=== PATIENT | female | born 1955 | race Caucasian/White ===

== ENCOUNTER 2021-04-03 06:38 | Outpatient (REF) | payer MEDICARE, MEDICAID, SELFPAY ==
[2021-04-03 08:09] LABS: Alanine Aminotransferase 9 U/L (0-31); Albumin Level 4.1 g/dL (3.5-5.0); Alkaline Phosphatase 78 U/L (39-117); Anion Gap 11 (12-20); Aspartate Amino Transferase 13 U/L (5-31); Bilirubin Total 0.3 mg/dL (0.0-1.0); Blood Urea Nitrogen 20 mg/dL (9-16); Calcium 9.3 mg/dL (8.4-10.2); Carbon Dioxide 26 mmol/L (22-29); Chloride 110 mmol/L (96-108); Estimated Glomerular Filt Rate > 60; Glucose Fasting 136 mg/dL (60-99); Potassium 4.3 mmol/L (3.3-5.1); Sodium 143 mmol/L (135-145); Total Protein 6.6 g/dL (6.5-8.0)
== END 2021-04-03 06:39 | disposition home or self-care (01) ==
LOC: HO.LAB 06:38
PROVIDERS: Absent Provider Nurse Practitioner Family; PCP Internal Medicine; Visit Provider Internal Medicine
DX: Z13.1 Encounter for screening for diabetes mellitus (principal)
CPT/HCPCS: 36415; 80053

== ENCOUNTER 2021-06-02 12:05 | Outpatient (REF) | payer MEDICARE, MEDICAID, SELFPAY ==
--- NOTE | ~2021-06-02 | MM_ITS ---
EXAMINATION: BONE DENSITOMETRY CLINICAL INDICATION: Asymptomatic menopausal state. COMPARISON: Previous BD dated 07/20/2011 and baseline BD dated 09/11/2005. TECHNIQUE: Using a [employer] DXA System (software version: 13.1) manufactured by [employer], dual-energy x-ray absorptiometry was performed of the lumbar spine and left hip. The images are of good technical quality. Summary results are attached. FINDINGS: AP SPINE L1-L4: Current: BMD 1.004 g/cm2, Z-score 0.7, T-score -1.5, osteopenia, 1.6% increase from previous, 3.2% increase from baseline (<5% change is not significant). Prior: BMD 0.988 g/cm2. Baseline: BMD 0.973 g/cm2. LEFT FEMUR, NECK: Current: BMD 0.757 g/cm2, Z-score -0.2, T-score -2.0, osteopenia. Prior: BMD 0.850 g/cm2. Baseline: BMD 0.898 g/cm2. LEFT FEMUR, TOTAL: Current: BMD 0.903 g/cm2, Z-score 0.8, T-score -0.8, normal, 10.1% decrease from previous, 12.2% decrease from baseline (<5% change is not significant). Prior: BMD 1.004 g/cm2. Baseline: BMD 1.029 g/cm2. IDENTIFIED RISK FACTORS: Menopause, tobacco use (current smoker). HISTORY OF FRACTURE: None listed. MEDICATIONS: None listed. MM/XR DEXA axial skeleton IMPRESSION: 1. DIAGNOSIS: Osteopenia based on the lowest T-score value of -2.0 in the femoral neck applying World Health Organization criteria. 2. 10-YEAR FRACTURE RISK PREDICTION, FRAX: Major osteoporotic fracture (clinical spine, forearm, hip or shoulder) 9.9%. Hip fracture 2.7%. 3. Treatment Recommendations: NOF guidelines recommend consideration for treatment in postmenopausal women and men age 50 and older presenting with the following: -A hip or vertebral (clinical or morphometric) fracture. -T-score less than or equal to -2.5 at the femoral neck or spine after appropriate evaluation to exclude secondary causes. -Low bone mass at the hip or spine and a 10-year fracture probability by FRAX of greater than or equal to 3% for hip fracture or greater than or equal to 20% for major osteoporotic fracture based on the [place] adapted WHO algorithm. 4. Other Recommendations: All treatment decisions require clinical judgment and consideration of individual patient factors, including patient preferences, comorbidities, previous drug use, risk factors not captured in the FRAX model (e.g. frailty, falls, vitamin D deficiency, increased bone turnover, interval significant decline in bone density) and possible under or overestimation of fracture risk by FRAX. Additional medical evaluation for secondary cause of low bone mineral density may be appropriate. FUTURE SCAN RECOMMENDATION: People with diagnosed cases of osteoporosis or at high risk for fracture should have regular bone mineral density tests. For patients eligible for Medicare, routine testing is allowed once every 2 years. The testing frequency can be increased to one year for patients who have rapidly progressing disease, those who are receiving or discontinuing medical therapy to restore bone mass, or have additional risk factors.
--- NOTE | ~2021-06-02 | MM_ITS ---
EXAMINATION: MM SCREENING DIGITAL BREAST TOMOSYNTHESIS, BILATERAL CLINICAL INFORMATION: Screening. Asymptomatic. The lifetime risk of breast cancer based on the Tyrer-Cuzick Model is 5%. COMPARISON: Mammography: 05/02/2020, 04/24/2019, 04/22/2018 TECHNIQUE: Digital breast tomosynthesis is performed in both the craniocaudal and mediolateral oblique views along with computer-aided detection (CAD). Synthesized 2D images are generated from the tomosynthesis. FINDINGS: The breasts are heterogeneously dense, which may obscure small masses (ACR BI-RADS breast composition Category c). There are no significant masses, abnormal calcifications, or other abnormalities. Breast tissue composition borders on average fibroglandular. Parenchymal pattern similar to prior studies. No developing density. MM/MM tomosynthesis screening BI IMPRESSION: No mammographic evidence of malignancy. ASSESSMENT: BI-RADS 1: Negative RECOMMENDATION: Routine annual mammography screening. This patient's information was entered into a reminder system with a target due date for their next mammogram.
== END 2021-06-02 12:06 | disposition home or self-care (01) ==
LOC: HO.MAMMO 12:05
PROVIDERS: PCP Internal Medicine; Visit Provider Nurse Practitioner Family
DX: Z12.31 Encounter for screening mammogram for malignant neoplasm of breast (principal); Z13.820 Encounter for screening for osteoporosis; M85.80 Other specified disorders of bone density and structure, unspecified site; Z78.0 Asymptomatic menopausal state
CPT/HCPCS: 77063; 77067; 77080

== ENCOUNTER 2022-01-08 06:13 | Outpatient (REF) | payer MEDICARE, MEDICAID, SELFPAY ==
[2022-01-08 06:43] LABS: MANUAL DIFF FLAG NO
[2022-01-08 07:28] LABS: Basophils Absolute Auto 0.1 X10*3/uL (0.0-0.2); Basophils Percent Auto 0.5 % (0-2); Eosinophils Absolute Auto 0.3 X10*3/uL (0.0-0.4); Eosinophils Percent Auto 2.7 % (0-4); Hemoglobin 15.4 g/dl (12.0-16.0); Imm Gran Abs Auto 0.03 X10*3/uL (0.00-0.03); Imm Gran Pct Auto 0.3 % (0.0-0.4); Lymphocytes Absolute Auto 2.3 X10*3/uL (1.2-4.9); Lymphocytes Percent Auto 23.7 % (20-40); Mean Corpuscular HGB Conc 32.8 g/dl (31.0-35.0); Mean Corpuscular Hemoglobin 29.9 pg (27.0-33.0); Mean Corpuscular Volume 91.3 fL (80.0-98.0); Mean Platelet Volume 9.1 fL (9.4-12.3); Monocytes Absolute Auto 0.8 X10*3/uL (0.1-1.2); Monocytes Percent Auto 8.6 % (2-11); Neutrophils Absolute Auto 6.2 x10*3/uL (2.0-8.3); Neutrophils Percent Auto 64.2 % (45-73); Platelet Count 236 X10*3/uL (160-400); Red Blood Count 5.15 X10*6/uL (4.20-5.50); Red Cell Distribution Width 12.7 % (11.0-16.0); White Blood Count 9.7 X10*3/uL (4.8-10.8)
[2022-01-08 08:09] LABS: Alanine Aminotransferase 14 U/L (0-31); Albumin Level 4.1 g/dL (3.5-5.0); Alkaline Phosphatase 84 U/L (39-117); Anion Gap 14 (12-20); Aspartate Amino Transferase 19 U/L (5-31); Bilirubin Total 0.5 mg/dL (0.0-1.0); Blood Urea Nitrogen 13 mg/dL (9-16); Calcium 9.4 mg/dL (8.4-10.2); Carbon Dioxide 28 mmol/L (22-29); Chloride 104 mmol/L (96-108); Cholesterol 219 mg/dL; Estimated Glomerular Filt Rate > 60; Glucose Fasting 146 mg/dL (60-99); HDL Cholesterol 49 mg/dL; LDL Cholesterol Calculated 142 mg/dl; Potassium 5.5 mmol/L (3.3-5.1); Sodium 140 mmol/L (135-145); Total Protein 6.7 g/dL (6.5-8.0); Triglycerides 141 mg/dL
[2022-01-08 08:15] LABS: Thyroid Stimulating Hormone 2.55 uIU/mL (0.32-4.0)
== END 2022-01-08 06:14 | disposition home or self-care (01) ==
LOC: HO.LAB 06:13
PROVIDERS: PCP Internal Medicine; Visit Provider Internal Medicine
DX: Z00.00 Encounter for general adult medical examination without abnormal findings (principal); E78.5 Hyperlipidemia, unspecified
CPT/HCPCS: 36415; 80053; 80061; 84443; 85025

== ENCOUNTER 2022-06-14 10:47 | Outpatient (REF) | payer MEDICARE, MEDICAID, SELFPAY ==
--- NOTE | ~2022-06-14 | MM_ITS ---
EXAMINATION: MM SCREENING DIGITAL BREAST TOMOSYNTHESIS, BILATERAL CLINICAL INFORMATION: Screening. Asymptomatic. COMPARISON: Mammography: June 02, 2021 and studies dating back to February 10, 2016 TECHNIQUE: Digital breast tomosynthesis is performed in both the craniocaudal and mediolateral oblique views along with computer-aided detection (CAD). Synthesized 2D images are generated from the tomosynthesis. FINDINGS: The breasts are heterogeneously dense, which may obscure small masses (ACR BI-RADS breast composition Category c). There are no significant masses, abnormal calcifications, or other abnormalities. MM/MM tomosynthesis screening BI IMPRESSION: No significant changes from prior exam. ASSESSMENT: BI-RADS 1: Negative RECOMMENDATION: Routine annual mammography screening. This patient's information was entered into a reminder system with a target due date for their next mammogram.
== END 2022-06-14 10:48 | disposition home or self-care (01) ==
LOC: HO.MAMMO 10:47
PROVIDERS: Visit Provider Internal Medicine
DX: Z12.31 Encounter for screening mammogram for malignant neoplasm of breast (principal)
CPT/HCPCS: 77063; 77067

== ENCOUNTER 2023-03-29 10:24 | Outpatient (AMB) | payer MEDICARE, MEDICAID, SELFPAY ==
--- NOTE | 2023-03-29 10:31 | AM.OFFVISMDC ---
Intake Vital Signs 03/29/23 10:38 03/29/23 11:09 Height 5 ft 1 in Weight 134 lb 6 oz BMI 25.4 BP 162/90 H 152/90 H Blood Pressure Location Lt brachial Lt brachial Position Sitting Sitting Pulse 77 Pulse Source Pulse Oximeter Pulse Oximetry (%) 95 Oxygen Delivery Method Room Air Intake Visit Reasons: [facility] Intake Note: Patient is here for an Annual Wellness Visit. Internet Developer Required: No Accompanied by: Self / Same As Patient Allergies Sulfa (Sulfonamide Antibiotics) [Sulfa (Sulfonamides)] Allergy (Mild, Verified 03/29/23 11:02) UNKNOWN Medication List - Last Reconciled 03/29/23 by HOA Ramsey albuterol sulfate 90 mcg/actuation (Ventolin HFA) 2 puffs inhalation Q4-6H PRN lorazepam 1 mg PO BID PRN naproxen (Naprosyn) 500 mg PO BID PRN HPI [facility] HPI Details Patient is a 68-year-old female who presents today for subsequent wellness visit.? Patient of Dr. Pierre. Patient had a negative Cologuard 04/2021.? Bone density screen 05/2021 which showed osteopenia.? Mammogram negative 06/2022. Up-to-date with immunizations. [place] of care was reviewed with the patient and she was provided with a screening schedule.? Patient has a healthcare proxy in place and she will provide office with a copy, patient was provided with a MOLST form. Patient reports normal blood pressures at home 120s/70s. ? PFSH Medical History Hypertension Post-menopausal Screening for breast cancer Screening for diabetes mellitus Surgical History History of tonsillectomy History of tubal ligation Family History Father Medical history unknown Mother Diabetes Social History Housing: Apartment Alcohol intake: former Year quit: 2019 Patient Tobacco Use Status: Current someday Tobacco user Tobacco use type: Cigarette Cigarettes Per Day: 8 e-Cigarette/Vaping Use: Never Used service: No Current occupational status: disabled Cognitive needs: No Hearing needs: No Vision needs: No Questionnaire Medicare Wellness Checkup [age] 65-70 What gender do you identify with?: female During the past 4 weeks, how much have you been bothered by emotional problems such as feeling anxious, depressed, irritable, sad or downhearted, and blue?: not at all During the past 4 weeks, has your physical & emotional health limited your social activities with family, friends, neighbors, or groups?: not at all During the past 4 weeks, how much bodily pain have you generally had?: very mild pain During the past 4 weeks, was someone available to help you if you needed & wanted help?: yes, as much as I wanted During the past 4 weeks, what was the hardest physical activity you could do for at least 2 minutes?: very light Can you get to places out of walking distance without help? (For eg., can you travel alone on buses, taxis or drive your car?): Yes Can you go shopping for groceries or clothes without someone's help?: Yes Can you prepare your own meals?: Yes Can you do your housework without help?: Yes Because of any health problems, do you need the help of another person with your personal care needs such as eating, bathing, dressing or getting around the house?: No Can you handle your own money without help?: Yes During the past 4 weeks, how would you rate your health in general?: excellent During the past 4 weeks how have things been going for you?: very well; could hardly better Are you having difficulties driving your car?: not applicable, I don't use a car Do you always fasten your seat belt when you are in a car?: yes, usually During past 4 weeks, have you been bothered by the following: never: Falling or dizzy when standing up, Sexual problems?, Trouble eating well?, Teeth or denture problems? and Problems using the telephone? and seldom: Tiredness or fatigue? Have you fallen 2 or more times in the past year?: No Are you afraid of falling?: No Are you a smoker?: yes, and I might quit During the past 4 weeks, how many drinks of wine, beer, or other alcoholic beverages did you have?: no alcohol at all Do you exercise for about 20 minutes 3 or more times a week?: yes, all the time Have you been given information to help with the following?: no: Hazards in your house that might hurt you? and no: Keeping track of your medications? How often do you have trouble taking medicines the way you have been told to take them?: I always take medicine as prescribed How confident are you that you can control & manage most of your health problems?: very confident What is your race?: White Mini Mental State Exam (MMSE) Orientation What is the (year) (season) (date) (day) (month)?: year, season, date, day and month Score Score: 5 Activity of Daily Living Bathing - sponge bath, tub bath or shower: receives no assistance (gets in/out by self, if usual bathing means Dressing - getting clothes from closets & drawers, including inner/outer garments & fasteners.: gets clothes & gets completely dressed without help Toileting - going to the 'toilet room' for urine/bowel elimination & cleaning self/arranging clothes: goes to toilet room, cleans self, arranges clothes without help Transfer: moves in & out of bed and chair without help (may use support object) Continence: controls urination/bowel movements completely by self Feeding: feeds self without help Total Score: 0 Information obtained from: patient Using telephone: independent Traveling: dependent Shopping: independent Preparing meals: independent Housework: independent Taking medicine: independent Managing money: independent PHQ-9 Over the last 2 weeks, how often have you been bothered by any of the following problems? 1. Little interest or pleasure in doing things: not at all 2. Feeling down, depressed, or hopeless: not at all 3. Trouble falling or staying asleep, or sleeping too much: not at all 4. Feeling tired or having little energy: not at all 5. Poor appetite or overeating: not at all 6. Feeling bad about yourself - or that you are a failure or have let yourself or your family down: not at all 7. Trouble concentrating on things, such as reading the newspaper or watching television: not at all 8. Moving or speaking so slowly that other people could have noticed. Or the opposite - being so fidgety or restless that you have been moving around a lot more than usual: not at all 9. Thoughts that you would be better off or of hurting yourself in some way: not at all Total score: 0 Depression Screening Interpretation: Negative 93536 - PHQ-9 Billing: Yes Source: Developed by Drs. Colby Johnson, Adrianna Becerra, Jorge Roper and colleagues, with an educational pilo from [employer]. Physical Exam Vital Signs: Last Vital Signs Pulse 77 03/29/23 10:38 BP 162/90 H 03/29/23 10:38 Pulse Ox 95 03/29/23 10:38 Oxygen Delivery Method Room Air 03/29/23 10:38 BMI result Body Mass Index 25.4 Const General: cooperative and no acute distress Orientation/consciousness: patient oriented x3 HEENT Other: Whisper test: pass Neuro Other: Balance: Normal Get up and walk: able to Romberg: negative Tandem gait: unable to General: patient oriented x3 Results AMB Hemoglobin A1c AMB Hemoglobin A1c 5.8 % Last Edit by VIKA Whitmore on 03/29/23 10:56 Results Reviewed Results Reviewed: Laboratory Last Values Hgb A1c (Clinic) 5.8 % (4.0-6.0) 03/29/23 10:46 Assessment & Plan Assessment & Plan (1) Adult general medical exam: Code(s): Z00.00 - Encounter for general adult medical examination without abnormal findings (2) Insomnia disorder: Code(s): G47.00 - Insomnia, unspecified Plan: Patient is on lorazepam 1 mg b.i.d. as needed (3) Cerebral palsy: Code(s): G80.9 - Cerebral palsy, unspecified Plan: Patient is able to perform activities of daily living. Patient is noted to have speech impairment which is related to her cerebral palsy per patient. She does not see a specialist. (4) Hypertension: Code(s): I10 - Essential (primary) hypertension Plan: Reinforced low-sodium diet and exercise as tolerated. Goal BP equal or less than 140/90 Patient reports normal blood pressures at home (5) Screening for diabetes mellitus: Code(s): Z13.1 - Encounter for screening for diabetes mellitus Plan: A1c 5.8 today Plan Keep appointment with PCP as scheduled or follow-up sooner as needed Orders: Orders AMB Hemoglobin A1c Today Z13.1 - Encounter for screening for diabetes mellitus Quality Reporting (2019) Depression/Bipolar (159/160/161/177) PHQ-9: Total score: 0 Coding Level of Care Code Medicare Subsequent (G0439) Diagnoses Adult general medical exam Z00.00 Insomnia disorder G47.00 Cerebral palsy G80.9 Hypertension I10 Screening for diabetes mellitus Z13.1 CPT Codes Advance Care Planning - Time spent: 1-15 minutes, not on file ([id number]) Advance Care Planning Advance Care Planning discussion: Exists, not on file Date of discussion: 03/29/23 Who was present: pt and clerical assigner Forms completed: None Time spent: 1-15 minutes, not on file Actual minutes spent: 2 Did not discuss due to Cultural/Spiritual beliefs: No
[2023-03-29 10:38] VITALS: BP 162/90; PULSE 77; O2SAT 95; BMI 25.4
[2023-03-29 11:09] VITALS: BP 152/90
== END 2023-03-29 11:12 | disposition home or self-care (01) ==
PROVIDERS: Visit Provider Nurse Practitioner Family
DX: Z00.00 Encounter for general adult medical examination without abnormal findings (principal); G47.00 Insomnia, unspecified; G80.9 Cerebral palsy, unspecified; I10 Essential (primary) hypertension; Z13.1 Encounter for screening for diabetes mellitus
CPT/HCPCS: 1124F; 83036; G0439

== ENCOUNTER 2023-05-24 08:46 | Outpatient (AMB) | payer MEDICARE, MEDICAID, SELFPAY ==
--- NOTE | 2023-05-24 09:49 | MHC.OFFWIV ---
Intake Vital Signs 05/24/23 09:51 Height 5 ft 1 in Weight 138 lb BMI 26.1 BP 150/80 H Blood Pressure Location Lt brachial Position Sitting Pulse 80 Pulse Source Pulse Oximeter Temp 97.9 F Temp Source Temporal Artery Scan Pulse Oximetry (%) 96 Oxygen Delivery Method Room Air Intake Visit Reasons: EP Cold symptoms [id number] Intake Note: pt is here for c/o wheezing, possible bronchitis Patient Tobacco Use Status: Current someday Tobacco user Allergies Sulfa (Sulfonamide Antibiotics) [Sulfa (Sulfonamides)] Allergy (Mild, Verified 05/24/23 10:40) UNKNOWN Medication List - Last Reconciled 05/24/23 by Linden Bowles MD albuterol sulfate 90 mcg/actuation (Ventolin HFA) 2 puffs inhalation Q4-6H PRN lorazepam 1 mg PO BID PRN naproxen (Naprosyn) 500 mg PO BID PRN Do you need a note to return to daycare/school/sports/work: Yes HPI EP Cold symptoms [id number] HPI Details Patient presents for a sick visit. Reporting symptoms of sinus congestion, sore throat and difficulty swallowing. Low-grade fever. No family member is sick. No recent travel. Patient reports symptoms of malaise and fatigue.. Patient tested for COVID at home and was negative. [facility] Medical History Hypertension Post-menopausal Screening for breast cancer Screening for diabetes mellitus Surgical History History of tonsillectomy History of tubal ligation Family History Father Medical history unknown Mother Diabetes Social History Housing: Apartment Alcohol intake: former Year quit: 2019 Patient Tobacco Use Status: Current someday Tobacco user Tobacco use type: Cigarette Cigarettes Per Day: 8 e-Cigarette/Vaping Use: Never Used service: No Current occupational status: disabled Cognitive needs: No Hearing needs: No Vision needs: No Physical Exam Vital Signs: Last Vital Signs Temp 97.9 F 05/24/23 09:51 Pulse 80 05/24/23 09:51 BP 150/80 H 05/24/23 09:51 Pulse Ox 96 05/24/23 09:51 Oxygen Delivery Method Room Air 05/24/23 09:51 BMI result Body Mass Index 26.1 Const General: cooperative and healthy appearing Nutritional Appearance: well nourished Orientation/consciousness: patient oriented x3 Limitations: no limitations HEENT Head: Yes normal to inspection Eyes General: appearance normal, both eyes and all related structures Neck Neck: Yes normal visual inspection Chest Chest palpation & inspection: normal palpation of entire chest wall Resp Effort & Inspection: normal respiratory effort Neuro General: patient oriented x3 Assessment & Plan Assessment & Plan (1) Upper respiratory tract infection: Code(s): J06.9 - Acute upper respiratory infection, unspecified Plan: Antibiotics ordered. Increase fluid intake. Tylenol for aches and pains. If symptoms worsen, follow-up here for a recheck. Coding Level of Care Code Est Pt Level 3 (53667) Diagnoses Upper respiratory tract infection J06.9
[2023-05-24 09:51] VITALS: BP 150/80; PULSE 80; TEMP 36.6; O2SAT 96; BMI 26.1
== END 2023-05-24 10:56 | disposition home or self-care (01) ==
PROVIDERS: PCP Internal Medicine; Visit Provider Internal Medicine
DX: J06.9 Acute upper respiratory infection, unspecified (principal)
CPT/HCPCS: 99213

== ENCOUNTER 2023-07-09 10:20 | Outpatient (AMB) | payer MEDICARE, MEDICAID, SELFPAY ==
[2023-07-09 10:22] VITALS: BP 140/82; PULSE 82; O2SAT 98; BMI 25.3
--- NOTE | 2023-07-09 10:22 | A.OFFPC_ITS ---
Vital Signs 07/09/23 10:22 Height 5 ft 1 in Weight 134 lb BMI 25.3 BP 140/82 H Blood Pressure Location Lt brachial Position Sitting Pulse 82 Pulse Source Pulse Oximeter Pulse Oximetry (%) 98 Oxygen Delivery Method Room Air Intake Visit Reasons: 1 year F/u Headline Writer Required: No Prior Authorization Nurse: Not Required per policy Accompanied by: Self / Same As Patient Allergies Sulfa (Sulfonamide Antibiotics) [Sulfa (Sulfonamides)] Allergy (Mild, Verified 05/24/23 10:40) UNKNOWN Medication List - Last Reconciled 07/09/23 by Kody Pierre MD albuterol sulfate 90 mcg/actuation (Ventolin HFA) 2 puffs inhalation Q4-6H PRN lorazepam 1 mg PO BID PRN naproxen (Naprosyn) 500 mg PO BID PRN Tobacco use date assessed: 07/09/22 Fall risk assessment: No Falls in past year Last assessed Fall Risk: 07/09/23 Dental Screening Dental Screen Date: 07/09/23 Did you have a dental visit in the last 12 months?: No Did you have a dental problem in the last 6 months where you did not have access to dental care?: No Was dental information given to patient?: Patient has dentist HPI 1 year F/u HPI Details asthma anxiety and osteoarthritis; doing well and stable on rx PFSH Medical History Post-menopausal Screening for breast cancer Screening for diabetes mellitus Hypertension Surgical History History of tubal ligation History of tonsillectomy Family History Father Medical history unknown Mother Diabetes Social History Housing: Apartment Alcohol intake: former Year quit: 2019 Patient Tobacco Use Status: Current someday Tobacco user Tobacco use type: Cigarette Cigarettes Per Day: 8 e-Cigarette/Vaping Use: Never Used service: No Current occupational status: disabled Cognitive needs: No Hearing needs: No Vision needs: Yes Questionnaire PHQ-9 Over the last 2 weeks, how often have you been bothered by any of the following problems? 1. Little interest or pleasure in doing things: not at all 2. Feeling down, depressed, or hopeless: not at all 3. Trouble falling or staying asleep, or sleeping too much: not at all 4. Feeling tired or having little energy: not at all 5. Poor appetite or overeating: not at all 6. Feeling bad about yourself - or that you are a failure or have let yourself or your family down: not at all 7. Trouble concentrating on things, such as reading the newspaper or watching television: not at all 8. Moving or speaking so slowly that other people could have noticed. Or the opposite - being so fidgety or restless that you have been moving around a lot more than usual: not at all 9. Thoughts that you would be better off or of hurting yourself in some way: not at all Total score: 0 Depression Screening Interpretation: Negative Depression Screening Done: Yes 98688 - PHQ-9 Billing: Yes Source: Developed by Drs. Colby Johnson, Adrianna Becerra, Jorge Roper and colleagues, with an educational pilo from [employer]. Thrive Questionnaire Date Thrive assessed: 07/09/23 I am a: Patient What is your living situation today?: I have a steady place to live Within the past 12 months, did the food you bought not last and you didn't have the money to get more?: Never true Within the past 12 months, did you worry whether your food would run out before you got money to buy more?: Never true Do you have trouble paying for medicines?: No Do you have trouble getting transportation to medical appointments?: No Do you have trouble paying your heating and electricity bill?: No Do you have trouble taking care of your child, family member or friend?: No Do you have trouble with day-to-day activities such as bathing, preparing meals, shopping, managing finances, etc.?: No Are you currently unemployed and looking for a job?: No Are you interested in more education?: No Please select the resources that you would like help with: None AUDIT C Alcohol Use Questionnaire (AUDIT-C) 1. How often do you have a drink containing alcohol?: Never 3. How often do you have six or more drinks on one occasion?: Never Total Score: 0 Score Reviewed/Action Taken: Yes TUYET-7 AMB Questionnaire TUYET-7 Date TUYET - 7 assessed: 07/09/23 Feeling nervous, anxious, or on edge: 0 = Not at all Not being able to stop or control worryin = Not at all Worrying too much about different things: 0 = Not at all Trouble relaxin = Not at all Being so restless that it is hard to sit still: 0 = Not at all Becoming easily annoyed or irritable: 0 = Not at all Feeling afraid as if something awful might happen: 0 = Not at all Total TUYET-7 score (0-4 normal; 5-9 mild; 10-14 moderate; 15-21 severe): 0 Source: Developed by Drs. Colby Johnson, Adrianna Becerra, Jorge Roper and colleagues, with an educational pilo from [employer]. TUYET-7 Assessment Billing TUYET-7 Assessment Tool: TUYET-7 Assessment 94797 Review of Systems Const Denies chills, Denies headache(s) and Denies weight loss ENT Denies headache(s) Card Denies chest pain, Denies syncope, Denies irregular heart rhythm and Denies dyspnea Resp Denies chest congestion, Denies cough and Denies dyspnea GI Denies abdominal pain, Denies change in stool character, Denies nausea and Denies vomiting Musc Denies deformity and Denies joint swelling Neuro Denies syncope and Denies headache(s) Physical exam (Primary Care) Vital Signs: Last Vital Signs Pulse 82 07/09/23 10:22 BP 140/82 H 07/09/23 10:22 Pulse Ox 98 07/09/23 10:22 Oxygen Delivery Method Room Air 07/09/23 10:22 BMI result Body Mass Index 25.3 Tobacco/Smoking Status: Tobacco use Status Tobacco use date assessed 07/09/22 07/09/23 10:23 Patient Tobacco Use Status Current someday Tobacco 07/09/23 10:23 Tobacco use type Cigarette 07/09/23 10:23 e-Cigarette/Vaping Use Never Used 07/09/23 10:23 PHQ-9: PHQ-9 Score PHQ-9: Total score 0 07/09/23 10:35 Depression Screening Interpretation: Negative Thrive Assessment: Date of Thrive Assessment Date Thrive assessed 07/09/23 07/09/23 10:23 Const General: cooperative, comfortable, no acute distress and alert Neck Neck: Yes no lymphadenopathy Thyroid: Thyroid normal Resp Effort & Inspection: normal respiratory effort Auscultation: clear to auscultation bilaterally Percussion: percussion normal Cardio Jugular venous distension: no JVD Palpation: normal PMI Rate: regular rate Rhythm: regular rhythm Heart sounds: S1 normal heart sound present and S2 normal heart sound present GI Inspection: Yes normal to inspection Palpation (GI): No hepatosplenomegaly present Skin General skin exam: no rashes or lesions noted Extrem General: Yes no clubbing, cyanosis or edema Assessment and Plan Assessment & Plan (1) Anxiety: Code(s): F41.9 - Anxiety disorder, unspecified Plan: stable; same rx (2) Asthma: Code(s): J45.909 - Unspecified asthma, uncomplicated Plan: stable; same rx (3) Osteoarthritis: Code(s): M19.90 - Unspecified osteoarthritis, unspecified site Plan: stable; same rx Orders: Orders Thyroid Stimulating Hormone Today E03.9 - Hypothyroidism, unspecified Complete Blood Count Auto Diff Today D64.9 - Anemia, unspecified Lipid Panel Today E78.5 - Hyperlipidemia, unspecified Comprehensive [place]. Panel Fast Today N28.9 - Disorder of kidney and ureter, unspecified Coding Level of Care Code Est Pt Level 4 (75736) Diagnoses Anxiety F41.9 Asthma J45.909 Osteoarthritis M19.90 Additional Codes TUYET-7 Assessment Billing - TUYET-7 Assessment Tool: TUYET-7 Assessment 63636 ([id number])
== END 2023-07-09 10:51 | disposition home or self-care (01) ==
PROVIDERS: Visit Provider Internal Medicine
DX: F41.9 Anxiety disorder, unspecified (principal); J45.909 Unspecified asthma, uncomplicated; M19.90 Unspecified osteoarthritis, unspecified site
CPT/HCPCS: 99214

== ENCOUNTER 2023-07-18 14:43 | Outpatient (REF) | payer MEDICARE, MEDICAID, SELFPAY | END 2023-07-18 14:44 | disposition home or self-care (01) | LOC: HO.MAMMO 14:43 | PROVIDERS: PCP Internal Medicine; Visit Provider Internal Medicine | DX: Z12.31 Encounter for screening mammogram for malignant neoplasm of breast (principal) | CPT/HCPCS: 77063; 77067 ==

== ENCOUNTER → 2023-07-18 15:15 | Outpatient (BNV) | payer MEDICARE, MEDICAID, SELFPAY | PROVIDERS: PCP Internal Medicine; Visit Provider Radiology Diagnostic Radiology | DX: Z12.31 Encounter for screening mammogram for malignant neoplasm of breast (principal) | CPT/HCPCS: 77063; 77067 ==

== ENCOUNTER 2023-09-16 06:13 | Outpatient (REF) | payer OTHER, SELFPAY ==
[2023-09-16 06:35] LABS: MANUAL DIFF FLAG NO
[2023-09-16 08:03] LABS: Basophils Absolute Auto 0.1 X10*3/uL (0.0-0.2); Basophils Percent Auto 0.8 % (0-2); Eosinophils Absolute Auto 0.7 X10*3/uL (0.0-0.4); Eosinophils Percent Auto 8.2 % (0-4); Hematocrit 45.1 % (37.0-47.0); Hemoglobin 14.9 g/dl (12.0-16.0); Imm Gran Abs Auto 0.02 X10*3/uL (0.00-0.03); Imm Gran Pct Auto 0.2 % (0.0-0.4); Lymphocytes Absolute Auto 2.9 X10*3/uL (1.2-4.9); Mean Corpuscular Volume 90.7 fL (80.0-98.0); Mean Platelet Volume 9.5 fL (9.4-12.3); Monocytes Absolute Auto 0.8 X10*3/uL (0.1-1.2); Monocytes Percent Auto 8.4 % (2-11); Neutrophils Absolute Auto 4.6 x10*3/uL (2.0-8.3); Neutrophils Percent Auto 50.4 % (45-73); Platelet Count 231 X10*3/uL (160-400); Red Blood Count 4.97 X10*6/uL (4.20-5.50); Red Cell Distribution Width 12.6 % (11.0-16.0); White Blood Count 9.1 X10*3/uL (4.8-10.8)
[2023-09-16 08:10] LABS: Estimated Average Glucose 131 mg/dL; Hemoglobin A1c % 6.2 % (<6.0)
[2023-09-16 08:42] LABS: Alanine Aminotransferase 12 U/L (0-31); Albumin Level 3.8 g/dL (3.5-5.0); Alkaline Phosphatase 74 U/L (39-117); Anion Gap 14 (12-20); Aspartate Amino Transferase 18 U/L (5-31); Bilirubin Total 0.4 mg/dL (0.0-1.0); Blood Urea Nitrogen 18 mg/dL (9-16); Calcium 9.3 mg/dL (8.4-10.2); Carbon Dioxide 25 mmol/L (22-29); Chloride 107 mmol/L (96-108); Cholesterol 201 mg/dL (<200); Estimated Glomerular Filt Rate > 60; Glucose Fasting 122 mg/dL (60-99); HDL Cholesterol 54 mg/dL (>40); LDL Cholesterol Calculated 127 mg/dL (<100); Potassium 4.2 mmol/L (3.3-5.1); Sodium 142 mmol/L (135-145); Total Protein 6.5 g/dL (6.5-8.0); Triglycerides 104 mg/dL (<150)
[2023-09-16 08:59] LABS: Thyroid Stimulating Hormone 3.53 uIU/mL (0.32-4.0)
== END 2023-09-16 06:14 | disposition home or self-care (01) ==
LOC: HO.LAB 06:13
PROVIDERS: PCP Internal Medicine; Visit Provider Internal Medicine
DX: E03.9 Hypothyroidism, unspecified (principal); D64.9 Anemia, unspecified; R73.9 Hyperglycemia, unspecified; E78.5 Hyperlipidemia, unspecified; N28.9 Disorder of kidney and ureter, unspecified
CPT/HCPCS: 36415; 80053; 80061; 83036; 84443; 85025

== ENCOUNTER 2023-09-24 10:28 | Outpatient (AMB) | payer OTHER, SELFPAY ==
[2023-09-24 10:31] VITALS: BP 142/88; PULSE 72; O2SAT 97; BMI 25.5
--- NOTE | 2023-09-24 10:31 | MHC.PC.OV ---
Vital Signs 09/24/23 10:31 Height 5 ft 1 in Weight 135 lb BMI 25.5 BP 142/88 H Blood Pressure Location Lt brachial Position Sitting Pulse 72 Pulse Source Pulse Oximeter Pulse Oximetry (%) 97 Oxygen Delivery Method Room Air Intake Visit Reasons: Follow up Labs Oncology Registrar Required: No Blocker And Polisher Gold Wheel: Not Required per policy Accompanied by: Self / Same As Patient Allergies Sulfa (Sulfonamide Antibiotics) [Sulfa (Sulfonamides)] Allergy (Mild, Verified 09/24/23 10:31) UNKNOWN Medication List - Last Reconciled 09/24/23 by Kody Pierre MD albuterol sulfate 90 mcg/actuation (Ventolin HFA) 2 puffs inhalation Q4-6H PRN hydroxyzine pamoate 25 mg PO QID PRN lorazepam 1 mg PO BID PRN naproxen (Naprosyn) 500 mg PO BID PRN Tobacco use date assessed: 09/24/23 Fall risk assessment: No Falls in past year Last assessed Fall Risk: 09/24/23 Dental Screening Dental Screen Date: 09/24/23 Did you have a dental visit in the last 12 months?: Yes Did you have a dental problem in the last 6 months where you did not have access to dental care?: No Was dental information given to patient?: Patient has dentist HPI Follow up Labs HPI Details asthma on rx; doing well and compliant [facility] Medical History Post-menopausal Screening for breast cancer Screening for diabetes mellitus Hypertension Surgical History History of tubal ligation History of tonsillectomy Family History Father Medical history unknown Mother Diabetes Social History Housing: Apartment Alcohol intake: former Year quit: 2019 Patient Tobacco Use Status: Current someday Tobacco user Tobacco use type: Cigarette Cigarettes Per Day: 8 e-Cigarette/Vaping Use: Never Used service: No Current occupational status: disabled Cognitive needs: No Hearing needs: No Vision needs: Yes Questionnaire PHQ-9 Over the last 2 weeks, how often have you been bothered by any of the following problems? 1. Little interest or pleasure in doing things: not at all 2. Feeling down, depressed, or hopeless: not at all 3. Trouble falling or staying asleep, or sleeping too much: not at all 4. Feeling tired or having little energy: not at all 5. Poor appetite or overeating: not at all 6. Feeling bad about yourself - or that you are a failure or have let yourself or your family down: not at all 7. Trouble concentrating on things, such as reading the newspaper or watching television: not at all 8. Moving or speaking so slowly that other people could have noticed. Or the opposite - being so fidgety or restless that you have been moving around a lot more than usual: not at all 9. Thoughts that you would be better off or of hurting yourself in some way: not at all Total score: 0 Depression Screening Interpretation: Negative Depression Screening Done: Yes 65507 - PHQ-9 Billing: Yes Source: Developed by Drs. Colby Johnson, Adrianna Becerra, Jorge Roper and colleagues, with an educational pilo from [employer]. Thrive Questionnaire Date Thrive assessed: 08/07/23 I am a: Patient What is your living situation today?: I have a steady place to live Within the past 12 months, did the food you bought not last and you didn't have the money to get more?: Never true Within the past 12 months, did you worry whether your food would run out before you got money to buy more?: Never true Do you have trouble paying for medicines?: No Do you have trouble getting transportation to medical appointments?: No Do you have trouble paying your heating and electricity bill?: No Do you have trouble taking care of your child, family member or friend?: No Do you have trouble with day-to-day activities such as bathing, preparing meals, shopping, managing finances, etc.?: No Are you currently unemployed and looking for a job?: No Are you interested in more education?: No Please select the resources that you would like help with: None THRIVE Score: 0 AUDIT C Alcohol Use Questionnaire (AUDIT-C) 1. How often do you have a drink containing alcohol?: Never 3. How often do you have six or more drinks on one occasion?: Never Total Score: 0 Score Reviewed/Action Taken: Yes TUYET-7 AMB Questionnaire TUYET-7 Date TUYET - 7 assessed: 09/24/23 Feeling nervous, anxious, or on edge: 2 = More than half the days Not being able to stop or control worryin = Several days Worrying too much about different things: 2 = More than half the days Trouble relaxin = Several days Being so restless that it is hard to sit still: 0 = Not at all Becoming easily annoyed or irritable: 0 = Not at all Feeling afraid as if something awful might happen: 0 = Not at all Total TUYET-7 score (0-4 normal; 5-9 mild; 10-14 moderate; 15-21 severe): 6 Source: Developed by Drs. Colby Johnson, Adrianna Becerra, Jorge Roper and colleagues, with an educational pilo from [employer]. TUYET-7 Assessment Billing TUYET-7 Assessment Tool: TUYET-7 Assessment 60762 Review of Systems Const Denies chills, Denies headache(s) and Denies weight loss ENT Denies headache(s) Card Denies chest pain, Denies syncope, Denies irregular heart rhythm and Denies dyspnea Resp Denies chest congestion, Denies cough and Denies dyspnea GI Denies abdominal pain, Denies change in stool character, Denies nausea and Denies vomiting Musc Denies deformity and Denies joint swelling Neuro Denies syncope and Denies headache(s) Physical exam (Primary Care) Vital Signs: Last Vital Signs Pulse 72 09/24/23 10:31 BP 142/88 H 09/24/23 10:31 Pulse Ox 97 09/24/23 10:31 Oxygen Delivery Method Room Air 09/24/23 10:31 BMI result Body Mass Index 25.5 Tobacco/Smoking Status: Tobacco use Status Tobacco use date assessed 09/24/23 09/24/23 10:32 Patient Tobacco Use Status Current someday Tobacco 09/24/23 10:32 Tobacco use type Cigarette 09/24/23 10:32 e-Cigarette/Vaping Use Never Used 09/24/23 10:32 PHQ-9: PHQ-9 Score PHQ-9: Total score 0 09/24/23 10:32 Depression Screening Interpretation: Negative Thrive Assessment: Date of Thrive Assessment Date Thrive assessed 08/07/23 09/24/23 10:32 Const General: cooperative, comfortable, no acute distress and alert Neck Neck: Yes no lymphadenopathy Thyroid: Thyroid normal Resp Effort & Inspection: normal respiratory effort Auscultation: clear to auscultation bilaterally Percussion: percussion normal Cardio Jugular venous distension: no JVD Palpation: normal PMI Rate: regular rate Rhythm: regular rhythm Heart sounds: S1 normal heart sound present and S2 normal heart sound present GI Inspection: Yes normal to inspection Palpation (GI): No hepatosplenomegaly present Skin General skin exam: no rashes or lesions noted Extrem General: Yes no clubbing, cyanosis or edema Assessment and Plan Assessment & Plan (1) Asthma: Code(s): J45.909 - Unspecified asthma, uncomplicated Plan: stable; same rx Medications: New zolpidem (Ambien) 5 mg PO BEDTIME PRN 30 tabs 3RF insomnia Coding Level of Care Code Est Pt Level 3 (93234) Diagnoses Asthma J45.909 Additional Codes TUYET-7 Assessment Billing - TUYET-7 Assessment Tool: TUYET-7 Assessment 20357 ([id number])
== END 2023-09-24 10:56 | disposition home or self-care (01) ==
PROVIDERS: PCP Internal Medicine; Visit Provider Internal Medicine
DX: J45.909 Unspecified asthma, uncomplicated (principal)
CPT/HCPCS: 99213

== ENCOUNTER 2023-11-25 09:21 | Outpatient (AMB) | payer OTHER, SELFPAY ==
[2023-11-25 09:39] VITALS: BP 140/72; PULSE 50; O2SAT 98; BMI 26.3
--- NOTE | 2023-11-25 09:39 | A.OFFPC_ITS ---
Vital Signs 11/25/23 09:39 Height 5 ft 1 in Weight 139 lb BMI 26.3 BP 140/72 H Blood Pressure Location Lt brachial Position Sitting Pulse 50 Pulse Source Pulse Oximeter Pulse Oximetry (%) 98 Oxygen Delivery Method Room Air Intake Visit Reasons: stomach issues Tree Trimmer Helper Required: No Learning And Development Specialist: Not Required per policy Accompanied by: Self / Same As Patient Allergies Sulfa (Sulfonamide Antibiotics) [Sulfa (Sulfonamides)] Allergy (Mild, Verified 11/25/23 09:39) UNKNOWN Medication List - Last Reconciled 11/25/23 by Kody Pierre MD albuterol sulfate 90 mcg/actuation (Ventolin HFA) 2 puffs inhalation Q4-6H PRN hydroxyzine pamoate 25 mg PO QID PRN lorazepam 1 mg PO BID PRN naproxen (Naprosyn) 500 mg PO BID PRN zolpidem (Ambien) 5 mg PO BEDTIME PRN Tobacco use date assessed: 09/24/23 Fall risk assessment: No Falls in past year Last assessed Fall Risk: 11/25/23 Dental Screening Dental Screen Date: 09/24/23 HPI stomach issues HPI Details epigastric pain for a week; no nausea or vomiting PFSH Medical History Post-menopausal Screening for breast cancer Screening for diabetes mellitus Hypertension Surgical History History of tubal ligation History of tonsillectomy Family History Father Medical history unknown Mother Diabetes Social History Housing: Apartment Alcohol intake: former Year quit: 2019 Patient Tobacco Use Status: Current someday Tobacco user Tobacco use type: Cigarette Cigarettes Per Day: 8 e-Cigarette/Vaping Use: Never Used service: No Current occupational status: disabled Cognitive needs: No Hearing needs: No Vision needs: Yes Questionnaire Thrive Questionnaire Date Thrive assessed: 08/07/23 TUYET-7 AMB Questionnaire TUYET-7 Date TUYET - 7 assessed: 09/24/23 Source: Developed by Drs. Colby Johnson, Adrianna Becerra, Jorge Roper and colleagues, with an educational pilo from [employer]. Review of Systems Const Denies chills, Denies headache(s) and Denies weight loss ENT Denies headache(s) Card Denies chest pain, Denies syncope, Denies irregular heart rhythm and Denies dyspnea Resp Denies chest congestion, Denies cough and Denies dyspnea GI Denies change in stool character, Denies nausea and Denies vomiting Musc Denies deformity and Denies joint swelling Neuro Denies syncope and Denies headache(s) Physical exam (Primary Care) Vital Signs: Last Vital Signs Pulse 50 11/25/23 09:39 BP 140/72 H 11/25/23 09:39 Pulse Ox 98 11/25/23 09:39 Oxygen Delivery Method Room Air 11/25/23 09:39 BMI result Body Mass Index 26.3 Tobacco/Smoking Status: Tobacco use Status Tobacco use date assessed 09/24/23 11/25/23 09:45 Patient Tobacco Use Status Current someday Tobacco 11/25/23 09:45 Tobacco use type Cigarette 11/25/23 09:45 e-Cigarette/Vaping Use Never Used 11/25/23 09:45 Thrive Assessment: Date of Thrive Assessment Date Thrive assessed 08/07/23 11/25/23 09:45 Const General: cooperative, comfortable, no acute distress and alert Neck Neck: Yes no lymphadenopathy Thyroid: Thyroid normal Resp Effort & Inspection: normal respiratory effort Auscultation: clear to auscultation bilaterally Percussion: percussion normal Cardio Jugular venous distension: no JVD Palpation: normal PMI Rate: regular rate Rhythm: regular rhythm Heart sounds: S1 normal heart sound present and S2 normal heart sound present GI Inspection: Yes normal to inspection Palpation (GI): No hepatosplenomegaly present Skin General skin exam: no rashes or lesions noted Extrem General: Yes no clubbing, cyanosis or edema Assessment and Plan Assessment & Plan (1) Epigastric pain: Code(s): R10.13 - Epigastric pain Plan: US ordered Orders: Orders US abdomen complete Today R10.9 - Unspecified abdominal pain Coding Level of Care Code Est Pt Level 3 (56243) Diagnoses Epigastric pain R10.13
== END 2023-11-25 10:28 | disposition home or self-care (01) ==
PROVIDERS: PCP Internal Medicine; Visit Provider Internal Medicine
DX: R10.13 Epigastric pain (principal)
CPT/HCPCS: 99213

== ENCOUNTER 2023-12-02 08:41 | Outpatient (REF) | payer OTHER, SELFPAY ==
--- NOTE | ~2023-12-02 | US_ITS ---
EXAMINATION: US ABDOMEN COMPLETE CLINICAL INFORMATION: Unspecified abdominal pain COMPARISON: CT scan abdomen and pelvis 12/29/2006 TECHNIQUE: Real-time imaging of the abdominal viscera. FINDINGS: PANCREAS: Normal. ABDOMINAL AORTA: The proximal, mid, and distal segments are normal in caliber. Mild atherosclerotic plaque is seen in the mid and distal abdominal aorta INFERIOR VENA CAVA: Visualized portions are normal. LIVER: The liver is normal in size. The liver contour is normal. There is mild diffuse increased liver parenchymal echogenicity, consistent with mild hepatic steatosis. No focal hepatic lesion. There is no intrahepatic biliary duct dilatation seen. GALLBLADDER: Normal. The gallbladder is physiologically distended without evidence of stones, sludge, polyps, wall thickening or pericholecystic fluid. No sonographic Meek's sign. COMMON BILE DUCT: Normal in caliber measuring 0.4 cm in diameter. RIGHT KIDNEY: Normal. No hydronephrosis. No renal calculi or focal parenchymal lesions. The kidney measures 10.1 cm in maximum dimension. LEFT KIDNEY: Normal. No hydronephrosis. No renal calculi or focal parenchymal lesions. The kidney measures 10.9 cm in maximum dimension. SPLEEN: Normal. The spleen measures 8.8 cm in maximum dimension. FREE FLUID: None. US/US abdomen complete IMPRESSION: 1. Mild hepatic steatosis. 2. Mild atherosclerotic plaque is seen in the mid and distal abdominal aorta.
== END 2023-12-02 08:42 | disposition home or self-care (01) ==
LOC: HO.US 08:41
PROVIDERS: PCP Internal Medicine; Visit Provider Internal Medicine
DX: R10.9 Unspecified abdominal pain (principal)
CPT/HCPCS: 76700

== ENCOUNTER 2024-01-20 13:15 | Outpatient (AMB) | payer OTHER, SELFPAY ==
[2024-01-20 13:18] VITALS: BP 156/86; PULSE 81; O2SAT 96; BMI 26.1
--- NOTE | 2024-01-20 13:18 | A.OFFPC_ITS ---
Vital Signs 01/20/24 13:18 Height 5 ft 1 in Weight 138 lb BMI 26.1 BP 156/86 H Blood Pressure Location Lt brachial Position Sitting Pulse 81 Pulse Source Pulse Oximeter Pulse Oximetry (%) 96 Oxygen Delivery Method Room Air Intake Visit Reasons: In regaurds to my Lorazenpam percription Content Analyst: Not Required per policy Accompanied by: Self / Same As Patient Allergies Sulfa (Sulfonamide Antibiotics) [Sulfa (Sulfonamides)] Allergy (Mild, Verified 01/20/24 13:18) UNKNOWN Medication List - Last Reconciled 01/21/24 by Kody Pierre MD albuterol sulfate 90 mcg/actuation (Ventolin HFA) 2 puffs inhalation Q4-6H PRN hydroxyzine pamoate 25 mg PO QID PRN lorazepam 1 mg PO BID PRN naproxen (Naprosyn) 500 mg PO BID PRN zolpidem (Ambien) 5 mg PO BEDTIME PRN Tobacco use date assessed: 09/24/23 Fall risk assessment: No Falls in past year Last assessed Fall Risk: 01/20/24 Dental Screening Dental Screen Date: 09/24/23 HPI In regaurds to my Lorazenpam percription HPI Details f/u anxiety; doing well and compliant on regimen PFSH Medical History Post-menopausal Screening for breast cancer Screening for diabetes mellitus Hypertension Surgical History History of tubal ligation History of tonsillectomy Family History Father Medical history unknown Mother Diabetes Social History Housing: Apartment Alcohol intake: former Year quit: 2019 Patient Tobacco Use Status: Current someday Tobacco user Tobacco use type: Cigarette Cigarettes Per Day: 8 e-Cigarette/Vaping Use: Never Used service: No Current occupational status: disabled Cognitive needs: No Hearing needs: No Vision needs: Yes (glasses) Questionnaire Thrive Questionnaire Date Thrive assessed: 08/07/23 TUYET-7 AMB Questionnaire TUYET-7 Date TUYET - 7 assessed: 09/24/23 Source: Developed by Drs. Colby Johnson, Adrianna Becerra, Jorge Roper and colleagues, with an educational pilo from [employer]. Review of Systems Const Denies chills, Denies headache(s) and Denies weight loss ENT Denies headache(s) Card Denies chest pain, Denies syncope, Denies irregular heart rhythm and Denies dyspnea Resp Denies chest congestion, Denies cough and Denies dyspnea GI Denies abdominal pain, Denies change in stool character, Denies nausea and Denies vomiting Musc Denies deformity and Denies joint swelling Neuro Denies syncope and Denies headache(s) Physical exam (Primary Care) Vital Signs: Last Vital Signs Pulse 81 01/20/24 13:18 BP 156/86 H 01/20/24 13:18 Pulse Ox 96 01/20/24 13:18 Oxygen Delivery Method Room Air 01/20/24 13:18 BMI result Body Mass Index 26.1 Tobacco/Smoking Status: Tobacco use Status Tobacco use date assessed 09/24/23 01/20/24 13:19 Patient Tobacco Use Status Current someday Tobacco 01/20/24 13:19 Tobacco use type Cigarette 01/20/24 13:19 e-Cigarette/Vaping Use Never Used 01/20/24 13:19 Thrive Assessment: Date of Thrive Assessment Date Thrive assessed 08/07/23 01/20/24 13:19 Const General: cooperative, comfortable, no acute distress and alert Neck Neck: Yes no lymphadenopathy Thyroid: Thyroid normal Resp Effort & Inspection: normal respiratory effort Auscultation: clear to auscultation bilaterally Percussion: percussion normal Cardio Jugular venous distension: no JVD Palpation: normal PMI Rate: regular rate Rhythm: regular rhythm Heart sounds: S1 normal heart sound present and S2 normal heart sound present GI Inspection: Yes normal to inspection Palpation (GI): No hepatosplenomegaly present Skin General skin exam: no rashes or lesions noted Extrem General: Yes no clubbing, cyanosis or edema Assessment and Plan Assessment & Plan (1) Anxiety: Code(s): F41.9 - Anxiety disorder, unspecified Plan: stable; same rx Orders: Orders T Spot TB 01/20/24 Z11.1 - Encounter for screening for respiratory tuberculosis Coding Level of Care Code Est Pt Level 3 (00891) Diagnoses Anxiety F41.9
== END 2024-01-20 13:38 | disposition home or self-care (01) ==
PROVIDERS: PCP Internal Medicine; Visit Provider Internal Medicine
DX: F41.9 Anxiety disorder, unspecified (principal)
CPT/HCPCS: 99213

== ENCOUNTER 2024-01-20 13:49 | Outpatient (REF) | payer OTHER, SELFPAY ==
[2024-01-23 01:53] LABS: TS Negative Control Passed; TS Panel A 0; TS Panel B 0; TS Positive Control Passed; TSpotTB Negative (Negative)
== END 2024-01-20 13:50 | disposition home or self-care (01) ==
LOC: HO.LAB 13:49
PROVIDERS: PCP Internal Medicine; Visit Provider Internal Medicine
DX: Z11.1 Encounter for screening for respiratory tuberculosis (principal)
CPT/HCPCS: 36415; 86481

== ENCOUNTER 2024-07-10 12:37 | Outpatient (AMB) | payer OTHER, SELFPAY ==
--- NOTE | 2024-07-10 12:39 | A.OFFPC_ITS ---
Vital Signs 07/10/24 12:41 Height 51 ft Weight 139 lb 6 oz BMI 0.3 BP 150/80 H Blood Pressure Location Lt brachial Position Sitting Pulse 82 Pulse Source Pulse Oximeter Pulse Oximetry (%) 97 Oxygen Delivery Method Room Air Intake Visit Reasons: 1 Year F/U Intake Note: Patient is here to follow up on Asthma, OA, HTN. 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 Dental Service Chief: Present Accompanied by: Nephew or Niece Allergies Sulfa (Sulfonamide Antibiotics) [Sulfa (Sulfonamides)] Allergy (Mild, Verified 07/10/24 12:40) UNKNOWN Medication List - Last Reconciled 07/13/24 by Kody Pierre MD albuterol sulfate 90 mcg/actuation (Ventolin HFA) 2 puffs inhalation Q4-6H PRN lorazepam 1 mg PO BID PRN naproxen (Naprosyn) 500 mg PO BID PRN Tobacco use date assessed: 07/10/24 Fall risk assessment: No Falls in past year Last assessed Fall Risk: 07/10/24 Dental Screening Dental Screen Date: 09/24/23 HPI 1 Year F/U HPI Details anxiety on rx; doing well and complint PFSH Medical History Post-menopausal Screening for breast cancer Screening for diabetes mellitus Hypertension Surgical History History of tubal ligation History of tonsillectomy Family History (Updated 07/10/24 @ 12:39 by ELISE Mon) Father Medical history unknown Mother Diabetes Social History Housing: Apartment Alcohol intake: former Year quit: 2019 Patient Tobacco Use Status: Current someday Tobacco user Tobacco use type: Cigarette Cigarette Packs Per Day: 0.5 Cigarettes Per Day: 8 e-Cigarette/Vaping Use: Never Used Second Hand Smoke Exposure: Yes service: No Current occupational status: disabled Cognitive needs: No Hearing needs: No Vision needs: Yes (glasses) Questionnaire Thrive Questionnaire Date Thrive assessed: 08/07/23 AUDIT C Alcohol Use Questionnaire (AUDIT-C) 2. How many drinks containing alcohol do you have on a typical day when you are drinking?: 1 or 2 3. How often do you have six or more drinks on one occasion?: Never Total Score: 0 TUYET-7 AMB Questionnaire TUYET-7 Date TUYET - 7 assessed: 09/24/23 Source: Developed by Drs. Colby Johnson, Adrianna Becerra, Jorge Roper and colleagues, with an educational pilo from [employer]. Review of Systems Const Denies chills, Denies headache(s) and Denies weight loss ENT Denies headache(s) Card Denies chest pain, Denies syncope, Denies irregular heart rhythm and Denies dyspnea Resp Denies chest congestion, Denies cough and Denies dyspnea GI Denies abdominal pain, Denies change in stool character, Denies nausea and Denies vomiting Musc Denies deformity and Denies joint swelling Neuro Denies syncope and Denies headache(s) Physical exam (Primary Care) Vital Signs: Last Vital Signs Pulse 82 07/10/24 12:41 BP 150/80 H 07/10/24 12:41 Pulse Ox 97 07/10/24 12:41 Oxygen Delivery Method Room Air 07/10/24 12:41 BMI result Body Mass Index 0.3 Tobacco/Smoking Status: Tobacco use Status Tobacco use date assessed 07/10/24 07/10/24 12:46 Patient Tobacco Use Status Current someday Tobacco 07/10/24 12:39 Tobacco use type Cigarette 07/10/24 12:39 e-Cigarette/Vaping Use Never Used 07/10/24 12:39 Thrive Assessment: Date of Thrive Assessment Date Thrive assessed 08/07/23 07/10/24 12:39 Const General: cooperative, comfortable, no acute distress and alert Neck Neck: Yes no lymphadenopathy Thyroid: Thyroid normal Resp Effort & Inspection: normal respiratory effort Auscultation: clear to auscultation bilaterally Percussion: percussion normal Cardio Jugular venous distension: no JVD Palpation: normal PMI Rate: regular rate Rhythm: regular rhythm Heart sounds: S1 normal heart sound present and S2 normal heart sound present GI Inspection: Yes normal to inspection Palpation (GI): No hepatosplenomegaly present Skin General skin exam: no rashes or lesions noted Extrem General: Yes no clubbing, cyanosis or edema Coding Level of Care Code Est Pt Level 3 (54554) Diagnoses Anxiety F41.9 Assessment & Plan Assessment & Plan (1) Anxiety: Code(s): F41.9 - Anxiety disorder, unspecified Category: Medical Plan: stable; same rx Orders: Orders Comprehensive [place]. Panel Fast 07/10/24 Z13.9 - Encounter for screening, unspecified Complete Blood Count Auto Diff 07/10/24 Z13.0 - Encounter for screening for diseases of the blood and blood-forming organs and certain disorders involving the immune mechanism Lipid Panel 07/10/24 Z13.220 - Encounter for screening for lipoid disorders Thyroid Stimulating Hormone 07/10/24 Z13.29 - Encounter for screening for other suspected endocrine disorder
[2024-07-10 12:41] VITALS: BP 150/80; PULSE 82; O2SAT 97
== END 2024-07-10 13:02 | disposition home or self-care (01) ==
PROVIDERS: PCP Internal Medicine; Visit Provider Internal Medicine
DX: F41.9 Anxiety disorder, unspecified (principal)

== ENCOUNTER → 2024-07-10 12:37 | Outpatient (BNVA) | payer OTHER, SELFPAY | PROVIDERS: PCP Internal Medicine; Visit Provider Internal Medicine | DX: F41.9 Anxiety disorder, unspecified (principal) | CPT/HCPCS: 99212 ==

== ENCOUNTER 2024-08-14 07:41 | Outpatient (REF) | payer OTHER, SELFPAY ==
[2024-08-14 07:52] LABS: MANUAL DIFF FLAG NO
[2024-08-14 08:33] LABS: Basophils Absolute Auto 0.1 X10*3/uL (0.0-0.2); Basophils Percent Auto 0.8 % (0-2); Eosinophils Absolute Auto 0.4 X10*3/uL (0.0-0.4); Eosinophils Percent Auto 4.7 % (0-4); Imm Gran Abs Auto 0.02 X10*3/uL (0.00-0.03); Imm Gran Pct Auto 0.2 % (0.0-0.4); Lymphocytes Absolute Auto 2.4 X10*3/uL (1.2-4.9); Lymphocytes Percent Auto 29.2 % (20-40); Mean Corpuscular Hemoglobin 30.4 pg (27.0-33.0); Mean Corpuscular Volume 89.4 fL (80.0-98.0); Mean Platelet Volume 9.2 fL (9.4-12.3); Monocytes Absolute Auto 0.7 X10*3/uL (0.1-1.2); Monocytes Percent Auto 8.4 % (2-11); Neutrophils Absolute Auto 4.7 x10*3/uL (2.0-8.3); Neutrophils Percent Auto 56.7 % (45-73); Platelet Count 253 X10*3/uL (160-400); Red Blood Count 5.26 X10*6/uL (4.20-5.50); Red Cell Distribution Width 12.6 % (11.0-16.0); White Blood Count 8.3 X10*3/uL (4.8-10.8)
[2024-08-14 09:35] LABS: Alanine Aminotransferase 15 U/L (0-31); Albumin Level 3.9 g/dL (3.5-5.0); Alkaline Phosphatase 82 U/L (39-117); Anion Gap 13 (12-20); Aspartate Amino Transferase 24 U/L (5-31); Bilirubin Total 0.3 mg/dL (0.0-1.0); Blood Urea Nitrogen 26 mg/dL (9-16); Calcium 9.3 mg/dL (8.4-10.2); Carbon Dioxide 28 mmol/L (22-29); Chloride 108 mmol/L (96-108); Cholesterol 241 mg/dL (<200); Estimated Glomerular Filt Rate > 60; Glucose Fasting 143 mg/dL (60-99); HDL Cholesterol 55 mg/dL (>40); LDL Cholesterol Calculated 161 mg/dL (<100); Potassium 4.6 mmol/L (3.3-5.1); Sodium 144 mmol/L (135-145); Total Protein 6.9 g/dL (6.5-8.0); Triglycerides 128 mg/dL (<150)
[2024-08-14 09:52] LABS: Thyroid Stimulating Hormone 3.29 uIU/mL (0.32-4.0)
== END 2024-08-14 07:42 | disposition home or self-care (01) ==
LOC: HO.LAB 07:41
PROVIDERS: PCP Internal Medicine; Visit Provider Internal Medicine
DX: Z13.29 Encounter for screening for other suspected endocrine disorder (principal); Z13.9 Encounter for screening, unspecified; Z13.0 Encounter for screening for diseases of the blood and blood-forming organs and certain disorders involving the immune mechanism; Z13.220 Encounter for screening for lipoid disorders
CPT/HCPCS: 36415; 80053; 80061; 84443; 85025

== ENCOUNTER 2024-08-16 10:40 | Emergency (ER) | payer OTHER, SELFPAY ==
--- NOTE | ~2024-08-16 | XR_ITS ---
CLINICAL HISTORY: pain 3 views lumbar spine Comparison: None Findings: Normal alignment. No acute fractures or dislocation. There is multiple level degenerative disc and facet change. There is aortic calcification. IMPRESSION: No acute findings. This document has been electronically signed by: El Moser MD on 08/16/2024 11:55:35
[2024-08-16 10:51] VITALS: BP 140/72; PULSE 73; RESP 18; TEMP 36; O2SAT 94; BMI 25.8
--- NOTE | 2024-08-16 11:11 | ED_ITS ---
HPI - Back Pain/Injury General Chief Complaint: Back Pain/Injury Stated Complaint: Back pain Time Seen by Provider: 08/16/24 14:10 Related Data Previous Rx's ?Medication ?Instructions ?Recorded albuterol sulfate 90 mcg/actuation 2 puff inhalation Q4-6H PRN 05/22/23 aerosol inhaler (Ventolin HFA) bronchospasm #8.5 grams naproxen 500 mg tablet (Naprosyn) 500 mg PO BID PRN pain #60 tabs 03/02/24 lorazepam 1 mg tablet 1 mg PO BID PRN anxiety #60 tabs 06/26/24 oxycodone 5 mg tablet 5 mg PO Q6H PRN pain #15 tabs 08/16/24 Allergies Allergy/AdvReac Type Severity Reaction Status Date / Time Sulfa (Sulfonamide Allergy Mild UNKNOWN Verified 08/16/24 10:54 Antibiotics) [Sulfa (Sulfonamides)] [facility] Past Medical History Medical History Post-menopausal Screening for breast cancer Screening for diabetes mellitus Hypertension Surgical History History of tubal ligation History of tonsillectomy Family History Family History (Updated 07/10/24 @ 12:39 by ELISE Mon) Father Medical history unknown Mother Diabetes Social History Social History Housing: Apartment Alcohol intake: former Year quit: 2019 Patient Tobacco Use Status: Current someday Tobacco user Tobacco use type: Cigarette Cigarette Packs Per Day: 0.5 Cigarettes Per Day: 8 Smoked in Last 30 Days: Yes e-Cigarette/Vaping Use: Never Used Second Hand Smoke Exposure: Yes Advance Directives: No Advance Directives Information Provided: No Do you have a plan to hurt others: No Plan service: No Current occupational status: disabled Cognitive needs: No Hearing needs: No Vision needs: Yes (glasses) Physical Exam Vital Signs: Vital Signs: Last Vital Signs Temp 97.5 F 08/16/24 14:39 Pulse 79 08/16/24 14:39 Resp 20 08/16/24 14:39 BP 130/87 08/16/24 14:39 Pulse Ox 94 08/16/24 14:39 O2 Del Method Room Air 08/16/24 14:39 BMI result Body Mass Index 25.8 Course Course Course Narrative: This is an RME performed by Josué Campbell CNP: Additional HPI, ROS, PE not included below will be deferred to primary provider. Patient is a 69-year-old female who presents emergency department for evaluation was cleaning at home when she felt sudden onset of pain and pulling to the lower back unrelieved by Motrin Plan: XR, offered acetaminophen but declined Reevaluation(s) Reevaluation #1: See additional note dated 08/16/2024 Discharge Plan Discharge Clinical Impression: Acute lumbar myofascial strain Qualifiers: Encounter type: initial encounter Qualified Code(s): S39.012A - Strain of muscle, fascia and tendon of lower back, initial encounter Patient Disposition: Home, Self-Care Instructions: Acute Low Back Pain (ED) Additional Instructions: Follow-up with your primary care physician return to the emergency room if you worse any concern Prescriptions: New oxycodone 5 mg tablet 5 mg PO Q6H PRN (Reason: pain) Qty: 15 0RF Rx Instructions: partial filing upon pt request; Partial Fill upon patient request. No Action albuterol sulfate [Ventolin HFA] 90 mcg/actuation HFA aerosol inhaler 2 puff inhalation Q4-6H PRN (Reason: bronchospasm) Qty: 8.5 8RF naproxen [Naprosyn] 500 mg tablet 500 mg PO BID PRN (Reason: pain) Qty: 60 5RF lorazepam 1 mg tablet 1 mg PO BID PRN (Reason: anxiety) Qty: 60 4RF Referrals: Kody Pierre MD [Primary Care Provider] - 2 days Interventions: ED Discharge Assessment Last Done: 08/16/24 14:39 Discharge Date/Time: 08/16/24 14:47 Print Language: Indonesian
--- NOTE | 2024-08-16 14:16 | ED_ITS ---
HPI - Back Pain/Injury General Chief Complaint: Back Pain/Injury Stated Complaint: Back pain Time Seen by Provider: 08/16/24 14:10 Source: patient Mode of arrival: ambulatory Limitations: no limitations History of Present Illness HPI Narrative: This is a 69 years old the patient with a history of cerebral palsy presented ambulatory to the emergency department complaining of lower back pain. She states she was cleaning a ceiling fan reaching up and felt pain in the lower back. She did not know fall. She took 800 mg of Motrin a she is not better. Patient is not anticoagulated she has also history of diabetes and hypertension and anxiety. She has no pain in the upper or lower extremity. MD elicited complaint: back pain Onset (ago): hour(s) (2) Timing: constant Severity: mild Quality: burning and sharp Location: lumbar spine Exacerbating factors: movement Relieving factors: none Context: other (While reaching up cleaning the ceiling fan) Associated symptoms: denies other symptoms Related Data Previous Rx's ?Medication ?Instructions ?Recorded albuterol sulfate 90 mcg/actuation 2 puff inhalation Q4-6H PRN 05/22/23 aerosol inhaler (Ventolin HFA) bronchospasm #8.5 grams naproxen 500 mg tablet (Naprosyn) 500 mg PO BID PRN pain #60 tabs 03/02/24 lorazepam 1 mg tablet 1 mg PO BID PRN anxiety #60 tabs 06/26/24 oxycodone 5 mg tablet 5 mg PO Q6H PRN pain #15 tabs 08/16/24 Allergies Allergy/AdvReac Type Severity Reaction Status Date / Time Sulfa (Sulfonamide Allergy Mild UNKNOWN Verified 08/16/24 10:54 Antibiotics) [Sulfa (Sulfonamides)] Review of Systems Constitutional: Constitutional: Reports no additional constitutional complaints Cardiovascular: Cardiovascular: Reports no additional cardiovascular complaints [facility] Past Medical History Medical History Post-menopausal Screening for breast cancer Screening for diabetes mellitus Hypertension Surgical History History of tubal ligation History of tonsillectomy Family History Family History (Updated 07/10/24 @ 12:39 by ELISE Mon) Father Medical history unknown Mother Diabetes Social History Social History Housing: Apartment Alcohol intake: former Year quit: 2019 Patient Tobacco Use Status: Current someday Tobacco user Tobacco use type: Cigarette Cigarette Packs Per Day: 0.5 Cigarettes Per Day: 8 Smoked in Last 30 Days: Yes e-Cigarette/Vaping Use: Never Used Second Hand Smoke Exposure: Yes Advance Directives: No Advance Directives Information Provided: No Do you have a plan to hurt others: No Plan service: No Current occupational status: disabled Cognitive needs: No Hearing needs: No Vision needs: Yes (glasses) Physical Exam Vital Signs: Vital Signs: Last Vital Signs Temp 97.5 F 08/16/24 14:39 Pulse 79 08/16/24 14:39 Resp 20 08/16/24 14:39 BP 130/87 08/16/24 14:39 Pulse Ox 94 08/16/24 14:39 O2 Del Method Room Air 08/16/24 14:39 BMI result Body Mass Index 25.8 She looks well she is not toxic she looks comfortable sitting in the stretcher Const: General: cooperative, comfortable and no acute distress Nutritional Appearance: average body habitus Orientation/consciousness: patient oriented x3 HEENT: Head: Yes normal to inspection Face and sinus: Yes normal facial exam Neck: Neck: Yes normal visual inspection and Yes full ROM Chest: Chest palpation & inspection: normal inspection of the chest Resp: Effort & Inspection: normal respiratory effort Auscultation: clear to auscultation bilaterally Cardio: Jugular venous distension: no JVD Rate: regular rate Rhythm: regular rhythm GI: Inspection: Yes normal to inspection Palpation (GI): Soft to palpation, not firm and nontender Back/Spine/Pelvis: Other: Tenderness in the lower back. Normal strength in the lower extremity no sensation deficits no sensation deficits Neuro: General: patient oriented x3 Medical Decision Making Medical Decision Making MDM Narrative: Patient presented with lower back pain after she was reaching out clearing of the ceiling fan. Most likely muscle strain. I do not think we need to do a CT scan, I do not think she needs any blood work either. I will discharge her home on oxycodone Differential Diagnosis Differential Diagnoses: The differential diagnosis associated with the presentation includes Muscular strain /lumbarl spine fracture Admission/Observation Consideration of admission/observation: Escalation of care including admission/observation considered Independent Interpretation I performed an independent interpretation of an: Plain X-Ray Interpretation: X-ray was reviewed by me interpreted by me as no acute fracture Radiology Impression Discussion of test interpretation with radiology: I have reviewed the radi ologist's reading. Radiologist Impression: I have reviewed the radiology reading Independent Historian Clinical information obtained from an independent historian. History obtained from or confirmed by: Spouse Chronic Conditions cerebral palsy Discharge Plan Discharge Clinical Impression: Acute lumbar myofascial strain Qualifiers: Encounter type: initial encounter Qualified Code(s): S39.012A - Strain of muscle, fascia and tendon of lower back, initial encounter Patient Disposition: Home, Self-Care Instructions: Acute Low Back Pain (ED) Additional Instructions: Follow-up with your primary care physician return to the emergency room if you worse any concern Prescriptions: New oxycodone 5 mg tablet 5 mg PO Q6H PRN (Reason: pain) Qty: 15 0RF Rx Instructions: partial filing upon pt request; Partial Fill upon patient request. No Action albuterol sulfate [Ventolin HFA] 90 mcg/actuation HFA aerosol inhaler 2 puff inhalation Q4-6H PRN (Reason: bronchospasm) Qty: 8.5 8RF naproxen [Naprosyn] 500 mg tablet 500 mg PO BID PRN (Reason: pain) Qty: 60 5RF lorazepam 1 mg tablet 1 mg PO BID PRN (Reason: anxiety) Qty: 60 4RF Referrals: Kody Pierre MD [Primary Care Provider] - 2 days Interventions: ED Discharge Assessment Last Done: 08/16/24 14:39 Discharge Date/Time: 08/16/24 14:47 Print Language: Hungarian
[2024-08-16 14:37] VITALS: BP 130/87; PULSE 79; RESP 20; TEMP 36.4; O2SAT 94
[2024-08-16 14:39] VITALS: BP 130/87; PULSE 79; RESP 20; TEMP 36.4; O2SAT 94
== END 2024-08-16 14:47 | disposition home or self-care (01) ==
PROVIDERS: Emergency Provider Emergency Medicine; PCP Internal Medicine
DX: S39.012A Strain of muscle, fascia and tendon of lower back, initial encounter (principal); X50.1XXA Overexertion from prolonged static or awkward postures, initial encounter; Y93.9 Activity, unspecified; Y92.098 Other place in other non-institutional residence as the place of occurrence of the external cause; Y99.8 Other external cause status; F17.210 Nicotine dependence, cigarettes, uncomplicated
CPT/HCPCS: 72100; 99284

== ENCOUNTER → 2024-08-16 11:11 | Outpatient (BNV) | payer OTHER, SELFPAY | PROVIDERS: PCP Internal Medicine; Visit Provider Specialist | DX: R52 Pain, unspecified (principal) | CPT/HCPCS: 72100 ==

== ENCOUNTER 2024-08-21 08:31 | Outpatient (REF) | payer OTHER, SELFPAY ==
[2024-08-21 09:06] LABS: Estimated Average Glucose 148 mg/dL; Hemoglobin A1C 213.0804 umol/L; Hemoglobin A1c % 6.8 % (<6.0); Total Hemoglobin (HGBA1C) 4172.7535 umol/L
[2024-08-21 09:40] LABS: Magnesium 1.9 mg/dL (1.6-2.6)
[2024-08-21 10:00] LABS: Vitamin D 25-OH Total 26.3 ng/mL (>30)
[2024-08-21 10:06] LABS: Folate 12.4 ng/mL (> or = 4.0); Vitamin B12 463 pg/mL (200-900)
== END 2024-08-21 08:32 | disposition home or self-care (01) ==
LOC: HO.LAB 08:31
PROVIDERS: PCP Internal Medicine; Visit Provider Physician Assistant Medical
DX: Z09 Encounter for follow-up examination after completed treatment for conditions other than malignant neoplasm (principal); R73.09 Other abnormal glucose
CPT/HCPCS: 36415; 82306; 82607; 82746; 83036; 83735

== ENCOUNTER 2024-08-26 11:07 | Outpatient (REF) | payer OTHER, SELFPAY ==
--- OUTSIDE RECORDS SUMMARY | 2024-08-26 12:43 | XMS_ITS | Clinical Summary ---
Author Organization [facility] Address [address] [place] [address] Care Team Providers Care Foam Machine Operator Name Role Phone Kody Pierre MD Primary Care Provider [phone] Allergies Active Allergy Reactions Criticality Noted Date Comments Sulfa (Sulfonamide Antibiotics) 05/24/2020 No reaction documented. Medications Medication Sig Dispensed Refills Start Date End Date Status naproxen (NAPROSYN) 500 mg tablet TAKE ONE TABLET BY MOUTH TWICE A DAY NEEDED FOR PAIN 09/04/2022 Active LORazepam (ATIVAN) 1 mg tablet TAKE ONE TABLET BY MOUTH TWICE A DAY NEEDED FOR ANXIETY 07/06/2021 Active eszopiclone (LUNESTA) 2 mg tablet TAKE ONE TABLET BY MOUTH AT BEDTIME 06/07/2021 Active albuterol 2.5 mg /3 mL (0.083 %) nebulizer solution Take 1 Vial by nebulization every 4 hours as needed. Active traZODone (DESYREL) 50 mg tablet Take 50 mg by mouth at bedtime. Active albuterol HFA (PROAIR HFA ; PROVENTIL HFA ; VENTOLIN HFA) 90 mcg/actuation inhaler Inhale 2 Puffs into the lungs every 4 hours as needed. Active zolpidem (AMBIEN) 5 mg tablet Take by mouth at bedtime as needed. Active urea 45 % gel Apply 1 Applicator topically 2 times daily. Apply to nails twice a day 05/24/2020 Active ciclopirox (PENLAC) 8 % solution Apply to nail once a day 05/24/2020 Active Active Problems Problem Noted Date Diagnosed Date Anxiety and depression 07/21/2020 Cerebral palsy 07/21/2020 Overview (08/04/2024): infantile HTN (hypertension) 07/21/2020 Hyperlipidemia 07/21/2020 Insomnia 07/21/2020 Type 2 diabetes mellitus 07/21/2020 Immunizations Name Administration Dates Next Due Influenza trivalent, with pr eservative (Fluzone; Afluria) 6mo and older 04/17/2019 Pneumococcal polysaccharide 23 valent (Pneumovax 23) 2yo and older 07/16/2012 Tdap Tetanus diptheria acell ular pertussis (Boostrix; Adacel) 7yo and older 06/13/2011,01/26/2009 Zoster Live 07/10/2016 Surgical History Surgery Date Site/Laterality Comments TONSILLECTOMY PROCEDURE: HISTORICAL TONSILLECTOMY TUBAL LIGATION PROCEDURE: HISTORICAL TUBAL LIGATION Medical History Medical History Date Comments Diabetes ([facility]) DX:Diabetes ( [facility]) Type 2 diabetes mellitus ([facility]) 07/21/2020 DX:Type 2 diabetes mellitus ([facility]) Cerebral palsy ([facility]) 07/21/2020 DX:Cere bral palsy ([facility]); COMMENT: infantile Insomnia 07/21/2020 DX:Insomnia Anxiety and depression 07/21/2020 DX:Anxiet y and depression HTN (hypertension) 07/21/2020 DX:HTN (hyper tension) Hypercholesterolemia 07/21/2020 DX:Hypercho lesterolemia Tobacco use 07/21/2020 DX:Tobacco use Hyperlipidemia 07/21/2020 DX:Hyperlipidemi a Family History Medical History Relation Name Comments Diabetes Mother at 83 Lung cancer Other sibling, not sp ecified. Relation Name Status Comments Mother Other Social History Tobacco Use Types Packs/Day Years Used Date Smoking Tobacco: Every Day Smokeless Tobacco: Never Alcohol Use Standard Drinks/Week Comments No 0 (1 standard drink = 0.6 oz pur e alcohol) Sex and Gender Information Value Date Recorded Sex Assigned at Not on file Gender Identity Not on file Sexual Orientation Not on file Obstetrics History Last Filed Vital Signs Vital Sign Reading Time Taken Comments Blood Pressure - - Pulse - - Temperature - - Respiratory Rate - - Oxygen Saturation - - Inhaled Oxygen Concentration - - Weight 65.3 kg (144 lb) 03/11/2023 1:43 PM EDT Height 154.9 cm (5' 1 ) 11/13/2022 1:29 PM EDT Body Mass Index 27.21 11/13/2022 1:29 PM EDT Plan of Treatment Upcoming Encounters Date Type Department Care Team ([facility] st Contact Info) Description 09/22/2024 2:45 PM EST Office Visit Orthopedic Surgery - [place] [address] [facility] [address] [place] [id number] Helder Coulter, DPM [address] [place] [address] Health Maintenance Due Date Last Done Comments Breast Cancer Screening 1955 Diabetes: Annual GFR (Glomerular Filtration Rate) 1956 Diabetes: Annual Foot Exam 02/25/1966 Diabetes: Annual Retina Eye Exam 02/25/1966 Pneumococcal Vaccine: 65+ Years (2 of 2 - PCV) 07/16/2013 07/16/2012 Zoster Vaccines (2 of 3) 09/04/2016 07/10/2016 DTaP,Tdap,and Td Vaccines (3 - Td or Tdap) 06/13/2021 06/13/2011, 01/26/2009 Cholesterol Screening (Lipid Panel) 07/14/2022 Colorectal Cancer Screening: Colonoscopy 07/14/2022 Depression Screening 07/14/2022 Falls Risk Assessment 07/14/2022 Hepatitis C Screening 07/14/2022 Osteoporosis Screening (Bone Density Screening) 07/14/2022 Social Influencers of Health Screening 07/14/2022 Diabetes: Annual Urine Albumin-Creatinine Ratio (uACR) 07/15/2022 Diabetes: Blood Sugar Contro l Test (HGBA1C) 07/15/2022 Hypertension/CHF/CAD Annual BMP Blood Test 07/21/2022 COVID-19 Vaccine (2023-2 5 season) 2024 Influenza Vaccine (#1) 2024 04/17/2019 RSV Immunization Patients 60 + Years Old (1 - 1-dose 75+ series) 02/25/2031 HIB Vaccines Aged Out No longer eligi ble based on patient's age to complete this topic HPV Vaccines Aged Out No longer eligi ble based on patient's age to complete this topic Hepatitis A Vaccines Aged Out No long er eligible based on patient's age to complete this topic Hepatitis B Vaccines Aged Out No long er eligible based on patient's age to complete this topic IPV Vaccines Aged Out No longer eligi ble based on patient's age to complete this topic MMR Vaccines Aged Out No longer eligi ble based on patient's age to complete this topic Meningococcal ACWY Vaccine Aged Out N o longer eligible based on patient's age to complete this topic RSV Immunization Patients Under 20 months Aged Out No longer eligible b ased on patient's age to complete this topic Varicella Vaccines Aged Out No longer eligible based on patient's age to complete this topic Care Teams Foam Machine Operator Relationship Specialty Start Date End Date Kody Pierre MD [address] [place] [address] [address] [place] [address] PCP - General Internal Medicine 05/05/20
--- OUTSIDE RECORDS SUMMARY | 2024-08-26 12:44 | XMS_ITS | Clinical Summary ---
Author Organization [employer] Address [address] [place] [address] Care Team Providers Care Factory Focus Technician Name Role Phone Unavailable Primary Care Provider Unavailabl e Immunizations Name Administration Dates Next Due Pfizer Covid-19 Vaccine 12+ 05/02/2023 Social History Tobacco Use Types Packs/Day Years Used Date Smoking Tobacco: Never Assessed Comments Unknown Sex and Gender Information Value Date Recorded Sex Assigned at Female 05/02/2023 10:09 AM EDT Legal Sex Female 10:07 AM EDT Gender Identity Female 05/02/2023 10:09 AM EDT Sexual Orientation Straight 05/02/2023 10 :09 AM EDT Plan of Treatment Health Maintenance Due Date Last Done Comments CT Colonography 1955 Colonoscopy 1956 Dental Oral Exam 1956 Dental Prophylaxis 1955 Dental X-Ray: Bitewings 1956 Dental X-Ray: Full Mouth 1956 Depression Screening 1956 FIT 1956 FOBT 1955 SDOH Screening 1955 Sigmoidoscopy 1956 Alcohol/Substance Use Screening 1968 Tobacco Screening 1968 Hepatitis C Screening 02/25/1974 Mammogram 1996 Zoster Vaccines (2 of 3) 09/04/2016 07/10/2016 Pneumococcal Vaccine: 65+ Years (3 of 3 - PPSV23 or PCV20) 08/15/2021 08/15/2016, 07/16/2012 COVID-19 Vaccine ( season) 2024 05/02/2023, 06/17/2022, 03/30/2022, Additional history exists Influenza Vaccine (#1) 2024 , 04/24/2022, 04/17/2021, Additional history exists Colorectal Cancer Screening 04/21/2024 FIT DNA/Cologuard 04/21/2024 04/21/2021 RSV Patients and Patients Aged 60 years or older (1 - 1-dose 75+ series) 02/25/2031 DTaP/Tdap/Td Vaccines (4 - Td or Tdap) 04/24/2032 04/24/2022, 06/13/2011, 01/26/2009 HIB Vaccines Aged Out No longer eligi [...] patient's age to complete this topic Meningococcal Vaccine Aged Out No natalie diana eligible based on patient's age to complete this topic RSV under 20 months Aged Out No longe r eligible based on patient's age to complete this topic Rotavirus Vaccines Aged Out No longer eligible based on patient's age to complete [place] [id number] [facility]
== END 2024-08-26 11:08 | disposition home or self-care (01) ==
LOC: HO.MAMMO 11:07
PROVIDERS: PCP Internal Medicine; Visit Provider Internal Medicine
DX: Z12.31 Encounter for screening mammogram for malignant neoplasm of breast (principal)
CPT/HCPCS: 77063; 77067

== ENCOUNTER → 2024-08-26 11:30 | Outpatient (BNV) | payer OTHER, SELFPAY | PROVIDERS: PCP Internal Medicine; Visit Provider Internal Medicine | DX: Z12.31 Encounter for screening mammogram for malignant neoplasm of breast (principal) | CPT/HCPCS: 77063; 77067 ==

== ENCOUNTER 2024-10-15 11:00 | Outpatient (AMB) | payer OTHER, SELFPAY ==
--- NOTE | 2024-10-15 11:19 | MHC.PC.OV ---
Vital Signs 10/15/24 11:22 Height 5 ft 2 in Weight 133 lb BMI 24.3 BP 110/66 Blood Pressure Location Lt brachial Position Sitting Pulse 82 Pulse Source Pulse Oximeter Temp 97.1 F Temp Source Temporal Artery Scan Pulse Oximetry (%) 97 Oxygen Delivery Method Room Air Intake Visit Reasons: Discuss sugars Intake Note: Patient is here to follow up on DM. Medical Insurance Claims Specialist Required: No Fur Dressing Supervisor: Present Accompanied by: Great Niece Is last menstrual period known: No Allergies Sulfa (Sulfonamide Antibiotics) [Sulfa (Sulfonamides)] Allergy (Mild, Verified 10/15/24 12:38) UNKNOWN Medication List - Last Reconciled 10/15/24 by Adry Ann PA-C albuterol sulfate 90 mcg/actuation (Ventolin HFA) 2 puffs inhalation Q4-6H PRN atorvastatin 10 mg PO BEDTIME blood-glucose meter,continuous (FreeStyle Rah 3 Alma) As directed blood-glucose sensor (FreeStyle Rah 3 Plus Sensor device) As directed cholecalciferol (vitamin D3) 1,250 mcg PO QWEEK 3 months docusate sodium (Colace) 100 mg PO BID lorazepam 1 mg PO BID PRN metformin 500 mg PO BID naproxen (Naprosyn) 500 mg PO BID PRN polyethylene glycol 3350 (Miralax) 17 grams PO BID Tobacco use date assessed: 10/15/24 Fall risk assessment: No Falls in past year Last assessed Fall Risk: 10/15/24 Dental Screening Dental Screen Date: 10/15/24 Did you have a dental visit in the last 12 months?: No Did you have a dental problem in the last 6 months where you did not have access to dental care?: No Was dental information given to patient?: No [facility] Medical History (Updated 10/15/24 @ 13:04 by Adry Ann PA-C) Hyperlipidemia Mild hypercholesterolemia Exposure to hepatitis C Post-menopausal Screening for breast cancer Screening for diabetes mellitus Hypertension Surgical History History of tubal ligation History of tonsillectomy Family History Father Medical history unknown Mother Diabetes Social History Housing: Apartment Alcohol intake: former Year quit: 2019 Patient Tobacco Use Status: Current someday Tobacco user Tobacco use type: Cigarette Cigarette Packs Per Day: 0.5 Cigarettes Per Day: 10 e-Cigarette/Vaping Use: Never Used Second Hand Smoke Exposure: Yes service: No Current occupational status: disabled Cognitive needs: No Hearing needs: No Vision needs: Yes (glasses) Questionnaire PHQ-9 Over the last 2 weeks, how often have you been bothered by any of the following problems? 1. Little interest or pleasure in doing things: not at all 2. Feeling down, depressed, or hopeless: not at all 3. Trouble falling or staying asleep, or sleeping too much: not at all 4. Feeling tired or having little energy: not at all 5. Poor appetite or overeating: not at all 6. Feeling bad about yourself - or that you are a failure or have let yourself or your family down: not at all 7. Trouble concentrating on things, such as reading the newspaper or watching television: not at all 8. Moving or speaking so slowly that other people could have noticed. Or the opposite - being so fidgety or restless that you have been moving around a lot more than usual: not at all 9. Thoughts that you would be better off or of hurting yourself in some way: not at all Total score: 0 Depression Screening Interpretation: Negative Depression Screening Done: Yes 21012 - PHQ-9 Billing: Yes Source: Developed by Drs. Colby Johnson, Adrianna Becerra, Jorge Roper and colleagues, with an educational pilo from [employer]. Thrive Questionnaire Date Thrive assessed: 10/15/24 I am a: Patient What is your living situation today?: I have a steady place to live Within the past 12 months, did the food you bought not last and you didn't have the money to get more?: Never true Within the past 12 months, did you worry whether your food would run out before you got money to buy more?: Never true Do you have trouble paying for medicines?: No Do you have trouble getting transportation to medical appointments?: No Do you have trouble paying your heating and electricity bill?: No Do you have trouble taking care of your child, family member or friend?: No Do you have trouble with day-to-day activities such as bathing, preparing meals, shopping, managing finances, etc.?: No Are you currently unemployed and looking for a job?: No Are you interested in more education?: No Please select the resources that you would like help with: None Currently or been in a relationship where the following occur: No concerns reported THRIVE Score: 0 AUDIT C Alcohol Use Questionnaire (AUDIT-C) 2. How many drinks containing alcohol do you have on a typical day when you are drinking?: 1 or 2 3. How often do you have six or more drinks on one occasion?: Never Total Score: 0 Score Reviewed/Action Taken: No TUYET-7 AMB Questionnaire TUYET-7 Date TUYET - 7 assessed: 10/15/24 Feeling nervous, anxious, or on edge: 0 = Not at all Not being able to stop or control worryin = Not at all Worrying too much about different things: 0 = Not at all Trouble relaxin = Not at all Being so restless that it is hard to sit still: 0 = Not at all Becoming easily annoyed or irritable: 0 = Not at all Feeling afraid as if something awful might happen: 0 = Not at all Total TUYET-7 score (0-4 normal; 5-9 mild; 10-14 moderate; 15-21 severe): 0 Source: Developed by Drs. Colby Johnson, Adrianna Becerra, Jorge Roper and colleagues, with an educational pilo from [employer]. TUYET-7 Assessment Billing TUYET-7 Assessment Tool: TUYET-7 Assessment 76064 Physical exam (Primary Care) Vital Signs: Last Vital Signs Temp 97.1 F 10/15/24 11:22 Pulse 82 10/15/24 11:22 BP 110/66 10/15/24 11:22 Pulse Ox 97 10/15/24 11:22 Oxygen Delivery Method Room Air 10/15/24 11:22 Care Plan Goal for BP management: <130/80 at goal BMI result Body Mass Index 24.3 Normal BMI Tobacco/Smoking Status: Tobacco use Status Tobacco use date assessed 10/15/24 10/15/24 11:28 Patient Tobacco Use Status Current someday Tobacco 10/15/24 11:19 Tobacco use type Cigarette 10/15/24 11:19 e-Cigarette/Vaping Use Never Used 10/15/24 11:19 PHQ-9: PHQ-9 Score PHQ-9: Total score 0 10/15/24 11:21 Depression Screening Interpretation: Negative Thrive Assessment: Date of Thrive Assessment Date Thrive assessed 10/15/24 10/15/24 11:21 Currently or been in a relationship where the following occur: No concerns reported Coding Level of Care Code Est Pt Level 4 (14048) Complex EM visit Add On G2211 Diagnoses Diabetes type 2 E11.9 Anxiety F41.9 Hypertension I10 Mild hypercholesterolemia E78.00 Hyperlipidemia E78.5 Additional Codes PHQ-9 - 27721 - PHQ-9 Billing: Yes ([id number]) TUYET-7 Assessment Billing - TUYET-7 Assessment Tool: TUYET-7 Assessment 24346 ([id number]) Assessment & Plan Assessment & Plan (1) Diabetes type 2: Code(s): E11.9 - Type 2 diabetes mellitus without complications Category: Medical Plan: A1c level 6.8. Patient currently on metformin 500 mg b.i.d.. Average glucose level over the past month with her glucometer reveals 130. A1c level go less than 7.0. Will continue current regimen. Patient to continue monitoring her glucose levels and to return in 3 months for ongoing evaluation and management. Condition is chronic and stable continue to monitor. (2) Anxiety: Code(s): F41.9 - Anxiety disorder, unspecified Category: Medical Plan: Patient currently on lorazepam 1 mg p.o. b.i.d. p.r.n.. Condition is chronic And stable will continue to monitor. (3) Hypertension: Code(s): I10 - Essential (primary) hypertension Category: Medical Plan: Blood pressure goal less than 130/70. Blood pressure at goal. patient blood pressure at goal without any antihypertensives will continue at this time and monitor. Condition is chronic and stable continue to monitor. (4) Mild hypercholesterolemia: Code(s): E78.00 - Pure hypercholesterolemia, unspecified Category: Medical Plan: Total cholesterol 241. Goal is less than 200. Total LDL 161 goal for LDL is less than 70. patient was started on atorvastatin 10 mg in August. Will continue to monitor condition is chronic and stable. (5) Hyperlipidemia: Code(s): E78.5 - Hyperlipidemia, unspecified Category: Medical Plan: Total cholesterol 241. Goal is less than 200. Total LDL 161 goal for LDL is less than 70. patient was started on atorvastatin 10 mg in August. Will continue to monitor condition is chronic and stable. Plan Plan Patient was informed and verbally consented to the use of an ambient scribe for clinic note documentation during this visit. - Type 2 Diabetes Mellitus Without Complications: - Hyperlipidemia: The patient has an ongoing diagnosis of hyperlipidemia. She is on atorvastatin therapy to manage her cholesterol levels. I have advised a re-evaluation of lipid levels in three months to assess the effectiveness of atorvastatin therapy. Additionally, a referral for a dietitian has been made to assist the patient with meal planning that takes into consideration both her diabetes management and hyperlipidemia. - Anxiety: The patient is experiencing episodes of anxiety, possibly exacerbated by concerns over fluctuating blood glucose levels. She utilizes lorazepam for symptomatic management. The medication is prescribed at a dosage of 1 mg twice daily as needed, which the patient reports as helping with her sleep and providing a calming effect. Scribe Plan - Not visible on output: History of Present Illness The patient is a 69-year-old female presenting for a follow-up on recent diagnoses and ongoing health management. She was diagnosed with type 2 diabetes mellitus in August 2022 after her hemoglobin A1c level constantin from 6.2% in September 2023, classifying her then as prediabetic, to 6.8%. As her hemoglobin A1c exceeded the 6.5% threshold, type 2 diabetes mellitus was confirmed. Before the diagnosis, the patient's blood glucose levels had notably fluctuated, reaching 253 mg/dL and dropping to 90 mg/dL without metformin administration. The patient is actively checking her blood glucose levels pre- and post-meals, experiences lower readings at night, likely due to a late night cereal snack consumed at 9:00 PM, which possibly spikes her morning glucose levels. Additionally, the patient reports high cholesterol levels and has been prescribed atorvastatin for hyperlipidemia. A referral for a human performance consultant has been made to address her dietary concerns due to her diabetes and cholesterol management. The patient is anxious about her recent health changes and experiences anxiety fluctuations tied to her blood sugar levels. She is currently prescribed lorazepam to manage her anxiety symptoms. There have been no reported issues with stomach upset, diarrhea, or constipation since increasing vegetable intake and using Colace and MiraLax as needed. The patient is also taking a weekly vitamin D supplement. Her current blood pressure is well-controlled at 110/66 mm Hg, and her recent fingerstick blood glucose average over the past seven days has been 130 mg/dL. Social History - The patient is a 69-year-old female residing independently. - Expresses concern over dietary choices, specifically in managing cholesterol and diabetes. - Actively avoids red meat and monitors sugar intake. - Experiences anxiety related to health conditions. - Engages in increased vegetable consumption and basic dietary management for weight and cholesterol control, leading to weight loss. Review of Systems - Episodes of anxiety related to blood sugar fluctuations. - Reports of high (253 mg/dL) and low (90 mg/dL) blood glucose levels. - Anxiety causes worrying when blood sugar spikes. - No reported issues with upset stomach, diarrhea, or constipation. - Difficulty in understanding appropriate dietary choices for diabetes and hyperlipidemia management. Physical Exam Appearance: Alert. Oriented X3. No acute distress. Head: Normal external exam. Normocephalic. Atraumatic. Eyes: Pupils are equal, round, and reactive to light. Extraocular movements intact. Conjunctiva and sclera normal. Eyelids normal. Ears: External auditory canal normal. Tympanic membranes normal. Throat: Pharynx normal. Uvula midline. Moist mucous membranes. Neck: Normal inspection. Neck supple. Full range of motion. No adenopathy. Thyroid Normal. No meningeal signs. No neck mass noted. Cardiovascular: Normal heart rate and rhythm. Heart sound normal. No murmurs noted. Pulses normal throughout. Respiratory: No respiratory distress. Painless inspiration. Breath sounds normal. No wheezes/rales/rhonchi noted. Chest nontender. No accessory muscle usage noted or decreased air movement noted. Abdomen: Soft and nontender. Bowel sounds normal in all 4 quadrants. No distention noted. No organomegaly noted. No visible injury noted. Back: No costovertebral angle tenderness. Full range of motion noted. Skin: Skin warm and dry. Normal skin color. Normal skin turgor. No rashes/lesions/lacerations noted. Extremities: No lower extremity edema. Extremities exhibit normal range of motion. Extremities nontender. Neuro: Oriented X 3. No motor deficit. No sensory deficit. Reflexes normal. Blood pressure is 110/66. Results - Hemoglobin A1c: September 2023 - 6.2%, August 2023 - 6.8% (indicating diabetes mellitus) - Serum cholesterol: Elevated - Average blood glucose over the past seven days: 130 mg/dL Discussion Notes I discussed several aspects of the patient's care, primarily focusing on the management of her recently diagnosed type 2 diabetes mellitus, hyperlipidemia, and anxiety. It was explained that her current treatment with metformin, initiated in August at 500 mg twice daily, is appropriate for managing her A1c level of 6.8%. We are aiming to maintain her blood glucose levels between 60 and 120 mg/dL. I reassured her that metformin should not cause severe hypoglycemia, as it acts gradually over approximately 12 hours instead of acutely reducing blood glucose. The importance of consistent medication adherence, specifically the regular intake of metformin with meals, was emphasized to stabilize her blood glucose levels. I addressed her concern regarding low readings at night, assuring her that metformin is not likely to cause hypoglycemia if her blood sugar drops to 60 mg/dL; she was advised not to take the medication in such circumstances as this could lead to dangerously low blood glucose levels. I advised her on lifestyle modifications to aid in controlling her diabetes and managing her cholesterol levels, suggesting increased vegetable intake and moderate consumption of high glycemic foods like pasta, bread, and sugary snacks. These changes are aimed at weight management and improving overall blood glucose and cholesterol levels. Furthermore, I clarified that her current medications, including atorvastatin for hyperlipidemia, metformin for diabetes, and lorazepam for anxiety, do not interact negatively and can be taken together. I also scheduled a follow-up appointment in three months for the reevaluation of her condition, in particular, to reassess her A1c and lipid levels. A reminder for necessary blood work has been noted, and appropriate referrals for dietary counseling have been made to assist with her nutrition concerns related to diabetes and hyperlipidemia. We also discussed monitoring her blood glucose levels, aiming for values between 80 to 120 mg/dL. If her glucose levels exceed 250 mg/dL, she is advised to contact our office, at which point an adjustment of her metformin regimen will be considered. The education on dietary modifications was provided, including avoiding high-sugar drinks and maintaining a balanced diet focusing on controlled portions and food quality. Patient is advised to continue the current medications including atorvastatin, metformin, and lorazepam. As for further testing, the patient was reminded of the pending referral to a dietitian and advised to contact our office if the appointment is not coordinated within a suitable period. We also discussed the need for blood work to monitor hyperglycemia and hepatitis exposure, with an A1c check scheduled for her next visit in January. Patient voiced concerns over potential food interactions with current medications. Reassured that the anxiety medication does not interact with either her cholesterol or diabetes medication, while confirming her current medication regimen does not cause drowsiness other than the standard effects attributed to lorazepam. I recommended hydration and metformin adherence if her blood sugar steps outside the targeted range, with specific emphasis on avoiding unnecessary concern over short-term fluctuations that fall within 80 to 120 mg/dL. Patient demonstrated understanding and was receptive to following up with a dietitian for further guidance. Referrals have been placed appropriately, and blood work for assessment of hepatitis exposure was noted for immediate processing without fasting requirements. The necessity of maintaining diet modifications and following up for reevaluation in three months was stressed as part of her ongoing management plan. Patient has an additional appointment scheduled in January to reassess her A1c levels, during which necessary adjustments to her therapies will be discussed. I reiterated the instructions for her current medications: to continue metformin oral tablets, 500 mg twice daily, to manage type 2 diabetes mellitus, along with atorvastatin for hyperlipidemia, and lorazepam for anxiety management. The patient should contact the office if glucose levels exceed 300 mg/dL or if any adverse symptoms arise, to evaluate the necessity for adjusting her current regimen.
[2024-10-15 11:22] VITALS: BP 110/66; PULSE 82; TEMP 36.2; O2SAT 97; BMI 24.3
--- OUTSIDE RECORDS SUMMARY | 2024-10-15 14:10 | XMS_ITS | Encounter Summary ---
Author Organization [facility] Address [address] [place] [address] Care Team Providers Care Rink Rat Name Role Phone Kody Pierre MD Primary Care Provider [phone] Reason for Visit * Reason Comments DM Foot Care Encounter Details Date Type Department Care Team (Late st Contact Info) Description 09/22/2024 2:45 PM EST Office Visit Orthopedic Surgery - [place] [id number] [phone] Helder Coulter DPM [address] [id number] Dermatophytosis of nail (Primary Dx); Tinea pedis of both feet; Pain in toe of right foot; Pain in toe of left foot; Diabetic mononeuropathy simplex (CMS/HCC) Social History Tobacco Use Types Packs/Day Years Used Date Smoking Tobacco: Every Day Smokeless Tobacco: Never Alcohol Use Standard Drinks/Week Comments No 0 (1 standard drink = 0.6 oz pur e alcohol) Comments Unknown Sex and Gender Information Value Date Recorded Sex Assigned at Not on file Legal Sex Female 3:28 PM EST Gender Identity Not on file Sexual Orientation Not on file documented as of this encounter Ordered Prescriptions Prescription Sig Dispense Quantity Refills Last Filled Start Date End Date clotrimazole (LOTRIMIN) 1 % cream Apply topically 2 (two) times a day. 30 g 3 09/22/2024 documented in this encounter Progress Notes * Helder Coulter DPM - 09/22/2024 2:45 PM EST S Patient presents today she was last seen over 2 years ago reports that she has elongated painful thickened nails are growing her skin she states she she has some reoccurrence of ingrown nails been bothering her she has some difficulty in care of notes that she is a type II diabetic has had some occasional numbness burning tingling she would like to have her feet evaluated ROS: GENERAL: Pt denies nausea, fever, vomiting, chills, or shortness of breath. Pt in NAD. CARDIOLOGY: pt denies chest pain, palpitations LUNGS: pt denies shortness of breath MUSCULOSKELETAL: See HPI, otherwise no joint pain or swelling, back pain, or muscle pain. SKIN: see HPI, otherwise no lesions, rash or itching NEURO: No persistent headache, weakness or numbness The remainder of the review of systems is noncontributory PAST MEDICAL HISTORY: Patient Active Problem List Diagnosis Anxiety and depression Cerebral palsy (CMS/HCC) HTN (hypertension) Hyperlipidemia Insomnia Type 2 diabetes mellitus (CMS/HCC) SOCIAL HISTORY: Social History Tobacco Use Smoking status: Every Day Smokeless tobacco: Never Substance Use Topics Alcohol use: No ACTIVE MEDICATIONS: No outpatient medications have been marked as taking for the 09/22/24 encounter (Office Visit) with Helder Coulter DPM. ALLERGIES: Allergies Allergen Reactions Sulfa (Sulfonamide Antibiotics) No reaction documented. PHYSICAL EXAM: Visit Vitals Smoking Status Every Day PODIATRIC EXAMINATION: GENERAL: Patient appears well nourished, with NAD. VASCULAR: Dorsalis pedis pulses are 2/4 bilaterally and Posterior tibial pulses are 1/4 bilaterally. Capillary filling time within normal limits the digits. No pallor on elevation or rubor on dependency. Deminished hair growth. Present varicosities +2 pitting edema. Feet cool to touch. Denies rest pain or claudication pain. NEUROLOGICAL: Sharp/dull sensation intact, protective sensation intact 10/10 with 5.07 semmes lester bilaterally, vibratory sensation with tuning fork intact to the tibial tuberosity. ORTHOPEDIC: Good muscle strength 5/5 of all flexors and extensors. Dorsi flexion of ankle ,10 degrees, plantar flexion WNL. No muscle atrophy. DERMATOLOGICAL:. Abnormal curvature of the right and left fifth digit ingrown medial lateral nail fold irritation ofthe skin bilaterally Toenails are thick elongated painful with yellow discoloration He has skin both great toenails normal scar formation Toenails: Left Toenail(s) 1-5: Crumbling upon debridement, subungual debris, discoloration, dystrophy, elongation, mycotic appearance, onychomycosis, pain and thickening. Right Toenail(s) 1-5: Crumbling upon debridement, subungual debris, discoloration, dystrophy, elongation, mycotic appearance, onychomycosis, pain and thickening. Annular scaling bilateral feet moccasin distribution Skin thinning texture shiny appearance diffuse hyperpigmentation bilaterally pedal hair decreased BIOMECHANICS: STJ ROM wnl, MTJ ROM wnl, 1st MPJ ROM wnl. On weight bearing, wnl SHOES:sneakers IMAGING: IMPRESSION: 1. Dermatophytosis of nail 2. Tinea pedis of both feet 3. Pain in toe of right foot 4. Pain in toe of left foot 5. Diabetic mononeuropathy simplex (CMS/HCC) PLAN: Discussed worsening dermatophytosis of nails with patient Discussed with patient resolving her nails both great toenails -Clotrimazole prescribed -Discussed oral antifungals patient states like to hold off on at this time revisited oral antifungals Discussed worsening ingrowi adsfng nail of the fifth digit bilaterally recommend potential permanent nail avulsion of the right and left fifth toenail she states she like to think about it Discussed with patient regarding proper glucose control, exercise, and diet. Explained to patient proper shoe gear, and importance of daily foot checks. I reviewed neuropathy and why it occurs in diabetics. I educated the patient on proper blood sugar control and the importance of an HgBA1c of less than 7.0%. I reviewed the signs and symptoms of neuropathy with the patient Pt to return for another evaluation in 3 months. Debridement of mycotic toenails 6-10: Verbal informed consent was obtained from the patient. Greater than 6 nails were aseptically debrided in thickness and length with nail nippers Helder Coulter DPM documented in this encounter Plan of Treatment Upcoming Encounters Date Type Department Care Team (Late st Contact Info) Description 12/21/2024 10:15 AM EDT Office Visit Orthopedic Surgery - [place] [address] [phone] Helder Coulter DPM [address] [id number] documented as of this encounter Visit Diagnoses Diagnosis Dermatophytosis of nail- Primary Tinea pedis of both feet Pain in toe of right foot Pain in soft tissues of limb Pain in toe of left foot Pain in soft tissues of limb Diabetic mononeuropathy simplex (CMS/HCC) Type II or unspecified type diabetes mellitus with neurological manifestations, not stated as uncontrolled documented in this encounter Care Teams Rink Rat Relationship Specialty Start Date End Date Kody Pierre MD [address] [place] [address] [address] [place] [address] PCP - General Internal Medicine 05/05/20 documented as of this encounter
--- OUTSIDE RECORDS SUMMARY | 2024-10-15 14:10 | XMS_ITS | Clinical Summary ---
Author Organization 175 [facility] Address 175 [place] [address] Phone Care Team Providers Care Desk Assistant Name Role Phone Kody Pierre MD Primary Care Provider [phone] Allergies Active Allergy Reactions Criticality Noted Date Comments Sulfa (Sulfonamide Antibiotics) 05/24/2020 No reaction documented. Medications naproxen (NAPROSYN) 500 mg tablet TAKE ONE TABLET BY MOUTH TWICE A DAY NEEDED FOR PAIN 3 Active LORazepam (ATIVAN) 1 mg tablet TAKE ONE TABLET BY MOUTH TWICE A DAY NEEDED FOR ANXIETY 1 Active eszopiclone (LUNESTA) 2 mg tablet TAKE ONE TABLET BY MOUTH AT BEDTIME 1 Active albuterol 2.5 mg /3 mL (0.083 [...] daily. Apply to nails twice a day 0 Active ciclopirox (PENLAC) 8 % solution Apply to nail once a day 0 Active clotrimazole (LOTRIMIN) 1 % cream Apply topically 2 (two) times a day. 30 g 3 5 10/23/19 25 Active Active Problems Problem Noted Date Diagnosed Date Anxiety and depression 07/21/2020 Cerebral palsy 07/21/2020 Overview (08/04/2024): infantile HTN (hypertension) 07/21/2020 Hyperlipidemia 07/21/2020 Insomnia 07/21/2020 Type 2 diabetes mellitus 07/21/2020 Encounters Date Type Department Care Team Description 09/22/2024 2:45 PM EST Office Visit Orthopedic Surgery - [place] [address] [place] [phone] Helder Coulter, DPM Dermatophytosis of nail (Primary Dx); Tinea pedis of both feet; Pain in toe of right foot; Pain in toe of left foot; Diabetic mononeuropathy simplex (CMS/HCC) from Last 3 Months Immunizations Name Administration Dates Next Due Influenza [...] Medical History Medical History Date Comments Diabetes (CMS/HCC) DX:Diabetes ( HCC) Type 2 diabetes mellitus (CMS/HCC) 07/21/2020 DX:Type 2 diabetes mellitus (HCC) Cerebral palsy (CMS/HCC) 07/21/2020 DX:Cere bral palsy ([facility]); COMMENT: infantile Insomnia 07/21/2020 DX:Insomnia Anxiety and [...] AM EDT Office Visit Orthopedic Surgery - [place] [address] [phone] Helder Coulter, DPM [address] [address] Health Maintenance Due Date Last Done Comments Breast Cancer Screening 1955 Diabetes: Annual GFR (Glomerular Filtration Rate) 1956 Diabetes: Annual Foot Exam 02/25/1966 Diabetes: Annual Retina Eye Exam 02/25/1966 Cholesterol Screening (Lipid Panel) 07/14/2022 Depression Screening 07/14/2022 Falls Risk Assessment 07/14/2022 Hepatitis C Screening 07/14/2022 Medicare Annual Wellness Visit 07/14/2022 Osteoporosis Screening (Bone Density Screening) 07/14/2022 Social Influencers of Health Screening 07/14/2022 Diabetes: Annual Urine Albumin-Creatinine Ratio (uACR) 07/15/2022 Diabetes: Blood Sugar Control Test (HGBA1C) 07/15/2022 Hypertension/CHF/CAD Annual BMP Blood Test 07/21/2022 Colorectal Cancer Screening: FIT-DNA (Cologuard) 04/21/2024 04/21/2021, 04/21/2021 DTaP,Tdap,and Td Vaccines (4 - Td or Tdap) 04/24/2032 04/24/2022, 06/13/2011, 01/26/2009 RSV Immunization Patients 60+ Years Old Completed 06/22/2023 Pneumococcal Vaccine: 50+ Years Completed 03/08/2024, 08/15/2016, 07/16/2012 COVID-19 Vaccine Completed 04/08/2024, , 06/17/2022, Additional history exists Influenza Vaccine Completed 04/08/2024, , 04/24/2022, Additional history exists Zoster Vaccines Completed 06/29/2024, 04/06, 07/10/2016 HIB Vaccines Aged Out No longer eligi [...] patient's age to complete this topic Meningococcal B Vacine Aged Out No lo nger eligible based on patient's age to complete this topic RSV Immunization Patients Under 20 months Aged Out No longer eligible based on patient's age to complete this topic Varicella Vaccines Aged Out No longer eligible based on patient's age to complete this topic Insurance [address] [place] [address] MED[place]ID - [place] [facility] MED[employer] [employer]AGE Care Teams Desk Assistant Relationship Specialty Start Date End Date Kody Pierre MD [address] [place] [address] PCP - General Internal Medicine 05/05/20
--- OUTSIDE RECORDS SUMMARY | 2024-10-15 14:10 | XMS_ITS | Clinical Summary ---
Author Organization [employer] Address [address] [facility] 7 [place] [address] Care Team Providers Care Decorating Inspector Name Role Phone Unavailable Primary Care Provider [...] (2 of 3) 09/04/2016 07/10/2016 Pneumococcal Vaccine: 50+ Years (3 of 3 - PCV20 or PCV21) 08/15/2021 08/15/2016, 07/16/2012 COVID-19 Vaccine (2023- season) 2024 05/02/2023, 06/17/2022, 03/30/2022, Additional history [...] age to complete this topic Insurance MEDICARE [facility] Member Subscriber Plan / Payer (Ef fective 2023-Present) Name:Estefania Chu Relation to Subscriber:Self Name:Estefania Chu Payer ID:Not on file Group ID:Not on file Type:Not on file Address: [place] [id number]
== END 2024-10-15 12:01 | disposition home or self-care (01) ==
LOC: HO.HMCH 11:01
PROVIDERS: PCP Internal Medicine; Visit Provider Physician Assistant Medical
DX: E11.9 Type 2 diabetes mellitus without complications (principal); F41.9 Anxiety disorder, unspecified; I10 Essential (primary) hypertension; E78.00 Pure hypercholesterolemia, unspecified; E78.5 Hyperlipidemia, unspecified

== ENCOUNTER → 2024-10-15 11:00 | Outpatient (BNVA) | payer OTHER, SELFPAY | PROVIDERS: PCP Internal Medicine; Visit Provider Physician Assistant Medical | DX: E11.9 Type 2 diabetes mellitus without complications (principal); F41.9 Anxiety disorder, unspecified; I10 Essential (primary) hypertension; E78.00 Pure hypercholesterolemia, unspecified; E78.5 Hyperlipidemia, unspecified | CPT/HCPCS: 96127; 99212 ==

== ENCOUNTER 2024-10-16 10:24 | Outpatient (REF) | payer OTHER, SELFPAY ==
--- OUTSIDE RECORDS SUMMARY | 2024-10-16 11:46 | XMS_ITS | Encounter Summary ---
Author Organization [facility] Address [address] [place] [address] Care Team Providers Care Portfolio Architect Name Role Phone Kody Pierre MD Primary Care Provider [phone] Reason for Visit * Reason Comments DM Foot Care Encounter Details Date Type Department Care Team (Late st Contact Info) Description 09/22/2024 2:45 PM EST Office Visit Orthopedic Surgery - [place] [address] [phone] Helder Coulter DPM [address] [phone] Dermatophytosis of nail (Primary Dx); Tinea pedis [...] AM EDT Office Visit Orthopedic Surgery - [place] [address] [phone] Helder Coulter DPM [address] [address] documented as of this encounter Visit Diagnoses [...] uncontrolled documented in this encounter Care Teams Portfolio Architect Relationship Specialty Start Date End Date Kody Pierre MD [address] [place] [address] [address] [place] [address] PCP - General Internal Medicine 05/05/20 documented as of this encounter
--- OUTSIDE RECORDS SUMMARY | 2024-10-16 11:46 | XMS_ITS | Clinical Summary ---
Author Organization [employer] Address [address] [facility] 7 [place] [address] Care Team Providers Care Bomb Loader Name Role Phone Unavailable Primary Care Provider [...] age to complete this topic Insurance MEDICARE [facility] Member Subscriber Plan / Payer (Ef fective 2023-Present) Name:Estefania Chu Relation to Subscriber:Self Name:Estefania Chu Payer ID:Not on file Group ID:Not on file Type:Not on file Address: [place] [id number]
--- OUTSIDE RECORDS SUMMARY | 2024-10-16 11:46 | XMS_ITS | Clinical Summary ---
Author Organization 175 [facility] Address 175 [place] [address] Phone Care Team Providers Care Design Specialist Name Role Phone Kody Pierre MD Primary Care Provider [phone] Allergies Active Allergy Reactions Criticality Noted Date [...] PM EST Office Visit Orthopedic Surgery - [place] [address] [place] [phone] Helder Coulter, DPM Dermatophytosis of nail [...] Cerebral palsy (CMS/HCC) 07/21/2020 DX:Cere bral palsy ([facility]); COMMENT: infantile Insomnia 07/21/2020 DX:Insomnia Anxiety and [...] AM EDT Office Visit Orthopedic Surgery - [place] [address] [phone] Helder Coulter, DPM [address] [address] Health Maintenance Due Date Last Done Comments [...] patient's age to complete this topic Insurance [place] - [place] [facility] MED[place]AGE Care Teams Design Specialist Relationship Specialty Start Date End Date Kody Pierre MD [address] [place] [address] PCP - General Internal Medicine 05/05/20
[2024-10-16 12:44] LABS: HBS Num1 0.07 mIU/mL (0-7.99); HBc Num1 0.07 S/CO (0.00-0.79); HBsAGNum1 0.26 S/CO (0.00-0.99); Hepatitis B Core Antibody Nonreactive (Nonreactive); Hepatitis B Surface Antigen Negative (Negative); ~HepC Num1 0.13 S/CO (0.00-0.79); ~Hepatitis B Surface Antibody NONREACTIVE (Nonreactive); ~Hepatitis C Antibody Nonreactive (Nonreactive)
[2024-10-19 14:58] LABS: HCV Log PCR <1.18 NOT DETECTED Log IU/mL (NOT DETECTED); HepC Viral Load <15 NOT DETECTED IU/mL (NOT DETECTED)
== END 2024-10-16 10:25 | disposition home or self-care (01) ==
LOC: HO.LAB 10:24
PROVIDERS: Visit Provider Physician Assistant Medical
DX: Z20.5 Contact with and (suspected) exposure to viral hepatitis (principal)
CPT/HCPCS: 36415; 86704; 86706; 86709; 86803; 87340; 87522

== ENCOUNTER 2024-11-11 10:54 | Outpatient (AMB) | payer OTHER, SELFPAY ==
--- NOTE | 2024-11-11 11:16 | A.OFFVIS_ITS ---
VS Expanded 11/11/24 11:17 11/12/24 09:19 Height 5 ft 2 in 5 ft 2 in Weight 130 lb 4.691 oz 130 lb BMI 23.8 23.8 Intake Visit Reasons: T2DM Allergies Sulfa (Sulfonamide Antibiotics) [Sulfa (Sulfonamides)] Allergy (Mild, Verified 10/15/24 12:38) UNKNOWN Nutrition Presentation Details: Pt presents for MNT for T2DM food frequency fruits: 0-1/d Ve-3 x/wk dairy : 2-3 x/d starches > 24/d pastries and similar: 2+ in evening mostly fried foods 2x/wk fish 0-1/wk etoh: denies smoking --- Physical activity ADL BS Monitoring Most Recent Diabetes Results: Cholesterol 241 mg/dL (<200) H 08/14/24 HDL Cholesterol 55 mg/dL (>40) 08/14/24 Triglycerides 128 mg/dL (<150) 08/14/24 Creatinine 0.84 mg/dL (0.5-1.4) 08/14/24 Blood Urea Nitrogen 26 mg/dL (9-16) H 08/14/24 Sodium 144 mmol/L (135-145) 08/14/24 Potassium 4.6 mmol/L (3.3-5.1) 08/14/24 Chloride 108 mmol/L (96-108) 08/14/24 Carbon Dioxide 28 mmol/L (22-29) 08/14/24 Calcium 9.3 mg/dL (8.4-10.2) 08/14/24 AST 24 U/L (5-31) 08/14/24 ALT 15 U/L (0-31) 08/14/24 Total Protein 6.9 g/dL (6.5-8.0) 08/14/24 Albumin 3.9 g/dL (3.5-5.0) 08/14/24 NHG-Titwzsp-Zf.Jeor Equation Height: 5 ft 2 in Weight: 130 lb Resting Metabolic Rate: 1077.77 Calculated Activity Level: Mild Activity Calories Needed to Maintain Weight: 1481.93 Diagnosis Nutrition problem #1: food nutri know defi As related to (etiology) #1: diagnosis As evidenced by (sign/symptom) #1: knowledge deficit of diet [facility] Medical History (Updated 10/15/24 @ 13:04 by Adry Ann PA-C) Hyperlipidemia Mild hypercholesterolemia Exposure to hepatitis C Post-menopausal Screening for breast cancer Screening for diabetes mellitus Hypertension Surgical History History of tubal ligation History of tonsillectomy Family History Father Medical history unknown Mother Diabetes Social History Housing: Apartment Alcohol intake: former Year quit: 2019 Patient Tobacco Use Status: Current someday Tobacco user Tobacco use type: Cigarette Cigarette Packs Per Day: 0.5 Cigarettes Per Day: 10 e-Cigarette/Vaping Use: Never Used Second Hand Smoke Exposure: Yes service: No Current occupational status: disabled Cognitive needs: No Hearing needs: No Vision needs: Yes (glasses) Assessment & Plan Assessment & Plan (1) Diabetes type 2: Code(s): E11.9 - Type 2 diabetes mellitus without complications Category: Medical Plan: Wt: 59 Kg ( 11/27 ) Est kcal needs as per MSJ: 1500 (40% carb, 30% protein/fat) Est fluid needs as per 25-30 ml/d: 1800 Est prot per day as per 1 g/kg bw: 60g/d Recommend fiber intake : 8-10 g per day and gradually increase to 25-28 g per day for women and 35-38 g for men or as tolerated Recommend sodium intake per day : less than 1500 mg less than 2000 mg Educated patient on: ( R = reviewed V = verbalizes understanding N/R = needs review N/A = not applicable * Food sources of carbohydrate, adequate serving sizes and its role in various health conditions: R V N/R * Differences between complex carbohydrates a simple carbohydrates, role of fiber in diet: R * Lean protein sources of foods: R * Differences between types of fats and role in diet (mono on saturated fat fatty acids, saturated fatty acids, trans fats): R V N/R * Food sources of sodium in salt and healthy modifications for heart health in kidney health: R V R/V * Vitamins and minerals: R V N/R * Healthy plate method concept: R * Physical activity: Benefits a precaution: R V N/R * Hypoglycemia protocol (rule of 15): R V N/R * Dietary prevention of Hyperglycemia: R Patient Instructions: Follow healthy plate method at dinner and choose nutrient dense snack in the evening see meal ideas consisting of 45-60 g carb at meal with at least 3 oz protein and snack 20 g carb with 1-2 oz protein Coding Level of Care Code Nutr Indiv Intake (70128) Diagnoses Diabetes type 2 E11.9 Time Spent (min) 30
[2024-11-11 11:17] VITALS: BMI 23.8
--- OUTSIDE RECORDS SUMMARY | 2024-11-11 12:48 | XMS_ITS | Clinical Summary ---
Author Organization 175 [facility] Address 175 [place] [address] Phone Care Team Providers Care License Registration Examiner Name Role Phone Kody Pierre MD Primary Care Provider [phone] Allergies Active Allergy Reactions Criticality Noted Date [...] 30 g 3 5 10/23/19 25 Active Problems Problem Noted Date Diagnosed Date Anxiety and depression 07/21/2020 Cerebral palsy 07/21/2020 Overview (08/04/2024): infantile HTN (hypertension) 07/21/2020 Hyperlipidemia 07/21/2020 Insomnia 07/21/2020 Type 2 diabetes mellitus 07/21/2020 Encounters Date Type Department Care Team Description 09/22/2024 2:45 PM EST Office Visit Orthopedic Surgery - [place] [address] [place] [phone] Helder Coulter, DPM Dermatophytosis of nail [...] DX:Diabetes ( HCC) Type 2 diabetes mellitus 07/21/2020 DX:Type 2 diabetes mellitus (HCC) Cerebral palsy 07/21/2020 DX:Cerebral pals y (HCC); COMMENT: infantile Insomnia 07/21/2020 DX:Insomnia Anxiety and [...] AM EDT Office Visit Orthopedic Surgery - [place] [address] [phone] Helder Coulter, JENNA [address] [address] Health Maintenance Due Date Last Done Comments [...] Tdap) 04/24/2032 04/24/2022, 06/13/2011, 01/26/2009 RSV Immunization Adult Patients Completed 06/22/2023 Pneumococcal Vaccine: 50+ Years Completed [...] age to complete this topic Meningococcal B Vaccine Aged Out No l onger eligible based on patient's age to complete this topic RSV Immunization Patients Under 20 months Aged Out No longer eligible based on patient's age to complete this topic Varicella Vaccines Aged Out No longer eligible based on patient's age to complete this topic Insurance [address] [place] [address] [place] - [place] [facility] [place]VANTAGE Care Teams License Registration Examiner Relationship Specialty Start Date End Date Kody Pierre MD [address] [place] [address] PCP - General Internal Medicine 05/05/20
[2024-11-12 09:19] VITALS: BMI 23.8
== END 2024-11-11 12:05 | disposition home or self-care (01) ==
LOC: HO.ENCR 10:55
PROVIDERS: PCP Internal Medicine; Visit Provider Dietitian, Registered
DX: E11.9 Type 2 diabetes mellitus without complications (principal)

== ENCOUNTER → 2024-11-11 10:54 | Outpatient (BNVA) | payer OTHER, SELFPAY | PROVIDERS: PCP Internal Medicine; Visit Provider Dietitian, Registered | DX: E11.9 Type 2 diabetes mellitus without complications (principal) | CPT/HCPCS: 97802 ==

== ENCOUNTER 2024-12-03 08:27 | Outpatient (REF) | payer OTHER, SELFPAY ==
--- OUTSIDE RECORDS SUMMARY | 2024-12-03 08:44 | XMS_ITS | Clinical Summary ---
Author Organization 175 [facility] Address 175 [place] [address] Phone Care Team Providers Care Bottle Dealer Name Role Phone Kody Pierre MD Primary Care Provider [phone] Allergies Active Allergy Reactions Criticality Noted Date [...] to nail once a day 0 Active Active Problems Problem Noted Date Diagnosed Date Anxiety and depression 07/21/2020 Cerebral palsy (CMS/HCC V24, CMS/HCC V28) 2019 Overview (08/04/2024): infantile HTN (hypertension) 07/21/2020 Hyperlipidemia 07/21/2020 Insomnia 07/21/2020 Type 2 diabetes mellitus ([facility] V24, [facility] V 28) 07/21/2020 Encounters Date Type Department Care Team Description 09/22/2024 2:45 PM EST Office Visit Orthopedic Surgery - [place] [address] [place] [phone] Helder Coulter, DPM Dermatophytosis of nail (Primary Dx); Tinea pedis of both feet; Pain in toe of right foot; Pain in toe of left foot; Diabetic mononeuropathy simplex ([facility] V24, [facility] V28) from Last 3 Months Immunizations Name Administration [...] Medical History Medical History Date Comments Diabetes ([facility] V24, [facility] V28) DX:Diabetes (HCC) Type 2 diabetes mellitus ([facility] V24, [facility] V28) 07/21/2020 DX:Type 2 diabetes mellitus (HCC) Cerebral palsy ([facility] V24, [facility] V28) 2019 DX:Cerebral palsy (HCC); COMMENT: infantile Insomnia 07/21/2020 DX:Insomnia Anxiety [...] 10:15 AM EDT Office Visit Orthopedic Surgery [place] [address] [phone] Helder Coulter, DPM [address] [address] Health Maintenance Due Date Last Done Comments [...] Cancer Screening: FIT-DNA (Cologuard) 04/21/2024 04/21/2021, 04/21/2021 COVID-19 Vaccine ( season) 2024 04/08/2024, 05/02/2023, 06/17/2022, Additional history exists DTaP,Tdap,and Td Vaccines (4 - Td or Tdap) 04/24/2032 04/24/2022, 06/13/2011, 01/26/2009 RSV Immunization Adult Patients Completed 06/22/2023 Pneumococcal Vaccine: 50+ Years Completed 03/08/2024, 08/15/2016, 07/16/2012 Influenza Vaccine Completed 04/08/2024, , 04/24/2022, Additional [...] [place] [facility] [employer] [place] Care Teams Bottle Dealer Relationship Specialty Start Date End Date Kody Pierre MD [address] [place] [address] Drive [address] [place] [address] PCP - General Internal Medicine 05/05/20
--- OUTSIDE RECORDS SUMMARY | 2024-12-03 08:44 | XMS_ITS | Clinical Summary ---
Author Organization [facility] Address [address] [facility] 7 [place] [address] Care Team Providers Care Tobacco Stripper Name Role Phone Unavailable Primary Care Provider Unavailabl e Allergies Active Allergy Reactions Criticality Noted Date Comments Sulfa Antibiotics 05/24/2020 No reaction documented. Medications LORazepam (Ativan) 1 MG tablet Take 1 mg by mouth if needed in the morning and at bedtime for anxiety. Active atorvastatin (Lipitor) 10 MG tablet Take 10 mg by mouth at bedtime. 5 Active D3-50 1.25 MG (91665 UT) capsule TAKE 1 CAPSULE BY MOUTH EVERY WEEK FOR 3 MONTHS FOR VITAMIN DAILY DEFICIENCY 5 Active metFORMIN (Glucophage) 500 MG tablet TAKE ONE TABLET BY MOUTH EVERY DAY FOR DIABETES 5 Active docusate sodium (Colace) 100 MG capsule Take 1 capsule by mouth 2 times daily. 5 Active naproxen (Naprosyn) 500 MG tablet Take 500 mg by mouth if needed in the morning and at bedtime. Active polyethylene glycol, PEG, 3350 (Glycolax) 17 GM/SCOOP powder TAKE 17 GRAMS BY MOUTH TWO TIMES A DAY 5 Active albuterol 108 (90 Base) MCG/ACT inhaler Inhale 2 puffs every 4 (four) hours if needed. 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) from Last 3 Months Immunizations Name Administration Dates Next Due Pfizer Covid-19 Vaccine 12+ 05/02/2023 Social History Tobacco Use Types Packs/Day Years Used Date Smoking Tobacco: Every Day Cigarettes Smokeless Tobacco: Never Tobacco Cessation:Ready to Q uit: Not Asked; Counseling Given: Not Answered Alcohol Use Standard Drinks/Week Comments Never 0 (1 standard drink = 0.6 oz pur e alcohol) Comments Unknown Sex and Gender Information Value Date Recorded Sex Assigned at Female 05/02/2023 10:09 AM EDT Legal Sex Female 10:07 AM EDT Gender Identity Female 05/02/2023 10:09 AM EDT Sexual Orientation Straight 05/02/2023 10 :09 AM EDT Last Filed Vital Signs Vital Sign Reading Time Taken Comments Blood Pressure 130/76 10/26/2024 8:40 AM EDT Pulse - - Temperature - - Respiratory Rate - - Oxygen Saturation - - Inhaled Oxygen Concentration - - Weight - - Height - - Body Mass Index - - Plan of Treatment Health Maintenance Due Date Last Done Comments CT Colonography 1956 Colonoscopy 1956 Dental Oral Exam 1956 Dental Prophylaxis 1956 Dental X-Ray: Bitewings 1956 Dental X-Ray: Full Mouth 1956 Depression Screening 1956 Diabetes: Hemoglobin A1C 1956 FIT 1956 FOBT 1956 Lipid Panel 1956 SDOH Screening 1956 Sigmoidoscopy 1956 Diabetes: Foot Exam 02/25/1966 Eye Exam 02/25/1966 Alcohol/Substance Use Screening 1968 Hepatitis C Screening 02/25/1974 Diabetes: Urine Protein Screening 02/25/1975 Mammogram 1996 Colorectal Cancer Screening 04/21/2024 FIT DNA/Cologuard 04/21/2024 04/21/2021 Tobacco Screening 10/26/2025 10/26/2024 RSV Patients and Patients Aged 60 years or older (1 - 1-dose 75+ series) 02/25/2031 DTaP/Tdap/Td Vaccines (4 - Td or Tdap) 04/24/2032 04/24/2022, 06/13/2011, 01/26/2009 Pneumococcal Vaccine: 50+ Years Completed 03/08/2024, 08/15/2016, [...] on patient's age to complete this topic Procedures Procedure Name Priority Date/Time Associated Diagnosis Comments CASE PRESENTATION, DETAILED AND EXTENSIVE TREATMENT PLANNING Routine 10/26/2024 8:30 AM EDT CONSULTATION - DIAGNOSTIC SERVICE PROVIDED BY DENTIST OR PHYSICIAN OTHER THAN REQUESTING DENTIST OR PHYSICIAN Routine 10/26/2024 8:30 AM EDT Max COMPLETE DENTURE Routine 10/26/2024 12:00 AM EDT 32 EXTRACTION Routine 10/26/2024 12:00 AM EDT 31 EXTRACTION Routine 10/26/2024 12:00 AM EDT 30 EXTRACTION Routine 10/26/2024 12:00 AM EDT 29 EXTRACTION Routine 10/26/2024 12:00 AM EDT 28 EXTRACTION Routine 10/26/2024 12:00 AM EDT 27 EXTRACTION Routine 10/26/2024 12:00 AM EDT 26 EXTRACTION Routine 10/26/2024 12:00 AM EDT 25 EXTRACTION Routine 10/26/2024 12:00 AM EDT 24 EXTRACTION Routine 10/26/2024 12:00 AM EDT 23 EXTRACTION Routine 10/26/2024 12:00 AM EDT 22 EXTRACTION Routine 10/26/2024 12:00 AM EDT 21 EXTRACTION Routine 10/26/2024 12:00 AM EDT 20 EXTRACTION Routine 10/26/2024 12:00 AM EDT 19 EXTRACTION Routine 10/26/2024 12:00 AM EDT 18 EXTRACTION Routine 10/26/2024 12:00 AM EDT 17 EXTRACTION Routine 10/26/2024 12:00 AM EDT 16 EXTRACTION Routine 10/26/2024 12:00 AM EDT 15 EXTRACTION Routine 10/26/2024 12:00 AM EDT 14 EXTRACTION Routine 10/26/2024 12:00 AM EDT 13 EXTRACTION Routine 10/26/2024 12:00 AM EDT 12 EXTRACTION Routine 10/26/2024 12:00 AM EDT 11 EXTRACTION Routine 10/26/2024 12:00 AM EDT 10 EXTRACTION Routine 10/26/2024 12:00 AM EDT 9 EXTRACTION Routine 10/26/2024 12:00 AM EDT 8 EXTRACTION Routine 10/26/2024 12:00 AM EDT 7 EXTRACTION Routine 10/26/2024 12:00 AM EDT 6 EXTRACTION Routine 10/26/2024 12:00 AM EDT 5 EXTRACTION Routine 10/26/2024 12:00 AM EDT 4 EXTRACTION Routine 10/26/2024 12:00 AM EDT 3 EXTRACTION Routine 10/26/2024 12:00 AM EDT 2 EXTRACTION Routine 10/26/2024 12:00 AM EDT 1 EXTRACTION Routine 10/26/2024 12:00 AM EDT from Last 3 [place] [id number] DENTAL - [facility]
[2024-12-03 09:35] LABS: Estimated Average Glucose 131 mg/dL; Hemoglobin A1C 176.0898 umol/L; Hemoglobin A1c % 6.2 % (<6.0); Total Hemoglobin (HGBA1C) 3975.4466 umol/L
[2024-12-03 10:26] LABS: Vitamin D 25-OH Total 112.7 ng/mL (>30)
== END 2024-12-03 08:28 | disposition home or self-care (01) ==
LOC: HO.LAB 08:27
PROVIDERS: PCP Physician Assistant Medical; Visit Provider Physician Assistant Medical
DX: Z00.00 Encounter for general adult medical examination without abnormal findings (principal); E11.9 Type 2 diabetes mellitus without complications
CPT/HCPCS: 36415; 82306; 83036

== ENCOUNTER 2024-12-29 10:20 | Outpatient (AMB) | payer OTHER, SELFPAY ==
[2024-12-29 10:45] VITALS: BMI 22.6
--- NOTE | 2024-12-29 10:45 | A.OFFVIS_ITS ---
VS Expanded 12/29/24 10:45 Height 5 ft 2 in Weight 123 lb 10.869 oz BMI 22.6 Intake Visit Reasons: T2DM Allergies Sulfa (Sulfonamide Antibiotics) [Sulfa (Sulfonamides)] Allergy (Mild, Verified 10/15/24 12:38) UNKNOWN Nutrition Presentation Details: Pt presents for MNT f/u for T2DM Pt reports working on diet modifications but not content with weight loss,has lost 7 lbs since last nutrition visit with this provider, a month ago. Noted A1c at 6.2% on 12/2024 from 6.8% on 08/2024 Pt currently does not have a glucometer to monitor blood glucose. Pt has cerebral palsy and hands shake, reports it will be difficult to self test blood glucose by finger stick due to shakiness. Pt may benefit from glucose sensor was advised to discuss with primary care physician or may need referral from primary care to an revenue enforcement agent. BS Monitoring Most Recent Diabetes Results: No Data to Display [facility] Medical History (Updated 11/13/24 @ 18:25 by Arianna Florian MD) Hyperlipidemia Mild hypercholesterolemia Exposure to hepatitis C Post-menopausal Screening for breast cancer Screening for diabetes mellitus Hypertension Surgical History History of tubal ligation History of tonsillectomy Family History Father Medical history unknown Mother Diabetes Social History Housing: Apartment Alcohol intake: former Year quit: 2019 Patient Tobacco Use Status: Current someday Tobacco user Tobacco use type: Cigarette Cigarette Packs Per Day: 0.5 Cigarettes Per Day: 10 e-Cigarette/Vaping Use: Never Used Second Hand Smoke Exposure: Yes service: No Current occupational status: disabled Cognitive needs: No Hearing needs: No Vision needs: Yes (glasses) Assessment & Plan Assessment & Plan (1) Diabetes type 2: Code(s): E11.9 - Type 2 diabetes mellitus without complications Category: Medical Plan: Wt: 59 Kg ( 11/27 ), 56 kg (12/27) Est kcal needs as per MSJ: 1500 (40% carb, 30% protein/fat) Est fluid needs as per 25-30 ml/d: 1800 Est prot per day as per 1 g/kg bw: 60g/d Recommend fiber intake : 8-10 g per day and gradually increase to 25-28 g per day for women and 35-38 g for men or as tolerated Recommend sodium intake per day : less than 1500 mg less than 2000 mg Educated patient on: ( R = reviewed V = verbalizes understanding N/R = needs review N/A = not applicable * Food sources of carbohydrate, adequate serving sizes and its role in various health conditions: R * Differences between complex carbohydrates a simple carbohydrates, role of fiber in diet: R * Lean protein sources of foods: R * Differences between types of fats and role in diet (mono on saturated fat fatty acids, saturated fatty acids, trans fats): R V N/R * Food sources of sodium in salt and healthy modifications for heart health in kidney health: R V R/V * Vitamins and minerals: R V N/R * Healthy plate method concept: R * Physical activity: Benefits a precaution: R * Hypoglycemia protocol (rule of 15): R V N/R * Dietary prevention of Hyperglycemia: R Patient Instructions: Include a variety of foods in the diet following healthy plate method; example , include fruit or a starch and a cup of milk at lunch vs salad protein /water, see list of meal options Switch to whole milk with meals vs skim milk keep physically active as able Coding Level of Care Code Nutr Indiv Subseq (30476) Diagnoses Diabetes type 2 E11.9 Time Spent (min) 30
--- OUTSIDE RECORDS SUMMARY | 2024-12-29 11:07 | XMS_ITS | Clinical Summary ---
Author Organization [facility] Address [address] [place] [address] Care Team Providers Care Production Scheduler Name Role Phone Unavailable Primary Care Provider Unavailabl e Allergies Active Allergy Reactions Criticality Noted Date Comments Sulfa Antibiotics 05/24/2020 No reaction documented. Medications LORazepam (Ativan) 1 MG tablet Take 1 mg by mouth if needed in the morning and at bedtime for anxiety. Active atorvastatin (Lipitor) 10 MG tablet Take 10 mg by mouth at bedtime. 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
== END 2024-12-29 11:17 | disposition home or self-care (01) ==
LOC: HO.ENCR 10:20
PROVIDERS: PCP Internal Medicine; Visit Provider Dietitian, Registered
DX: E11.9 Type 2 diabetes mellitus without complications (principal)

== ENCOUNTER → 2024-12-29 10:20 | Outpatient (BNVA) | payer OTHER, SELFPAY | PROVIDERS: PCP Internal Medicine; Visit Provider Dietitian, Registered | DX: E11.9 Type 2 diabetes mellitus without complications (principal); Z71.3 Dietary counseling and surveillance | CPT/HCPCS: 97803 ==

== ENCOUNTER 2025-01-14 11:20 | Outpatient (AMB) | payer OTHER, SELFPAY ==
[2025-01-14 11:26] VITALS: BP 128/70; PULSE 78; RESP 20; TEMP 36.2; O2SAT 98; BMI 22.7
--- NOTE | 2025-01-14 11:26 | A.OFFPC_ITS ---
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: Present Accompanied by: Nephew or Niece Allergies Sulfa (Sulfonamide Antibiotics) [Sulfa (Sulfonamides)] Allergy (Mild, Verified 01/14/25 11:30) UNKNOWN Medication List - Last Reconciled 01/14/25 by Arianna Florian MD albuterol sulfate 90 mcg/actuation (Ventolin HFA) 2 puffs inhalation Q4-6H PRN atorvastatin 10 mg PO BEDTIME blood sugar diagnostic (FreeStyle Lite Strips) check glucose TID blood-glucose meter (WipebookStyle Lite Meter kit) check glucose TID blood-glucose sensor (WipebookStyle Rah 3 Plus Sensor device) check glucose TID before meals - 1 sensor every 15 days blood-glucose,sider,cont (FreeStyle Rah 3 [place]) As directed cholecalciferol (vitamin D3) 1,250 mcg PO QWEEK 3 months docusate sodium (Colace) 100 mg PO BID lancets (FreeStyle Lancets) check glucose TID lorazepam 1 mg PO BID PRN metformin 500 mg PO ONCE 90 days naproxen (Naprosyn) 500 mg PO BID PRN polyethylene glycol 3350 (Miralax) 17 grams PO BID Tobacco use date assessed: 01/14/25 Last assessed Fall Risk: 01/14/25 Dental Screening Dental Screen Date: 01/14/25 [facility] Medical History (Updated 01/14/25 @ 11:56 by Arianna Florian MD) Screening for colon cancer Screening for breast cancer Screening for diabetes mellitus Hyperlipidemia Diabetes type 2 Exposure to hepatitis C Post-menopausal Hypertension Surgical History History of tubal ligation History of tonsillectomy Family History Father Medical history unknown Mother Diabetes Social History Housing: Apartment Alcohol intake: former Year quit: 2019 Patient Tobacco Use Status: Current someday Tobacco user Tobacco use type: Cigarette Cigarette Packs Per Day: 0.5 Cigarettes Per Day: 10 e-Cigarette/Vaping Use: Never Used Second Hand Smoke Exposure: Yes service: No Current occupational status: disabled Cognitive needs: No Hearing needs: No Vision needs: Yes (glasses) Questionnaire PHQ-9 Over the last 2 weeks, how often have you been bothered by any of the following problems? 1. Little interest or pleasure in doing things: not at all 2. Feeling down, depressed, or hopeless: not at all 3. Trouble falling or staying asleep, or sleeping too much: not at all 4. Feeling tired or having little energy: not at all 5. Poor appetite or overeating: not at all 6. Feeling bad about yourself - or that you are a failure or have let yourself or your family down: not at all 7. Trouble concentrating on things, such as reading the newspaper or watching television: not at all 8. Moving or speaking so slowly that other people could have noticed. Or the opposite - being so fidgety or restless that you have been moving around a lot more than usual: not at all 9. Thoughts that you would be better off or of hurting yourself in some w ay: not at all Total score: 0 Depression Screening Interpretation: Negative Depression Screening Done: Yes Source: Developed by Drs. Colby Johnson, Adrianna Becerra, Jorge Roper and colleagues, with an educational pilo from [employer]. Thrive Questionnaire Date Thrive assessed: 01/07/25 I am a: Patient What is your living situation today?: I have a steady place to live Within the past 12 months, did the food you bought not last and you didn't have the money to get more?: Never true Within the past 12 months, did you worry whether your food would run out before you got money to buy more?: Never true Do you have trouble paying for medicines?: No Do you have trouble getting transportation to medical appointments?: No Do you have trouble paying your heating and electricity bill?: No Do you have trouble taking care of your child, family member or friend?: No Do you have trouble with day-to-day activities such as bathing, preparing meals, shopping, managing finances, etc.?: I choose not to answer this question Are you currently unemployed and looking for a job?: No Are you interested in more education?: No Please select the resources that you would like help with: None Currently or been in a relationship where the following occur: No concerns reported THRIVE Score: 0 AUDIT C Alcohol Use Questionnaire (AUDIT-C) 1. How often do you have a drink containing alcohol?: Never Total Score: 0 TUYET-7 AMB Questionnaire TUYET-7 Date TUYET - 7 assessed: 01/14/25 Feeling nervous, anxious, or on edge: 1 = Several days Not being able to stop or control worryin = More than half the days Worrying too much about different things: 2 = More than half the days Trouble relaxin = More than half the days Being so restless that it is hard to sit still: 3 = Nearly every day Becoming easily annoyed or irritable: 0 = Not at all Source: Developed by Drs. Colby Johnson, Adrinana Becerra, Jorge Roper and colleagues, with an educational pilo from [employer]. Physical exam (Primary Care) Vital Signs: Last Vital Signs Temp 97.1 F 01/14/25 11:26 Pulse 78 01/14/25 11:26 Resp 20 01/14/25 11:26 BP 128/70 01/14/25 11:26 Pulse Ox 98 01/14/25 11:26 Oxygen Delivery Method Room Air 01/14/25 11:26 BMI result Body Mass Index 22.7 Tobacco/Smoking Status: Tobacco use Status Tobacco use date assessed 01/14/25 01/14/25 11:31 Patient Tobacco Use Status Current someday Tobacco 01/14/25 11:30 Tobacco use type Cigarette 01/14/25 11:30 e-Cigarette/Vaping Use Never Used 01/14/25 11:30 PHQ-9: PHQ-9 Score PHQ-9: Total score 0 01/14/25 11:31 Depression Screening Interpretation: Negative Thrive Assessment: Date of Thrive Assessment Date Thrive assessed 01/07/25 01/14/25 11:30 Currently or been in a relationship where the following occur: No concerns reported Const General: alert; No acute distress Eyes Conjunctivae: conjunctivae normal Resp Auscultation: clear to auscultation bilaterally Cardio Rate: regular rate Rhythm: regular rhythm GI Inspection: Yes normal to inspection Extrem General: Yes normal to inspection and No edema Coding Level of Care Code Est Pt Level 4 (57346) Complex EM visit Add On G2211 Diagnoses Positive colorectal cancer screening using Cologuard test R19.5 Type 2 diabetes mellitus with hyperglycemia E11.65 Mild hypercholesterolemia E78.00 Asthma J45.909 Generalized anxiety disorder F41.1 Hypertension I10 Assessment & Plan Assessment & Plan (1) Positive colorectal cancer screening using Cologuard test: Code(s): R19.5 - Other fecal abnormalities Category: Medical Plan: Patient is reminded about referral to Gastroenterology (2) Type 2 diabetes mellitus with hyperglycemia: Code(s): E11.65 - Type 2 diabetes mellitus with hyperglycemia Category: Medical Plan: Decrease the amount of carbohydrate intake, pasta, bread, rice and potatoes are all sugar and that is aside from all the sweet stuff, remember that fruits are good but they are Sweet also. Hemoglobin A1c goal of less than 7.0. Patient i s on metformin 500 mg once a day (3) Mild hypercholesterolemia: Code(s): E78.00 - Pure hypercholesterolemia, unspecified Category: Medical Plan: Avoid fried foods, chicken skin, eggs, butter margarine, pastries and meat. Be it pork or beef they have a lot of cholesterol patient is on atorvastatin 10 mg at bedtime (4) Asthma: Code(s): J45.909 - Unspecified asthma, uncomplicated Category: Medical Plan: On albuterol inhaler. (5) Generalized anxiety disorder: Code(s): F41.1 - Generalized anxiety disorder Category: Medical Plan: Continue with lorazepam as needed (6) Hypertension: Code(s): I10 - Essential (primary) hypertension Category: Medical Plan: Blood pressure controlled without any medication Plan History of Present Illness The patient is a 69-year-old female presenting for a first-time visit with the physician for management of multiple chronic conditions. The patient has a history of hypertension, which is currently controlled without medication. She also has cerebral palsy, insomnia, generalized anxiety disorder, asthma, type 2 diabetes mellitus, and hypercholesterolemia. The patient's diabetes is managed with metformin 500 mg once daily, and her hemoglobin A1c was 6.2% in December, indicating good control. Her LDL cholesterol was noted to be high at 161 mg/dL in August, and she is on atorvastatin 10 mg at bedtime. The patient reports using an albuterol inhaler as needed for asthma, with episodes of shortness of breath occurring less than twice a week. She has been advised to use a controller inhaler if symptoms increase. The patient has cataracts but is not currently experiencing significant vision problems. She has been advised to follow up with her eye doctor annually. The patient experiences constipation and uses stool softeners, which have been somewhat effective. She maintains a diet high in fiber and drinks adequate water. Preventative care includes a positive stool test for colon cancer screening, with a follow-up appointment scheduled for April. Her last bone density test was in May 2021, and a new test has been requested. Health Maintenance - Colon cancer screening: Positive stool test, follow-up scheduled for April - Bone density test: Last conducted in May 2021, new test requested - Eye care: Annual follow-up with eye doctor recommended - Vaccinations: Up to date with shingles, tetanus, RSV, and pneumonia vaccines Social History - Family Status: Accompanied by niece during the visit - Exercise: Engages in regular walking - Diet: High in fiber, includes green leafy vegetables and adequate water intake Review of Systems - Respiratory: Reports dyspnea less than twice a week - Gastrointestinal: Reports constipation, denies blood in stool - Neurological: Denies significant vision problems despite cataracts Physical Exam General: Cooperative, healthy appearing, comfortable, no acute distress and well developed Orientation: Patient oriented x3 Limitations: No limitations Head: Normal to inspection Ears: Hearing grossly normal bilaterally Nose: Normal external nose present Face and sinus: Normal facial exam Eyes: Appearance normal, both eyes and all related structures; patient has cataracts but not currently causing problems Neck: Normal visual inspection and Yes full ROM Respiratory: Normal respiratory effort and able to speak in complete sentences. Clear to auscultation bilaterally; patient uses albuterol inhaler as needed, reports shortness of breath about once a week Cardiovascular: Regular rate and rhythm. Normal S1 and S2 GI: Normal to inspection. Soft to palpation and nontender; patient reports constipation, uses stool softeners Skin: No rashes or lesions noted Neuro: Patient oriented x3 Extremities: Normal to inspection Results - Labs: Hemoglobin A1c 6.2% in December, LDL cholesterol 161 mg/dL in August - Tests: Positive stool test for colon cancer screening - Imaging: Bone density test last conducted in May 2021 Plan The patient's diabetes management will continue with metformin 500 mg once daily, aiming to maintain hemoglobin A1c below 7%. A follow-up on cholesterol levels is necessary, with the goal of reducing LDL cholesterol below 100 mg/dL, and atorvastatin 10 mg at bedtime will be continued. For asthma, the patient will continue using the albuterol inhaler as needed, with consideration for a controller inhaler if symptoms worsen. The patient is advised to monitor her symptoms and report any increase in frequency or severity. The patient will follow up with her eye doctor annually to monitor cataracts and address any vision changes. A new bone density test has been requested to assess osteoporosis risk. Preventative care includes a follow-up appointment for colon cancer screening in April due to a positive stool test. The patient is encouraged to maintain her current diet and exercise regimen to support overall health. Patient was informed and verbally consented to the use of an ambient scribe for clinic note documentation during this visit. Discussion Notes During the visit, I discussed the importance of maintaining diabetes control with metformin and the need to monitor cholesterol levels, aiming for an LDL below 100 mg/dL. We talked about the use of albuterol for asthma and the potential need for a controller inhaler if symptoms increase. I advised the patient to follow up with her eye doctor annually and to schedule a bone density test to assess osteoporosis risk. We also reviewed the positive stool test for colon cancer screening and the upcoming follow-up appointment in April. Patient Instructions - Continue taking metformin 500 mg once daily. - Monitor cholesterol levels and continue atorvastatin 10 mg at bedtime. - Use albuterol inhaler as needed for asthma, and report any increase in symptoms. - Follow up with eye doctor annually. - Schedule and attend the bone density test. - Attend the follow-up appointment for colon cancer screening in April. - Maintain a diet high in fiber and engage in regular exercise. Orders: Orders Lipid Panel Today E78.00 - Pure hypercholesterolemia, unspecified Thyroid Stimulating Hormone Today E78.00 - Pure hypercholesterolemia, unspecified Free T4 (Free Thyroxine) Today E78.00 - Pure hypercholesterolemia, unspecified XR DEXA axial skeleton Today G80.9 - Cerebral palsy, unspecified, M81.0 - Age- related osteoporosis without current pathological fracture Complete Blood Count Auto Diff Today E78.00 - Pure hypercholesterolemia, unspecified Comprehensive Met. Panel Today E78.00 - Pure hypercholesterolemia, unspecified Vitamin B12 and Folate Today E78.00 - Pure hypercholesterolemia, unspecified
--- OUTSIDE RECORDS SUMMARY | 2025-01-14 13:25 | XMS_ITS | Clinical Summary ---
Author Organization [facility] Address [address] [place] [address] Care Team Providers Care Casino Gaming Worker Name Role Phone Unavailable Primary Care Provider Unavailabl e Allergies Active Allergy Reactions Criticality Noted Date Comments Sulfa Antibiotics 05/24/2020 No reaction documented. Medications LORazepam (Ativan) 1 MG tablet Take 1 mg by mouth if needed in the morning and at bedtime for anxiety. Active atorvastatin (Lipitor) 10 MG tablet Take 10 mg by mouth at bedtime. 5 Active D3-50 1.25 MG (47870 UT) capsule TAKE 1 CAPSULE BY MOUTH [...] Description 10/26/2024 8:30 AM EDT Office Visit [facility] [address] [place] [address] Castle-Gusman, Vivian, DDS Edentulous mandible with bone [...] EDT from Last 3 Months Insurance MEDICARE DENTAL - DQ [facility] SNP
== END 2025-01-14 12:13 | disposition home or self-care (01) ==
LOC: HO.HMCH 11:21
PROVIDERS: PCP Internal Medicine; Visit Provider Internal Medicine
DX: R19.5 Other fecal abnormalities (principal); E11.65 Type 2 diabetes mellitus with hyperglycemia; E78.00 Pure hypercholesterolemia, unspecified; J45.909 Unspecified asthma, uncomplicated; F41.1 Generalized anxiety disorder; I10 Essential (primary) hypertension

== ENCOUNTER → 2025-01-14 11:20 | Outpatient (BNVA) | payer OTHER, SELFPAY | PROVIDERS: PCP Internal Medicine; Visit Provider Internal Medicine ==

== ENCOUNTER 2025-02-09 06:54 | Outpatient (REF) | payer OTHER, SELFPAY ==
[2025-02-09 07:03] LABS: MANUAL DIFF FLAG NO
[2025-02-09 07:34] LABS: Hematocrit 46.0 % (37.0-47.0); Hemoglobin 15.4 g/dl (12.0-16.0); Imm Gran Abs Auto 0.03 X10*3/uL (0.00-0.03); Imm Gran Pct Auto 0.3 % (0.0-0.4); Lymphocytes Absolute Auto 2.8 X10*3/uL (1.2-4.9); Mean Corpuscular HGB Conc 33.5 g/dl (31.0-35.0); Mean Corpuscular Hemoglobin 30.1 pg (27.0-33.0); Mean Corpuscular Volume 89.8 fL (80.0-98.0); NRBC Abs Auto 0.000 X10*3/uL (0.0-0.012); NRBC Pct Auto 0.0 /100WBC (0.0-0.2); Platelet Count 241 X10*3/uL (160-400); Red Blood Count 5.12 X10*6/uL (4.20-5.50); White Blood Count 9.6 X10*3/uL (4.8-10.8)
[2025-02-09 08:04] LABS: Alanine Aminotransferase 15 U/L (0-31); Albumin Level 4.3 g/dL (3.5-5.0); Alkaline Phosphatase 69 U/L (39-117); Anion Gap 11 (12-20); Aspartate Amino Transferase 23 U/L (5-31); Blood Urea Nitrogen 22 mg/dL (9-16); Calcium 9.2 mg/dL (8.4-10.2); Carbon Dioxide 26 mmol/L (22-29); Chloride 107 mmol/L (96-108); Cholesterol 182 mg/dL (<200); Estimated Glomerular Filt Rate > 60; HDL Cholesterol 48 mg/dL (>40); Potassium 4.4 mmol/L (3.3-5.1); Sodium 140 mmol/L (135-145); Total Protein 6.8 g/dL (6.5-8.0); Triglycerides 121 mg/dL (<150)
[2025-02-09 08:11] LABS: Free T4 (Free Thyroxine) 0.95 ng/dL (0.71-1.85); Thyroid Stimulating Hormone 2.94 uIU/mL (0.32-4.0)
[2025-02-09 08:27] LABS: Folate 7.1 ng/mL (> or = 4.0); Vitamin B12 420 pg/mL (200-900)
== END 2025-02-09 06:55 | disposition home or self-care (01) ==
LOC: HO.LAB 06:54
PROVIDERS: PCP Internal Medicine; Visit Provider Internal Medicine
DX: E78.00 Pure hypercholesterolemia, unspecified (principal)
CPT/HCPCS: 36415; 80053; 80061; 82607; 82746; 84439; 84443; 85025

== ENCOUNTER 2025-04-08 08:49 | Outpatient (AMB) | payer OTHER, SELFPAY ==
[2025-04-08 09:01] VITALS: BP 144/72; PULSE 79; O2SAT 99; BMI 22.5
--- NOTE | 2025-04-08 09:01 | A.OFFVIS_ITS ---
Intake Vital Signs 04/08/25 09:01 Height 5 ft 2 in Weight 123 lb BMI 22.5 BP 144/72 H Blood Pressure Location Lt brachial Position Sitting Pulse 79 Pulse Source Pulse Oximeter Pulse Oximetry (%) 99 Oxygen Delivery Method Room Air Intake Visit Reasons: AWV Allergies Sulfa (Sulfonamide Antibiotics) (Sulfa (Sulfonamides)) Allergy (Mild, Verified 01/14/25 11:30) UNKNOWN Medication List - Last Reconciled 04/08/25 by Arianna Florian MD albuterol sulfate 90 mcg/actuation (Ventolin HFA) 2 puffs inhalation Q4-6H PRN atorvastatin 10 mg PO BEDTIME blood sugar diagnostic (Frontier SiliconTouch Ultra Test strips) As directed check the blood sugar once a day blood-glucose meter (SunFunderuch Ultra2 Meter) As directed blood-glucose sensor (burrp!yle Rah 3 Plus Sensor device) check glucose TID before meals - 1 sensor every 15 days blood-glucose,labor representative,cont (FreeStyle Rah 3 [place]) As directed cholecalciferol (vitamin D3) 1,250 mcg PO QWEEK 3 months docusate sodium (Colace) 100 mg PO BID lancets (FreeStyle Lancets) check glucose TID lancets As directed check the blood sugar once a day lorazepam 1 mg PO BID PRN metformin 500 mg PO ONCE 90 days naproxen (Naprosyn) 500 mg PO BID PRN polyethylene glycol 3350 (Miralax) 17 grams PO BID HPI AWV HPI Details BP at [facility] is good [facility] Medical History (Updated 04/08/25 @ 09:33 by Arianna Florian MD) Anxiety Hyperlipidemia Diabetes type 2 Exposure to hepatitis C Post-menopausal Hypertension Surgical History History of tubal ligation History of tonsillectomy Family History Father Medical history unknown Mother Diabetes Social History (Updated 04/08/25 @ 09:33 by Arianna Florian MD) Housing: Apartment Alcohol intake: former Year quit: 2019 Patient Tobacco Use Status: Current someday Tobacco user Tobacco use type: Cigarette Cigarette Packs Per Day: 0.5 Cigarettes Per Day: 10 Years Smoked: 1/2 pack a day, since 17 years old e-Cigarette/Vaping Use: Never Used Second Hand Smoke Exposure: Yes service: No Current occupational status: disabled Cognitive needs: No Hearing needs: No Vision needs: Yes (glasses) Questionnaire Medicare Wellness Checkup What [age] 65-70 What gender do you identify with?: female During the past 4 weeks, how much have you been bothered by emotional problems such as feeling anxious, depressed, irritable, sad or downhearted, and blue?: moderately During the past 4 weeks, has your physical & emotional health limited your social activities with family, friends, neighbors, or groups?: not at all During the past 4 weeks, how much bodily pain have you generally had?: very mild pain During the past 4 weeks, was someone available to help you if you needed & wanted help?: yes, as much as I wanted During the past 4 weeks, what was the hardest physical activity you could do for at least 2 minutes?: moderate Can you get to places out of walking distance without help? (For eg., can you travel alone on buses, taxis or drive your car?): Yes Can you go shopping for groceries or clothes without someone's help?: Yes Can you prepare your own meals?: Yes Can you do your housework without help?: Yes Because of any health problems, do you need the help of another person with your personal care needs such as eating, bathing, dressing or getting around the house?: No Can you handle your own money without help?: Yes During the past 4 weeks, how would you rate your health in general?: good During the past 4 weeks how have things been going for you?: good & bad parts about equal Are you having difficulties driving your car?: not applicable, I don't use a car Do you always fasten your seat belt when you are in a car?: yes, usually During past 4 weeks, have you been bothered by the following: never: Falling or dizzy when standing up, Sexual problems?, Teeth or denture problems? and Problems using the telephone? and seldom: Trouble eating well? and Tiredness or fatigue? Have you fallen 2 or more times in the past year?: No Are you afraid of falling?: No Are you a smoker?: yes, but I'm not ready to quit During the past 4 weeks, how many drinks of wine, beer, or other alcoholic beverages did you have?: no alcohol at all Do you exercise for about 20 minutes 3 or more times a week?: yes, most of the time Have you been given information to help with the following?: yes: Hazards in your house that might hurt you? and yes: Keeping track of your medications? How often do you have trouble taking medicines the way you have been told to take them?: I always take medicine as prescribed How confident are you that you can control & manage most of your health problems?: very confident What is your race?: White PHQ-9 Over the last 2 weeks, how often have you been bothered by any of the following problems? 1. Little interest or pleasure in doing things: not at all 2. Feeling down, depressed, or hopeless: not at all 3. Trouble falling or staying asleep, or sleeping too much: several days 4. Feeling tired or having little energy: several days 5. Poor appetite or overeating: not at all 6. Feeling bad about yourself - or that you are a failure or have let yourself or your family down: not at all 7. Trouble concentrating on things, such as reading the newspaper or watching television: not at all 8. Moving or speaking so slowly that other people could have noticed. Or the opposite - being so fidgety or restless that you have been moving around a lot more than usual: not at all 9. Thoughts that you would be better off or of hurting yourself in some way: not at all Total score: 2 Depression Screening Interpretation: Positive Depression Screening Done: Yes Source: Developed by Drs. Colby Johnson, Adrianna Becerra, Jorge Roper and colleagues, with an educational pilo from [employer]. Review of Systems Const Denies poor appetite and Denies weakness Eyes Denies no additional complaints ENT Reports Normal hearing present, Denies dizziness, Denies nasal congestion, Denies tinnitus and Denies sore throat Card Denies chest pain, Denies syncope, Denies rapid heart rate and Denies dyspnea Resp Denies cough and Denies dyspnea GI Denies change in stool character, Reports constipation, Denies diarrhea, Denies nausea and Denies vomiting Denies urinary frequency, Denies difficulty voiding and Denies dysuria Neuro Reports Normal hearing present, Denies confusion, Denies dizziness, Denies syncope and Denies weakness Psych Denies confusion Physical Exam Vital Signs: Last Vital Signs Pulse 79 04/08/25 09:01 BP 144/72 H 04/08/25 09:01 Pulse Ox 99 04/08/25 09:01 Oxygen Delivery Method Room Air 04/08/25 09:01 BMI result Body Mass Index 22.5 Const General: No confusion Orientation/consciousness: No confusion HEENT Head: Yes normocephalic Ears: external ears normal and TM's normal bilaterally Face and sinus: Yes normal facial exam Mouth: moist mucous membranes Throat: Yes tonsils normal Eyes Conjunctivae: conjunctivae normal Pupils: Equal, round and reactive pupils present and Pupil accommodation reflex normal Direct Ophthalmoscopy: normal light reflex Neck Neck: No lymphadenopathy Thyroid: Thyroid normal Chest Chest palpation & inspection: normal inspection of the chest Resp Effort & Inspection: normal respiratory effort and no audible wheezes Auscultation: clear to auscultation bilaterally, no crackles, no wheezes and lung sounds not diminished Cardio Rate: regular rate Rhythm: regular rhythm Peripheral pulses: radial pulses present and dorsalis pedis present GI Other: pedal pulse and pin prick good Palpation (GI): no masses Auscultation: normal bowel sounds and normoactive bowel sounds Rectal Exam - Female: deferred Skin General skin exam: no rashes or lesions noted Rashes: no rashes Neuro General: No confusion Cranial nerves: Yes Equal, round and reactive pupils present and Yes Normal hearing present Cognition (Neuro): normal cognition Gait exam (Neuro): Normal gait present Motor exam (neuro): 5/5 motor strength present throughout Deep tendon reflexes (DTR's): Right brachioradialis reflex intensity grade: 2+, Left brachioradialis reflex intensity grade: 2+, Right patellar reflex intensity grade: 2+ and Left patellar reflex intensity grade: 2+ Extrem General: No edema Results AMB Hemoglobin A1c AMB Hemoglobin A1c 6.5 % Last Edit by Alanna Lagunas CMA on 04/08/25 09 :25 Results Reviewed Results Reviewed: Laboratory Last Values Hgb A1c (Clinic) 6.5 % (4.0-6.0) H 04/08/25 09:25 Assessment & Plan Assessment & Plan (1) Encounter for subsequent annual wellness visit (AWV) in Medicare patient: Code(s): Z00.00 - Encounter for general adult medical examination without abnormal findings Plan: Patient is advised to eat healthy, keep well hydrated, keep active and have adequate sleep. (2) Type 2 diabetes mellitus with hyperglycemia: Code(s): E11.65 - Type 2 diabetes mellitus with hyperglycemia Plan: Decrease the amount of carbohydrate intake, pasta, bread, rice and potatoes are all sugar and that is aside from all the sweet stuff, remember that fruits are good but they are Sweet also. Hemoglobin A1c goal of less than 7.0. Patient is on metformin 500 mg once a day thank (3) Mild hypercholesterolemia: Code(s): E78.00 - Pure hypercholesterolemia, unspecified Plan: Avoid fried foods, chicken skin, eggs, butter margarine, pastries and meat. Be it pork or beef they have a lot of cholesterol LDL goal of less than 100 and triglyceride of less than 150 on atorvastatin 10 mg at bedtime (4) Hypertension: Code(s): I10 - Essential (primary) hypertension Plan: Continue with blood pressure medication. Decrease salt intake and exercise controlled (5) Positive colorectal cancer screening using Cologuard test: Code(s): R19.5 - Other fecal abnormalities Plan: Patient has a schedule with Gastroenterology in April 2025 (6) Cerebral palsy: Code(s): G80.9 - Cerebral palsy, unspecified (7) Asthma: Code(s): J45.909 - Unspecified asthma, uncomplicated Plan: Continuing with albuterol inhaler as needed. Stop smoking (8) Generalized anxiety disorder: Code(s): F41.1 - Generalized anxiety disorder Plan: Continue with present therapy (9) Tobacco abuse: Code(s): Z72.0 - Tobacco use Plan: decline lung cancer screening, still smoking Plan History of Present Illness The patient is a 70-year-old female presenting for an annual wellness visit. She has a history of hypertension, which is currently managed with medication, and her blood pressure readings at home are in the 140s. She also has a history of cerebral palsy, insomnia, generalized anxiety disorder, asthma, hypercholesterolemia, and diabetes mellitus. The patient was last seen on January 14, 2025, and was Cologuard positive in November, leading to a referral to gastroenterology. She is scheduled to see the medicare nurse in April 2025. Her last mammogram was in August 2024, and a bone density test is due. The patient follows up with orthopedics and podiatry for dermatophytosis of the nail and tinea pedis. Blood work from February 09 showed normal blood count, electrolytes, renal function, and liver function, with a blood sugar of 137 mg/dL and hemoglobin A1c of 6.2%. Her LDL cholesterol was 110 mg/dL, and folic acid and thyroid levels were within normal limits. The patient is on metformin for diabetes, atorvastatin for cholesterol, and uses an albuterol inhaler as needed for asthma. She also takes vitamin D, Colace for constipation, lorazepam as needed, and naproxen for pain, which she uses cautiously due to potential side effects. She has cataracts and has been given the option for surgical removal, but is not currently bothered by them. Health Maintenance - Colon cancer screening with stool test (Christophe) was positive, referral to gastroenterology made - Mammogram last done in August 2024, bone density test is due - Blood work from February 09 showed normal results, with a hemoglobin A1c of 6.2% - LDL cholesterol was 110 mg/dL, folic acid and thyroid levels within normal limits - Scheduled follow-up with gastroenterology in April 2025 - Cataracts present, surgical removal option discussed Social History - Smoking: Patient has been smoking since age 17, currently smokes half a pack per day - Alcohol: Patient does not consume alcohol Review of Systems - Cardiovascular: Denies chest pain, syncope, or palpitations - Respiratory: Denies dyspnea, cough, or wheezing - Gastrointestinal: Denies nausea, vomiting, dysphagia, or changes in bowel habits - Neurological: Denies dizziness, headaches, or balance issues - Musculoskeletal: Denies joint pain or swelling - Ophthalmologic: Reports cataracts, denies vision changes Physical Exam General: Cooperative, healthy appearing, comfortable, no acute distress and well developed Orientation: Patient oriented x3 Limitations: No limitations Head: Normal to inspection Ears: Hearing grossly normal bilaterally, but ear wax present, unable to see eardrum Nose: Normal external nose present Face and sinus: Normal facial exam Eyes: Appearance normal, both eyes and all related structures Neck: Normal visual inspection and Yes full ROM Respiratory: Normal respiratory effort and able to speak in complete sentences. Clear to auscultation bilaterally Cardiovascular: Regular rate and rhythm. Normal S1 and S2, extra beats noted but no complaints of passing out or chest pains GI: Normal to inspection. Soft to palpation and nontender Skin: No rashes or lesions noted Neuro: Patient oriented x3 Extremities: Normal to inspection Results - Labs: Normal blood count, electrolytes, renal function, liver function; blood sugar 137 mg/dL, hemoglobin A1c 6.2%, LDL cholesterol 110 mg/dL, folic acid and thyroid levels within normal limits Plan Patient was informed and verbally consented to the use of an ambient scribe for clinic note documentation during this visit. 1. Hypertension The patient's hypertension is currently managed with medication, and her home blood pressure readings are in the 140s. She is advised to continue monitoring her blood pressure and maintain her current medication regimen. 2. Diabetes Mellitus The patient's diabetes is managed with metformin 500 mg once daily. Her hemoglobin A1c was 6.2% in December, and the goal is to maintain it below 7.0%. 3. Hypercholesterolemia The patient is on atorvastatin 10 mg at bedtime to manage her hypercholesterolemia. Her LDL cholesterol was 110 mg/dL, with a goal of less than 100 mg/dL. 4. Asthma The patient uses an albuterol inhaler as needed for asthma management. She repo rts using it approximately once a week. 5. Cataracts The patient has cataracts and has been given the option for surgical removal. She is not currently bothered by them but reports increased brightness at night. 6. Preventative Care The patient was Cologuard positive in November and has been referred to gastroenterology for further evaluation. She is scheduled for a follow-up in April 2025. Her last mammogram was in August 2024, and a bone density test is due. Discussion Notes During the visit, we discussed the management of hypertension, diabetes, and hypercholesterolemia. The patient was advised to continue her current medication regimen and monitor her blood pressure regularly. We also reviewed the importance of maintaining her hemoglobin A1c below 7.0% and her LDL cholesterol below 100 mg/dL. The patient was informed about the option for cataract surgery and the upcoming gastroenterology appointment for further evaluation following her positive Cologuard test. We emphasized the importance of regular screenings and maintaining a healthy lifestyle, including smoking cessation. Patient Instructions - Continue taking all prescribed medications as directed. - Monitor blood pressure regularly and record readings. - Schedule and attend follow-up appointment with gastroenterology in April 2025. - Consider options for cataract surgery if vision becomes bothersome. - Maintain a healthy lifestyle, including smoking cessation. Orders: Orders AMB Hemoglobin A1c Today Z13.9 - Encounter for screening, unspecified Comprehensive Met. Panel 3 Months E11.65 - Type 2 diabetes mellitus with hyperglycemia XR DEXA axial skeleton Today I10 - Essential (primary) hypertension, M81.0 - Age-related osteoporosis without current pathological fracture Hemoglobin A1c 3 Months E11.65 - Type 2 diabetes mellitus with hyperglycemia Lipid Panel 3 Months E11.65 - Type 2 diabetes mellitus with hyperglycemia, E78.00 - Pure hypercholesterolemia, unspecified Quality Reporting (2019) Depression/Bipolar (159/160/161/177) PHQ-9: Total score: 2 Coding Level of Care Code Medicare Subsequent (G0439) Diagnoses Encounter for subsequent annual wellness visit (AWV) in Medicare patient Z00.00 Type 2 diabetes mellitus with hyperglycemia E11.65 Mild hypercholesterolemia E78.00 Hypertension I10 Positive colorectal cancer screening using Cologuard test R19.5 Cerebral palsy G80.9 Asthma J45.909 Generalized anxiety disorder F41.1 Tobacco abuse Z72.0
--- OUTSIDE RECORDS SUMMARY | 2025-04-08 09:20 | XMS_ITS | Clinical Summary ---
Author Organization [address] [facility] Address [address] [place] [address] Phone Care Team Providers Care Television Script Writer Name Role Phone Kody Pierre MD Primary Care Provider [phone] Allergies Active Allergy Reactions Criticality Noted Date [...] 07/21/2020 Insomnia 07/21/2020 Type 2 diabetes mellitus ([facility] [place], [facility] V 28) 07/21/2020 Encounters Date Type Department Care Team Description 02/23/2025 9:45 AM EDT Office Visit Orthopedic Surgery - [place] [address] [place] [id number] Helder Coulter, DPM Dermatophytosis of nail (Primary Dx); Tinea pedis of both feet; Diabetic mononeuropathy simplex ([facility] V24, [facility] V28); Ingrowing nail from Last 3 Months Immunizations Name Administration [...] Medical History Medical History Date Comments Diabetes ([facility], [facility] V28) DX:Diabetes (HCC) Type 2 diabetes mellitus ([facility] V24, [facility] V28) 07/21/2020 DX:Type 2 diabetes mellitus (HCC) Cerebral palsy ([facility]24, [facility] V28) 2019 DX:Cerebral palsy (HCC); COMMENT: infantile [...] - - Weight 65.3 kg (144 lb) 12/21/2024 9:53 AM EDT Height 154.9 cm (5' 0.98 ) 12/21/2024 9:53 AM ED T Body Mass Index 27.22 12/21/2024 9:53 AM EDT Plan of Treatment Upcoming Encounters Date Type Department Care Team (Late st Contact Info) Description 05/19/2025 9:15 AM EDT Office Visit Orthopedic Surgery - [place] [address] [id number] Helder Coulter, DPM [address] [id number] Health Maintenance Due Date Last Done Comments Breast Cancer Screening 1955 Diabetes: Annual GFR (Glomerular Filtration Rate) 1956 Diabetes: Annual Foot Exam 02/25/1966 Diabetes: Annual Retina Eye Exam 02/25/1966 Cholesterol Screening (Lipid Panel) 07/14/2022 Falls Risk Assessment 07/14/2022 Hepatitis C Screening 07/14/2022 Medicare Annual Wellness Visit 07/14/2022 Osteoporosis Screening (Bone Density Screening) 07/14/2022 Social Influencers of Health Screening 07/14/2022 Diabetes: Annual Urine Albumin-Creatinine Ratio (uACR) 07/15/2022 Diabetes: Blood Sugar Control Test (HGBA1C) 07/15/2022 Hypertension/CHF/CAD Annual BMP Blood Test 07/21/2022 Depression Screening 08/05/2024 COVID-19 Vaccine ( season) 2024 04/08/2024, 05/02/2023, 06/17/2022, Additional history exists Influenza Vaccine (#1) 2025 , 04/03/2023, 04/24/2022, Additional history exists Colorectal Cancer Screening: FIT-DNA (Cologuard) 11/05/2027 11/04/2024, 11/04/2024, 04/21/2021, Additional history exists DTaP,Tdap,and Td Vaccines (4 - Td or Tdap) 04/24/2032 04/24/2022, 06/13/2011, 01/26/2009 RSV Immunization Adult Patients Completed 06/22/2023 Pneumococcal Vaccine: 50+ Years Completed 03/08/2024, 08/15/2016, 07/16/2012 Zoster Vaccines Completed 06/29/2024, 04/06, 07/10/2016 HIB [...] to complete this topic Insurance MEDICAID - [place] [facility] MEDICARE [employer]VANTAGE Care Teams Television Script Writer Relationship Specialty Start Date End Date Kody Pierre MD [address] [place], [place] [id number] PCP - General Internal Medicine 05/05/20
--- OUTSIDE RECORDS SUMMARY | 2025-04-08 09:20 | XMS_ITS | Clinical Summary ---
Author Organization [facility] Address [address] [place] [address] Care Team Providers Care Delivery Agent Name Role Phone Unavailable Primary Care Provider Unavailabl e Allergies Active Allergy Reactions Criticality Noted Date Comments Sulfa Antibiotics 05/24/2020 No reaction documented. Medications LORazepam (Ativan) 1 MG tablet Take 1 mg by mouth if needed in the morning and at bedtime for anxiety. Active atorvastatin (Lipitor) 10 MG tablet Take 10 mg by mouth at bedtime. 5 Active D3-50 1.25 MG (44328 UT) capsule TAKE 1 CAPSULE BY MOUTH [...] 07/21/2020 Type 2 diabetes mellitus 07/21/2020 Immunizations Immunization Administration Dates Next Due Pfizer [...] 2025 , 04/03/2023, 04/24/2022, Additional history exists Tobacco Screening 10/26/2025 10/26/2024 DTaP/Tdap/Td Vaccines (4 - Td or Tdap) 04/24/2032 04/24/2022, 06/13/2011, 01/26/2009 RSV Patients and Patients Aged 60 years or older Completed 06/22/2023 Pneumococcal Vaccine: 50+ Years Completed [...] to [place] [id number] DENTAL - [facility]
== END 2025-04-08 10:01 | disposition home or self-care (01) ==
LOC: HO.HMCH 08:50
PROVIDERS: PCP Internal Medicine; Visit Provider Internal Medicine
DX: Z00.00 Encounter for general adult medical examination without abnormal findings (principal); E11.65 Type 2 diabetes mellitus with hyperglycemia; E78.00 Pure hypercholesterolemia, unspecified; G80.9 Cerebral palsy, unspecified; I10 Essential (primary) hypertension; R19.5 Other fecal abnormalities; J45.909 Unspecified asthma, uncomplicated; F41.1 Generalized anxiety disorder; Z72.0 Tobacco use

== ENCOUNTER → 2025-04-08 08:49 | Outpatient (BNVA) | payer OTHER, SELFPAY | PROVIDERS: PCP Internal Medicine; Visit Provider Internal Medicine | DX: Z00.00 Encounter for general adult medical examination without abnormal findings (principal); E11.65 Type 2 diabetes mellitus with hyperglycemia; E78.00 Pure hypercholesterolemia, unspecified; I10 Essential (primary) hypertension; R19.5 Other fecal abnormalities; G80.9 Cerebral palsy, unspecified; J45.909 Unspecified asthma, uncomplicated; F41.1 Generalized anxiety disorder; M81.0 Age-related osteoporosis without current pathological fracture; Z72.0 Tobacco use; Z79.84 Long term (current) use of oral hypoglycemic drugs | CPT/HCPCS: 83036; 96127 ==

== ENCOUNTER 2025-04-13 10:25 | Outpatient (AMB) | payer OTHER, SELFPAY ==
--- NOTE | 2025-04-13 10:29 | MHC.OFFVIS ---
Vital Signs 04/13/25 10:30 Height 5 ft 2 in Weight 123 lb BMI 22.5 BP 132/80 Blood Pressure Location Rt brachial Position Sitting Pulse 48 L Pulse Source Pulse Oximeter Pulse Oximetry (%) 99 Oxygen Delivery Method Room Air Intake Visit Reasons: Positive cologuard Intake Note: New pt for initial colo screening. Recent + Cologuard. CC: C.O. epigastric pain and constipation w/o sign of hemo. Pt denies any additional sx or concerns. Pt has never had colo previously. Pt typically opts for cologuard per anxiety. [employer] Driver Required: No Accompanied by: Daughter Allergies Sulfa (Sulfonamide Antibiotics) (Sulfa (Sulfonamides)) Allergy (Mild, Verified 04/13/25 10:33) UNKNOWN HPI HPI Positive cologuard: Details: 70 year old? female with past medical history of anxiety, diabetes, hypercholesteremia, exposure to hep C, osteoarthritis, asthma, hypertension is here today for pre colonoscopy screening.? Patient was sent to us by her PCP.? Patient never had colonoscopy in the past. Patient had positive Cologuard in November.? Patient reports constipation, taking Colace daily. Epigastric pain postprandially occasionally depending on what she eats. Denies any personal or family history of gastrointestinal disease, colon polyps, or CRC.? Denies history of difficulty with sedation or anesthesia in the past.? Negative for history of sleep apnea.? Denies any history of cardiac, renal, pulmonary, or hepatic disease.?? No history of infectious? diseases like hepatitis A, B, C, HIV or tuberculosis.? Patient is not on any anticoagulation [facility] Medical History Anxiety Hyperlipidemia Diabetes type 2 Exposure to hepatitis C Post-menopausal Hypertension Surgical History History of tubal ligation History of tonsillectomy Family History Father Medical history unknown Mother Diabetes Social History Housing: Apartment Alcohol intake: former Year quit: 2018 Patient Tobacco Use Status: Current someday Tobacco user Tobacco use type: Cigarette Cigarette Packs Per Day: 0.5 Cigarettes Per Day: 10 Years Smoked: 1/2 pack a day, since 17 years old e-Cigarette/Vaping Use: Never Used Second Hand Smoke Exposure: Yes service: No Current occupational status: disabled Cognitive needs: No Hearing needs: No Vision needs: Yes (glasses) Review of Systems Const Denies weight gain and Denies weight loss ENT Reports no additional complaints, Denies dysphagia and Denies odynophagia Card Reports no additional complaints Resp Reports no additional complaints GI Denies abdominal pain, Denies belching, Denies melena, Denies bloating, Denies change in bowel habits, Reports constipation, Denies dysphagia, Denies excessive flatus, Denies dyspepsia, Denies heartburn, Denies diarrhea, Denies loose stools, Denies nausea, Denies odynophagia and Denies vomiting Reports no additional complaints Musc Reports no additional complaints Neuro Reports no additional complaints Psych Reports no additional complaints Endo Reports no additional complaints Physical Exam Vital Signs: Last Vital Signs Pulse 48 L 04/13/25 10:30 BP 132/80 04/13/25 10:30 Pulse Ox 99 04/13/25 10:30 Oxygen Delivery Method Room Air 04/13/25 10:30 BMI result Body Mass Index 22.5 Assessment & Plan Assessment & Plan (1) Epigastric pain: Code(s): R10.13 - Epigastric pain Category: Medical (2) Screen for colon cancer: Code(s): Z12.11 - Encounter for screening for malignant neoplasm of colon Plan Patient denies any cardiac or respiratory symptoms.? Patient reports constipation currently taking Colace daily and MiraLax every other day. Patient had Anesthesia as a child for tonsillectomy. Otherwise patient had no Anesthesia. Patient is very anxious about going under anesthesia. Anxious about the procedure as well.? Denies any history of sleep apnea.? No history infectious diseases in the past or present.? Not on any anticoagulation therapy.? No family or personal history of colon cancer or polyps.? Patient denies melena, hematochezia, unintentional weight loss or ribbon like stools.? Discussed at length the pre-procedure,? prep, diet & medications as well as what to expect prior, during and after the procedure.?? Stressed the importance of good bowel prep.? Recommended the use of Vaseline or Calmoseptine OTC & baby wipes with bowel movements to promote comfort.? ?Patient verbalizes understanding and agrees to plan of care.? She was given the opportunity to ask questions and all questions answered.? We will see her after the procedure.? Medications: New bisacodyl (Dulcolax (bisacodyl)) Start taking 2 tablet every night 7 days before the procedure and 1 day before procedure take 4 tablets at noon time followed by MiraLax prep 10 mg (2 x 5 mg) PO BEDTIME 16 tabs 0RF Z12.11 - Encounter for screening for malignant neoplasm of colon polyethylene glycol 3350 (Miralax) As directed by gastro[facility]ology department at [facility] 238 grams PO ONCE 238 grams 0RF Z12.11 - Encounter for screening for malignant neoplasm of colon Coding Level of Care Code New Pt Level 3 (80213) Diagnoses Epigastric pain R10.13 Screen for colon cancer Z12.11 Time Spent (min) 40 Comment 30 minutes spent with patient and additional 10 minutes spent reviewing her records
[2025-04-13 10:30] VITALS: BP 132/80; PULSE 48; O2SAT 99; BMI 22.5
--- OUTSIDE RECORDS SUMMARY | 2025-04-13 12:14 | XMS_ITS | Clinical Summary ---
Author Organization 175 [facility] Address [address] [place] [address] Phone Care Team Providers Care Lumber Inspector Name Role Phone Kody Pierre MD Primary Care Provider [phone] Allergies Active Allergy Reactions Criticality Noted Date [...] 07/21/2020 Insomnia 07/21/2020 Type 2 diabetes mellitus ([facility] V24, [facility] V 28) 07/21/2020 Encounters Date Type Department Care Team Description 02/23/2025 9:45 AM EDT Office Visit Orthopedic Surgery - [place] [address] [place] [phone] Helder Coulter, DPM Dermatophytosis of nail (Primary Dx); Tinea pedis of both feet; Diabetic mononeuropathy simplex ([facility] V24, [facility] V28); Ingrowing nail from Last 3 Months [...] Medical History Medical History Date Comments Diabetes ([facility] V24, [facility] V28) DX:Diabetes (HCC) Type 2 diabetes mellitus ([facility] V24, [facility] V28) 07/21/2020 DX:Type 2 diabetes mellitus (HCC) Cerebral palsy ([facility] V24, [facility] V28) 2019 DX:Cerebral palsy (HCC); COMMENT: infantile [...] AM EDT Office Visit Orthopedic Surgery - [place] [id number] [phone] Helder Coulter, DPM [address] [phone] Health Maintenance Due Date Last [...] Depression Screening 08/05/2024 COVID-19 Vaccine ( season) 2025 04/08/2024, 05/02/2023, 06/17/2022, Additional history exists Influenza [...] to complete this topic Insurance MEDICAID - [place] [facility] [employer] Care Teams Lumber Inspector Relationship Specialty Start Date End Date Kody Pierre MD [address] [place], [place] [phone] PCP - General Internal Medicine 05/05/20
== END 2025-04-13 11:02 | disposition home or self-care (01) ==
LOC: HO.HGI 10:26
PROVIDERS: PCP Physician Assistant Medical; Visit Provider Nurse Practitioner Family
DX: Z01.818 Encounter for other preprocedural examination (principal); Z12.11 Encounter for screening for malignant neoplasm of colon; R19.5 Other fecal abnormalities; R10.13 Epigastric pain
CPT/HCPCS: 99203

== ENCOUNTER → 2025-04-13 10:25 | Outpatient (BNVA) | payer OTHER, SELFPAY | PROVIDERS: PCP Physician Assistant Medical; Visit Provider Nurse Practitioner Family | DX: R10.13 Epigastric pain (principal); Z12.11 Encounter for screening for malignant neoplasm of colon; K59.09 Other constipation | CPT/HCPCS: 99202 ==

== ENCOUNTER 2025-06-01 06:54 | Day surgery (SDC) | payer OTHER, SELFPAY ==
--- OUTSIDE RECORDS SUMMARY | 2025-04-28 15:30 | XMS_ITS | Clinical Summary ---
Author Organization [facility] Address [address] [place] [address] Care Team Providers Care Supervisor Small Appliance Assembly Name Role Phone Unavailable Primary Care Provider Unavailabl e Allergies Active Allergy Reactions Criticality Noted Date Comments Sulfa Antibiotics 05/24/2020 No reaction documented. Medications LORazepam (Ativan) 1 MG tablet Take 1 mg by mouth if needed in the morning and at bedtime for anxiety. Active atorvastatin (Lipitor) 10 MG tablet Take 10 mg by mouth at bedtime. 5 Active D3-50 1.25 MG (19796 UT) capsule TAKE 1 CAPSULE BY MOUTH [...] 1956 Diabetes: Hemoglobin A1C 1956 FIT 1956 Lipid Panel 1956 SDOH Screening 1956 Sigmoidoscopy 1956 Diabetes: Foot Exam 02/25/1966 Eye Exam 02/25/1966 Alcohol/Substance Use Screening 1968 Hepatitis C Screening 02/25/1974 Diabetes: Urine Protein Screening 02/25/1975 Mammogram 1996 FOBT 04/21/2022 04/21/2021 Colorectal Cancer Screening 04/21/2024 FIT DNA/Cologuard 04/21/2024 04/21/2021 COVID-19 Vaccine ( season) 2025 04/08/2024, 05/02/2023, [...] age to complete this topic Insurance [place] [address] [place] [id number] DENTAL - [facility]
--- OUTSIDE RECORDS SUMMARY | 2025-04-28 15:30 | XMS_ITS | Clinical Summary ---
Author Organization 175 [facility] Address [address] [place] [address] Phone Care Team Providers Care Service Delivery Analyst Name Role Phone Kody Pierre MD Primary Care Provider [phone] Allergies Active Allergy Reactions Criticality Noted Date [...] 07/21/2020 Insomnia 07/21/2020 Type 2 diabetes mellitus ([facility] V24, [facility] V 28) 07/21/2020 Encounters Date Type Department Care Team Description 02/23/2025 9:45 AM EDT Office Visit Orthopedic Surgery - [place] [address] [place] [phone] Helder Coulter, DPM Dermatophytosis of nail (Primary Dx); Tinea pedis of both feet; Diabetic mononeuropathy simplex ([facility] V24, [facility] V28); Ingrowing nail from Last [...] Medical History Medical History Date Comments Diabetes ([facility] V24, [facility] V28) DX:Diabetes (HCC) Type 2 diabetes mellitus ([facility] V24, [facility] V28) 07/21/2020 DX:Type 2 diabetes mellitus (HCC) Cerebral palsy ([facility] V24, [facility] V28) 2019 DX:Cerebral palsy (HCC); [...] AM EDT Office Visit Orthopedic Surgery - [place] [phone] [phone] Helder Coulter, DPM [address] [place] [address] [phone] Health Maintenance Due Date Last [...] to complete this topic Insurance MEDICAID - [place] [facility] [employer] Care Teams Service Delivery Analyst Relationship Specialty Start Date End Date Kody Pierre MD [address] [place], [place] [phone] PCP - General Internal Medicine 05/05/20
[2025-05-28 14:44] VITALS: BMI 22.5
[2025-06-01 07:06] VITALS: BMI 22.2
--- NOTE | 2025-06-01 07:15 | HO.ANESPROP2 ---
Documented by User: Luz Mora NP 05/27/25 14:33 HPI - Anesthesia Eval Consult details Narrative: 70 yr old female for colonoscopy Asthma: prn albuterol ~1x weekly PMFSH Active Problems Active Problems: All Active Problems (Updated 04/08/25 @ 09:33 by Arianna Florian MD) Tobacco abuse (Acute) Generalized anxiety disorder (Acute) Type 2 diabetes mellitus with hyperglycemia (Acute) Positive colorectal cancer screening using Cologuard test (Acute) Mild hypercholesterolemia (Acute) Exposure to hepatitis C (Acute) Follow-up exam (Acute) Elevated glucose level (Acute) Encounter for subsequent annual wellness visit (AWV) in Medicare patient (Acute) Epigastric pain (Acute) Osteoarthritis (Acute) Asthma (Acute) Upper respiratory tract infection (Acute) Adult general medical exam (Acute) Insomnia disorder (Acute) Post-menopausal (Acute) Cerebral palsy (Acute) Hypertension (Acute) Past Medical History Medical History (Updated 06/01/25 @ 07:17 by Maribel Franks RN) Cerebral palsy Anxiety Hyperlipidemia Diabetes type 2 Exposure to hepatitis C Post-menopausal Hypertension Family History Family History Father Medical history unknown Mother Diabetes Surgical History Surgical History History of tubal ligation History of tonsillectomy Social History Social History Housing: Apartment Are you a primary healthcare network consultant to a significant other at home: No Do you presently have visiting nurse or other home services: No Alcohol intake: former Year quit: 2019 Patient Tobacco Use Status: Current everyday Tobacco user Tobacco use type: Cigarette Cigarette Packs Per Day: 0.5 Cigarettes Per Day: 10 Years Smoked: 1/2 pack a day, since 17 years old Smoked in Last 30 Days: Yes e-Cigarette/Vaping Use: Never Used Patient Interested in Nicotine Replacement: No Second Hand Smoke Exposure: Yes Have you been hit, kicked, punched, or otherwise hurt by someone within the past year? If so, by whom?: No Are you DNR?: No Advance Directives: No Advance Directives Information Provided: Yes service: No Current occupational status: disabled Cognitive needs: No Hearing needs: No Vision needs: Yes (glasses) Meds Allergies Allergy/AdvReac Type Severity Reaction Status Date / Time Sulfa (Sulfonamide Allergy Mild UNKNOWN Verified 06/01/25 07:03 Antibiotics) (Sulfa (Sulfonamides)) Documented by User: Tory Collazo, 06/01/25 07:39 [facility] Past Medical History Medical History (Updated 06/01/25 @ 07:17 by Maribel Franks RN) Cerebral palsy Anxiety Hyperlipidemia Diabetes type 2 Exposure to hepatitis C Post-menopausal Hypertension Family History Family History Father Medical history unknown Mother Diabetes Family history of problems with anesthesia: No Surgical History Surgical History History of tubal ligation History of tonsillectomy History of Problems with Anesthesia: No Social History Social History Housing: Apartment Are you a primary healthcare network consultant to a significant other at home: No Do you presently have visiting nurse or other home services: No Alcohol intake: former Year quit: 2019 Patient Tobacco Use Status: Current everyday Tobacco user Tobacco use type: Cigarette Cigarette Packs Per Day: 0.5 Cigarettes Per Day: 10 Years Smoked: 1/2 pack a day, since 17 years old Smoked in Last 30 Days: Yes e-Cigarette/Vaping Use: Never Used Patient Interested in Nicotine Replacement: No Second Hand Smoke Exposure: Yes Have you been hit, kicked, punched, or otherwise hurt by someone within the past year? If so, by whom?: No Are you DNR?: No Advance Directives: No Advance Directives Information Provided: Yes service: No Current occupational status: disabled Cognitive needs: No Hearing needs: No Vision needs: Yes (glasses) Meds Allergies Allergy/AdvReac Type Severity Reaction Status Date / Time Sulfa (Sulfonamide Allergy Mild UNKNOWN Verified 06/01/25 07:03 Antibiotics) (Sulfa (Sulfonamides)) Exam Exam Date and Time: 06/01/25 0715 Height,Weight and Vital Signs: Height 5 ft 2 in Weight 55 kg Vital Signs Temperature 98.1 F 06/01/25 07:28 Pulse Rate 72 06/01/25 07:28 Respiratory Rate 18 06/01/25 07:28 Blood Pressure 159/78 H 06/01/25 07:28 Pulse Oximetry 97 06/01/25 07:28 Oxygen Delivery Method Room Air 06/01/25 07:28 Temperature 98.1 F 06/01/25 07:28 Pulse Rate 72 06/01/25 07:28 Respiratory Rate 18 06/01/25 07:28 Blood Pressure 159/78 H 06/01/25 07:28 Pulse Oximetry 97 06/01/25 07:28 Oxygen Delivery Method Room Air 06/01/25 07:28 Airway Mallampati Class: I TM Dist: >3cm Neck ROM: Full Denture: Upper Heart: S1S2 Lungs: CTAB Assessment and Plan Assessment Anesthesia Assessment: Anesthesia Plan Discussed and Chart Reviewed Final Anesthetic Review Family History of Problems with Anesthesia: No History of Problems with Anesthesia: No NPO: Yes ASA Class: III Final Preanesthetic Review: No Changes in Pt Med Stat, Meds/Allgs Chart Reviewed, Consent Obtained/Reviewed and Anes Risks/Benef Reviewed Patient Risk: Low Procedure Risk: Low Anesthetic Plan Anesthetic Plan: MAC: and Agree w/ Assess. and Plan Disposition: Standard PACU
[2025-06-01] MEDS: Lactated Ringers 1,000 ML 100 ML IVCONT (07:17)
[2025-06-01 07:21] LABS: Glucose, Whole Blood 162 mg/dL (60-115)
[2025-06-01 07:28] VITALS: BP 159/78; PULSE 72; RESP 18; TEMP 36.7; O2SAT 97
--- NOTE | 2025-06-01 07:44 | MHC.SHP ---
Pre-Procedural Eval Section A - 24 Hr Update-Section A only Date of Service: 06/01/25 Section B - Complete if H&P > 30 days Chief Complaint: Other fecal abnormalities,screening Relevant Family History (Specify if Yes): No Relevant Social History: Tobacco Use Present Medications: see Short Stay Collaborative assessment Medical History: Significant History (Cerebral palsy Anxiety Hyperlipidemia Diabetes type 2 Exposure to hepatitis C Post-menopausal Hypertension) History of Previous Operations: Relevant previous surgery/procedure and date(s) ( History of tubal ligation History of tonsillectomy) Allergies: Allergies Allergy/AdvReac Type Severity Reaction Status Date / Time Sulfa (Sulfonamide Allergy Mild UNKNOWN Verified 06/01/25 07:03 Antibiotics) (Sulfa (Sulfonamides)) Review of Systems Sugical H&P ROS: Negative: Constitution, Cardiovascular, Respiratory, Neurological, Psychiatric, Hem-Onc, Allergic/Immunologic, Gastrointestinal, Genitourinary, Musculoskeletal, Integumentary, Endocrine and Eyes/Ears/Nose/Throat Exam Surgical H&P Exam: Normal: HEENT, Normal: Heart, Normal: Lungs, Normal: Extremities, Normal: Abdomen, Normal: Skin and Normal: Neurological (slurred speech) Plan Diagnosis/Plan: Unchanged I have reviewed the history and physical and performed a pertinent physical examination on my patient. No changes have occurred unless specified. Time Spent With Patient Time: Total time managing care of this patient today ____ minutes.
[2025-06-01 08:20] VITALS: BP 90/55; PULSE 75; RESP 12; TEMP 36.1; O2SAT 96
--- NOTE | 2025-06-01 08:20 | P.OPN-COLO_ITS ---
Colonoscopy Operative Note Operative Note Date of Service: 06/01/25 Narrative: Operative Information Procedure Description: Colonoscopy Indication: pos cologuard Anesthesia: MAC COLONOSCOPY Instrument: Olympus variable stiffness pediatric scope 190L Colonoscopy Monitoring: Vital signs and clinical assessment, continuous EKG monitoring, Pulse oximetry, Carbon Dioxide monitoring and blood pressure monitoring were done throughout the procedure. Colon withdrawal time was 12 minutes. Procedure: The patient was placed in the left lateral decubitis position and pre-procedure medications were administered. After a digital rectal examination of the ano-rectum, the video colonoscope was inserted into the rectum and advanced through the colon to the cecum/TI. The colonoscope was slowly withdrawn in a retrograde panoramic fashion and the colon mucosa was carefully examined including a retroflexed view of the rectum. Findings and interventions are described below. Procedure Difficulty: easy Findings: Terminal Ileum-superficially intubated and normal Cecum:normal Right sided retroflexion- normal Ascending Colon: normal Transverse Colon -normal Descending Colon:normal Sigmoid Colon: moderate severe diverticulosis, 10-12 mm sessile polyp lifted with eleview and removed with cold snare Rectum: Retroflexion with samll internal hemorrhoids seen, grade I Anorectum - normal Intervention: cold snare and eleview Colon preparation: Boscobel Bowel Preparation Scale Right colon; 2 Transverse colon: 2 Left colon; 2 (0 = Unprepared colon segment with mucosa not seen due to solid stool that cannot be cleared. 1 = Portion of mucosa of the colon segment seen, but other areas of the colon segment not well seen due to staining, residual stool and/or opaque liquid. 2 = Minor amount of residual staining, small fragments of stool and/or opaque liquid, but mucosa of colon segment seen well. 3 = Entire mucosa of colon segment seen well with no residual staining, small fragments of stool or opaque liquid) Impression and Post Procedure Diagnosis: diverticulosis colon polyp x 1 internal hemorrhoids Plan: High fiber diet leaflet Avoid straining at stool, epsom salts and sitz bath, anusol supps or cream Repeat Colonoscopy in 3 years due to polyp or earlier if clinically indicated Above findings were reviewed with the patient and relevant handouts were provided if indicated.
[2025-06-01 08:36] VITALS: BP 120/79; PULSE 72; RESP 16; TEMP 36.1; O2SAT 98
== END 2025-06-01 09:09 | disposition home or self-care (01) ==
PROVIDERS: PCP Internal Medicine; Visit Provider Internal Medicine Gastroenterology
PROC: 0DJD8ZZ Inspection of Lower Intestinal Tract, Via Natural or Artificial Opening Endoscopic (ICD-10-PCS; CPT 45378; principal; 2025-06-01 08:30)
DX: R19.5 Other fecal abnormalities (principal); Z12.11 Encounter for screening for malignant neoplasm of colon; K64.0 First degree hemorrhoids; K63.5 Polyp of colon; K57.30 Diverticulosis of large intestine without perforation or abscess without bleeding; E11.9 Type 2 diabetes mellitus without complications
CPT/HCPCS: 45385; 45381; 82947; 88305; J2704

== ENCOUNTER → 2025-06-01 06:54 | Outpatient (BNV) | payer OTHER, SELFPAY | PROVIDERS: PCP Internal Medicine; Visit Provider Internal Medicine Gastroenterology | DX: Z12.11 Encounter for screening for malignant neoplasm of colon (principal); R19.5 Other fecal abnormalities; K63.5 Polyp of colon; K57.30 Diverticulosis of large intestine without perforation or abscess without bleeding; K64.0 First degree hemorrhoids | CPT/HCPCS: 45381; 45385 ==